=== PATIENT | female | born 1940 | race Caucasian/White ===

== ENCOUNTER → 2017-07-27 10:10 | Outpatient (REF) | payer MEDICARE, BC, SELFPAY ==
[2017-07-27 13:47] LABS: Basophils % 0.6 % (0.1-2.0); Eosinophils # 0.1 K/mm3 (0.0-0.4); Hematocrit 44.2 % (37.0-47.0); Hemoglobin 14.7 g/dL (12.2-16.2); Lymphocytes # 1.2 K/mm3 (0.7-4.5); Mean Corpuscular HGB Conc 33.2 g/dL (31.8-35.4); Mean Corpuscular Hemoglobin 31.3 pg (27.0-31.2); Mean Corpuscular Volume 94.2 fl (81-99); Mean Platelet Volume 7.3 fl (7.4-10.4); Monocytes # 0.3 K/mm3 (0.1-1.0); Monocytes % 4.4 % (1.7-9.3); Neutrophils # 5.7 K/mm3 (1.8-7.8); Platelet Count 442 K/mm3 (142-424); Red Blood Count 4.69 M/mm3 (4.20-5.40); Red Cell Distribution Width 13.4 % (11.5-17.5); White Blood Count 7.3 K/mm3 (4.8-10.8)
[2017-07-27 13:50] LABS: Alanine Aminotransferase 13 U/L (12-78); Albumin Level 3.9 gm/dL (3.4-5.0); Albumin/Globulin Ratio 1.2 (1.1-1.8); Alkaline Phosphatase 154 U/L (46-116); Anion Gap 19.4 mEq/L (5-15); Aspartate Amino Transferase 16 U/L (15-37); Bilirubin,Total 0.7 mg/dL (0.2-1.0); Blood Urea Nitrogen 18 mg/dL (7-18); Calcium 9.6 mg/dL (8.5-10.1); Carbon Dioxide 22 mmol/L (21.0-32.0); Chloride 97 mmol/L (98-107); Creatinine,Serum 0.93 mg/dL (0.55-1.02); Estimated Glomerular Filt Rate 58 ml/min (>60); GFR (African American) 71 ML/MIN (>60); Globulin 3.3 gm/dl (1.3-3.2); Glucose 95 mg/dL (74-106); Potassium 5.4 mmoL/L (3.5-5.1); Sodium 133 mmol/L (136-145); Total Protein,Serum 7.2 gm/dL (6.4-8.2)
== END ==
LOC: LAB.CARL 10:10
PROVIDERS: Visit Provider Emergency Medicine
DX: R53.1 Weakness (principal)
CPT/HCPCS: 80053; 85025

== ENCOUNTER 2018-07-30 11:11 | Inpatient (IN) ==
--- NOTE | 2018-07-30 11:25 | Emergency Department Note ---
ED Disposition Clinical Impression: Hip fracture, Pelvic fracture Hip fracture, intertrochanteric Qualifiers: Encounter type: initial encounter Fracture type: closed Fracture alignment: displaced Laterality: left Qualified Code(s): S72.142A - Displaced intertrochanteric fracture of left femur, initial encounter for closed fracture Disposition: Admitted As Inpatient Condition on Discharge: Fair Time of Disposition: 16:15 - Critical Care Critical Care Time: No Attestation: On , the high probability of a clinically significant, sudden or life threat ening deterioration of the following system(s) required my full and direct attention, intervention and personal management. The time I documented below is in addition to time spent performing reported procedures but includes the following listed in this critical care notation. Medical Decision Making - Medical Records Medical records reviewed: Yes: I reviewed the patient's medical records. - Rudy Inquiry Pt receiving controlled substance: No Rudy was queried for this patient: No Vital Signs: 07/30/18 11:11 07/30/18 11:36 07/30/18 12:11 Temperature 97.7 F Temperature Source Oral Pulse Rate Pulse Rate [Left Radial] 48 L 47 L 50 L Respiratory Rate 16 Blood Pressure Blood Pressure [Right Arm] 115/72 133/63 157/70 H Blood Pressure Mean [Right Arm] 86 86 99 Blood Pressure Source Blood Pressure Source [Right Arm] Automatic Cuff Automatic Cuff Blood Pressure Position Blood Pressure Position [Right Arm] Sitting Sitting 02 Sat by Pulse Oximetry 98 95 96 Oxygen Delivery Method Room Air 07/30/18 12:30 07/30/18 13:30 07/30/18 14:13 Temperature Temperature Source Pulse Rate Pulse Rate [Left Radial] 58 L 59 L 60 Respiratory Rate 16 Blood Pressure Blood Pressure [Right Arm] 162/77 H 133/81 124/61 Blood Pressure Mean [Right Arm] 105 98 82 Blood Pressure Source Blood Pressure Source [Right Arm] Automatic Cuff Blood Pressure Position Blood Pressure Position [Right Arm] Supine 02 Sat by Pulse Oximetry 97 98 Oxygen Delivery Method Room Air 07/30/18 14:23 Temperature 98 F Temperature Source Oral Pulse Rate 58 L Pulse Rate [Left Radial] Respiratory Rate 16 Blood Pressure 120/78 Blood Pressure [Right Arm] Blood Pressure Mean [Right Arm] Blood Pressure Source Automatic Cuff Blood Pressure Source [Right Arm] Blood Pressure Position Supine Blood Pressure Position [Right Arm] 02 Sat by Pulse Oximetry Oxygen Delivery Method Room Air - Lab Data Lab Results 07/30/18 11:35: WBC 15.2 H, RBC 3.49 L, Hgb 9.8 L, Hct 31.6 L, MCV 90.7, MCH 28.1, MCHC 30.9 L, RDW 15.0, Plt Count 435 H, MPV 7.7, Neut % (Auto) 86.9 H, Lymph % (Auto) 8.6 L, [place] % (Auto) 4.1, Eos % (Auto) 0.2, Baso % (Auto) 0.2, Neut # (Auto) 13.2 H, Lymph # (Auto) 1.3, [place] # (Auto) 0.6, Eos # (Auto) 0.0, Baso # (Auto) 0.0, Total Counted 100, Neutrophils % (Manual) 93 H, Lymphocytes % (Manual) 5 L, Monocytes % (Manual) 2, Platelet Estimate Slight increase, RBC Morphology Normal 07/30/18 11:35: Sodium 133 L, Potassium 4.9, Chloride 101, Carbon Dioxide 23, Anion Gap 13.9, BUN 21 H, Creatinine 0.98, Estimated Creat Clear 33, Estimated GFR 55 L, Est GFR ( Amer) 66, Glucose 153 H, Calcium 9.0, Total Bilirubin 0.3, AST 14 L, ALT 15, Alkaline Phosphatase 127 H, Troponin I 0.02, Total Protein 6.4, Albumin 3.3 L, Globulin 3.1, Albumin/Globulin Ratio 1.1 07/30/18 11:35: PT 10.1, INR 0.98, APTT 23.5 L 07/30/18 11:35: Plasma/Serum Alcohol 0 Result diagrams: 08/01/18 09:29 08/01/18 09:29 Orders (Tests/Meds): ED MEDICATIONS Generic Name Dose Route Start Last Admin Trade Name Mary PRN Reason Stop Dose Admin Aspirin 81 mg 08/01/18 11:15 08/01/18 13:01 Aspirin 81mg Enteric Coated Tablet PO 08/31/18 11:14 81 mg DAILY JOSE Administration Folic Acid 1 mg 07/31/18 11:00 08/01/18 09:57 Folic Acid 1mg Tablet PO 08/30/18 10:59 1 mg DAILY JOSE Administration Hydromorphone HCl 0.5 mg 07/30/18 18:39 07/31/18 05:50 Dilaudid 2mg/Ml Syringe IV 08/29/18 18:38 0.5 mg Q2HP PRN Administration Severe Pain Ceftriaxone Sodium 1 gm/ 50 mls @ 100 mls/hr 08/01/18 11:00 08/01/18 10:42 Sodium Chloride IV 08/15/18 10:59 100 mls/hr Q24H JOSE Administration Protocol Lorazepam 0.5 mg 07/31/18 10:49 Ativan 2mg/Ml Vial IV 08/30/18 10:48 Q6HP PRN Agitation Metoprolol Tartrate 12.5 mg 07/31/18 11:15 08/01/18 08:27 Lopressor 25mg Tablet PO 08/30/18 11:14 12.5 mg BID JOSE Administration Nicotine 21 mg 07/30/18 18:40 Nicoderm 21mg/24hr Patch TD 08/29/18 18:39 DAILYP PRN Nicotine Cravings Oxazepam 10 mg 07/30/18 14:24 Serax 10mg Capsule PO 08/29/18 14:23 Q6HP PRN Alcohol Withdrawal Oxycodone/Acetaminophen 1 each 07/30/18 18:38 07/31/18 03:57 Percocet 5/325mg Tablet PO 08/29/18 18:37 1 each Q6HP PRN Administration Breakthru Severe Pain Sodium Chloride 10 ml 07/30/18 14:24 Saline Flush 10ml Syringe IV 08/29/18 14:23 NEEDED PRN Maintain IV Site Discontinued Medications Generic Name Dose Route Start Last Admin Trade Name Freq PRN Reason Stop Dose Admin Ephedrine Sulfate 50 mg 07/30/18 18:05 07/30/18 18:10 Ephedrine Sulf 50mg/Ml Amp IV 10 mg ONCE PRN Administration Hypotension Sodium Chloride 250 mls @ 25 mls/hr 07/30/18 13:15 07/31/18 01:53 Sod Chlor 0.9% 250ml Bag IV 07/31/18 13:14 Not Given .Q10H JOSE Sodium Chloride 250 mls @ 25 mls/hr 07/30/18 14:24 07/31/18 10:57 Sod Chlor 0.9% 250ml Bag IV 07/31/18 13:14 Not Given .Q10H JOSE Sodium Chloride 1,000 mls @ 100 mls/hr 07/30/18 14:24 07/31/18 05:14 Sod Chlor 0.9% 1000ml Bag IV 08/29/18 14:23 Not Given .Q10H JOSE Lactated Ringer's 1,000 mls @ 25 mls/hr 07/30/18 18:15 07/31/18 19:02 Lactated Ringer's 1000 Ml Bag IV 08/29/18 18:14 Not Given .Q25H JOSE Cefazolin Sodium 1 gm/ Sodium 50 mls @ 100 mls/hr 07/30/18 18:45 07/31/18 03:05 Chloride IV 07/31/18 11:14 100 mls/hr Q8H JOSE Administration Protocol Cefazolin Sodium 1 gm/ Sodium 50 mls @ 100 mls/hr 07/31/18 08:30 07/31/18 17:14 Chloride IV 07/31/18 16:59 100 mls/hr Q8H JOSE Administration Protocol Multivitamins 10 ml/ Thiamine 1,015 mls @ 125 mls/hr 07/31/18 11:00 08/01/18 09:57 HCl 100 mg/ Magnesium Sulfate IV 08/30/18 10:59 Not Given 2 gm/ Lactated Ringer's DAILY JOSE Cefazolin Sodium 1 gm/ Sodium 50 mls @ 100 mls/hr 08/01/18 07:00 08/01/18 06:10 Chloride IV 08/15/18 06:59 100 mls/hr Q12H JOSE Administration Ketorolac Tromethamine 15 mg 07/30/18 11:22 07/30/18 11:39 Toradol 30mg/Ml Vial IV 07/30/18 11:23 15 mg ONCE ONE Administration Metoprolol Tartrate 12.5 mg 07/30/18 13:26 07/30/18 14:14 Lopressor 25mg Tablet PO 07/30/18 13:27 Not Given ONCE ONE Morphine Sulfate 2 mg 07/30/18 12:15 07/30/18 12:26 Morphine 2mg/Ml Syringe IV 07/30/18 12:16 2 mg ONCE ONE Administration Morphine Sulfate 2 mg 07/30/18 14:13 07/30/18 14:15 Morphine 2mg/Ml Syringe IV 07/30/18 14:14 2 mg ONCE ONE Administration Morphine Sulfate 2 mg 07/30/18 14:24 Morphine 4mg/Ml Syringe IV 08/29/18 14:23 Q2HP PRN Severe Pain Ondansetron HCl 4 mg 07/30/18 12:16 07/30/18 12:26 Zofran 4mg/2ml Vial IV 07/30/18 12:17 4 mg ONCE ONE Administration Ondansetron HCl 4 mg 07/30/18 14:24 07/31/18 08:10 Zofran 4mg/2ml Vial IV 08/29/18 14:23 4 mg Q8HP PRN Administration Nausea Promethazine HCl 6.25 mg 07/30/18 18:27 07/30/18 18:30 Phenergan 25mg/Ml 1ml Vial IV 07/30/18 20:27 6.25 mg [id number] PRN Administration Nausea And Vomiting Sodium Chloride 10 ml 07/30/18 11:20 Saline Flush 10ml Syringe IV 08/29/18 11:19 NEEDED PRN Maintain IV Site Sodium Chloride 10 ml 07/30/18 14:24 08/01/18 10:41 Saline Flush 10ml Syringe IV 08/29/18 11:19 10 ml NEEDED PRN Administration Maintain IV Site Sodium Chloride 10 ml 07/30/18 18:03 Saline Flush 10ml Syringe IV 08/29/18 18:02 NEEDED PRN Maintain IV Site Sodium Chloride 25 ml 07/30/18 18:27 Sod Chlor 0.9% 25ml Bag IV 07/30/18 20:27 NEEDED PRN for Use with IV Promethazine Sodium Polystyrene Sulfonate 15 gm 07/31/18 10:49 07/31/18 12:03 Kayexalate 15gm/60ml Bottle PO 07/31/18 10:50 15 gm ONCE ONE Administration ORDERS Category Date Time Status Consult to Cardiology [CONS] Routine Cons 07/30/18 12:37 Active Fall HPI - General Chief Complaint: Fall Time Seen by Provider: 07/30/18 11:22 Mode of Arrival: EMS Limitations: No Limitations Description of Symptoms (Recalled from ER Triage Doc. by RN): to ed per squad pt poor historian. pt states fell either lastnight or this am c/o lt hip pain unsure if she has any other pain unsure if any LOC. pt states she was unable to get off the floor after fall. cpta none - History of Present Illness HPI Narrative: fell allegedly last night, cat jumped on her. may have been on floor all night - Related Data Home Medications Medication Instructions Recorded Confirmed RX: Amlodipine Besylate [Norvasc 5 mg PO DAILY 07/30/18 07/30/18 5mg tablet] Allergies Allergy/AdvReac Type Severity Reaction Status Date / Time tetanus immune globulin Allergy Verified 07/30/18 14:51 [facility] History - Hepatitis A Screen Drug use history?: No High risk sexual behaviors?: No History of sexually transmitted infection?: No Currently employed?: No Childcare worker?: No Do you have indoor plumbing?: Yes Do you have electricity?: Yes Attestation statement:: This patient has been screened for Hepatitis A risk factors. I have reviewed the patient's past medical history: Yes - Social History Smoking Status: Current every day smoker Tobacco Type: cigarettes Alcohol Intake: current Alcohol Intake Frequency:: 3 or more drinks per day Occupational Status: other - Psychiatric History Expresses thoughts of harming self/others: None Suicide Plan Description: No Plan ROS Obtained: Yes All systems reviewed & no additional complaints - Constitutional Constitutional: Reports system reviewed and no additional complaints, except as docu, Denies lethargy, Denies weakness - Eyes Eyes: Reports system reviewed and no additional complaints, except as docu, Denies change in vision - ENT Ears, Nose, Mouth, and Throat: Reports system reviewed and no additional complaints, except as docu, Denies sore throat, Denies throat swelling - Cardiovascular Cardiovascular: Reports system reviewed and no additional complaints, except as docu, Denies chest pain, Denies chest pain at rest, Denies chest pain with activity, Denies dyspnea on exertion - Respiratory Respiratory: Yes system reviewed and no additional complaints, except as docu, No chest congestion, No cough - Gastrointestinal Gastrointestingal: Reports: system reviewed and no additional complaints, except as docu. Denies: nausea, vomiting - Genitourinary Female Genitourinary: Reports system reviewed and no additional complaints, except as docu, Denies abnormal vaginal bleeding, Reports pelvic pain - Musculoskeletal Musculoskeletal: Reports system reviewed and no additional complaints, except as docu, Reports joint stiffness, Reports limited range of motion, Reports muscle aches, Reports radiating pain into limb, Reports stiffness - Integumentary/Breasts Skin/Breast: Reports system reviewed and no additional complaints, except as docu, Denies rash, Denies unusual bruising - Neurologic Neurologic: Reports system reviewed and no additional complaints, except as docu, Denies focal weakness, Denies loss of vision, Denies seizure-like activity - Endocrine Endocrine: Reports system reviewed and no additional complaints, except as docu - Hematologic/Lymphatic Henatologic/Lymphatic: Denies easy bleeding, Denies easy bruising, Denies lymphadenopathy Physical Exam - General General appearance: alert - Head Head exam: atraumatic, normocephalic, normal inspection - Eye Eye exam: Present: normal appearance, PERRL, EOMI - ENT ENT exam: Present: normal exam, normal oropharynx, mucous membranes moist, TM's normal bilaterally, normal external ear exam - Neck Neck exam: Present: normal inspection, trachea midline, tenderness, other (kyphotic). Absent: full ROM - Chest Chest inspection: Present: normal inspection, symmetric chest wall rise. Absent: tenderness - Respiratory Respiratory exam: Present: normal lung sounds bilaterally. Absent: respiratory distress - Abdominal Exam Abdominal exam: Present: soft. Absent: distention, tenderness, guarding, rebound - Extremities Exam Extremities exam: Present: tenderness, normal capillary refill. Absent: normal inspection, full ROM - Expanded Lower Extremity Exam Left Hip/Pelvis exam: Present: tenderness, swelling, deformity. Absent: full ROM, pelvis stable Upper leg exam: Present: tenderness, swelling. Absent: normal inspection, full ROM Knee exam: Present: normal inspection Lower leg exam: Present: normal inspection Ankle exam: Present: normal inspection, full ROM Foot/toe exam: Present: normal inspection, full ROM - Back Exam Back exam: Present: normal inspection. Absent: tenderness - Neurological Exam Neurological exam: Present: alert, CN II-XII intact - Psychiatric Psychiatric exam: Present: normal affect, normal mood - Skin Skin exam: Present: warm, dry, intact, normal color. Absent: cyanosis, erythema
[2018-07-30 12:06] LABS: Basophils % 0.2 % (0.1-2.0); Eosinophils % 0.2 % (0.1-12.0); Hematocrit 31.6 % (37.0-47.0); Hemoglobin 9.8 g/dL (12.2-16.2); Lymphocytes # 1.3 K/mm3 (0.7-4.5); Lymphocytes % 8.6 % (10-50); Mean Corpuscular HGB Conc 30.9 g/dL (31.8-35.4); Mean Corpuscular Hemoglobin 28.1 pg (27.0-31.2); Mean Corpuscular Volume 90.7 fl (81-99); Mean Platelet Volume 7.7 fl (7.4-10.4); Monocytes # 0.6 K/mm3 (0.1-1.0); Monocytes % 4.1 % (1.7-9.3); Neutrophils # 13.2 K/mm3 (1.8-7.8); Neutrophils % 86.9 % (37.0-80.0); Platelet Count 435 K/mm3 (142-424); Red Blood Count 3.49 M/mm3 (4.20-5.40); White Blood Count 15.2 K/mm3 (4.8-10.8)
[2018-07-30 12:10] LABS: Albumin Level 3.3 gm/dL (3.4-5.0); Albumin/Globulin Ratio 1.1 (1.1-1.8); Anion Gap 13.9 mEq/L (5-15); Bilirubin,Total 0.3 mg/dL (0.2-1.0); Globulin 3.1 gm/dl (1.3-3.2); Potassium 4.9 mmoL/L (3.5-5.1); Total Protein,Serum 6.4 gm/dL (6.4-8.2)
[2018-07-30 12:23] LABS: Lymphocytes % 5 % (10-50); Monocytes % 2 % (2-9); Neutrophils % 93 % (42-76); RBC Morphology Normal; Total Cells Counted 100
[2018-07-30 12:27] LABS: Activated Partial Thrombo Time 23.5 seconds (23.6-34.0); INR 0.98 (0.9-1.1); Prothrombin Time 10.1 seconds (9.4-11.8)
--- NOTE | 2018-07-30 13:30 | History & Physical Report ---
*Admission Date: 07/30/18 *Chief complaint: fall *History of present illness: pt with fall this am and was lying for a few hrs - she reports trip type injury with no loc - she has hip pain and brought by ems to [facility]- she was found to have hip fx and pelvis fx -she has hx of breat cancer in past and tob and etoh use - ed per squad pt poor historian. pt states fell either lastnight or this am c/o lt hip pain unsure if she has any other pain unsure if any LOC. pt states she was unable to get off the floor after fall. cpta none fell allegedly last night, cat jumped on her. may have been on floor all [facility] History I have reviewed the patient's past medical history: Yes - *Social History Smoking Status: Current every day smoker Tobacco Type: cigarettes Alcohol Intake: current Alcohol Intake Frequency:: 3 or more drinks per day Occupational Status: other Travel in the last 8 weeks: None - Psychiatric History Expresses thoughts of harming self/others: None Suicide Plan Description: No Plan Review of Systems - Review of Systems Review of systems:: pertinent systems reviewed and negative unless documented below - Constitutional Denies fever(s) - Eyes Denies change in vision - ENT Denies neck pain, Denies sore throat - *Cardiovascular Denies chest pain at rest, Denies shortness of breath - *Respiratory Denies cough, Denies coughing up blood - *Gastrointestinal Denies abdominal pain - *Genitourinary Denies blood in urine - *Musculoskeletal Reports joint pain, Reports limited joint movement, Denies neck pain - Integumentary/Breasts Denies rash - *Neurologic Denies confusion, Denies seizure-like activity, Denies localized weakness, Denies loss of vision, Denies seizure-like activity, Denies weakness Meds Home Medications Medication Instructions Recorded Confirmed Type Amlodipine Besylate [Norvasc 5mg 5 mg PO DAILY 07/30/18 07/30/18 History tablet] Allergies Allergy/AdvReac Type Severity Reaction Status Date / Time No Known Drug Allergies Allergy Unknown Verified 07/30/18 11:22 [NKDA] Exam Vital signs and Labs for Last 24 Hours: Temp Pulse Resp BP Pulse Ox 97.7 F 58 L 16 162/77 H 97 07/30/18 11:11 07/30/18 12:30 07/30/18 11:11 07/30/18 12:30 07/30/18 12:30 Laboratory Results - last 24 hr 07/30/18 11:35: WBC 15.2 H, RBC 3.49 L, Hgb 9.8 L, Hct 31.6 L, MCV 90.7, MCH 28.1, MCHC 30.9 L, RDW 15.0, Plt Count 435 H, MPV 7.7, Neut % (Auto) 86.9 H, Lymph % (Auto) 8.6 L, [place] % (Auto) 4.1, Eos % (Auto) 0.2, Baso % (Auto) 0.2, Neut # (Auto) 13.2 H, Lymph # (Auto) 1.3, [place] # (Auto) 0.6, Eos # (Auto) 0.0, Baso # (Auto) 0.0, Total Counted 100, Neutrophils % (Manual) 93 H, Lymphocytes % (Manual) 5 L, Monocytes % (Manual) 2, Platelet Estimate Slight increase, RBC Morphology Normal 07/30/18 11:35: Sodium 133 L, Potassium 4.9, Chloride 101, Carbon Dioxide 23, Anion Gap 13.9, BUN 21 H, Creatinine 0.98, Estimated Creat Clear 33, Estimated GFR 55 L, Est GFR ( Amer) 66, Glucose 153 H, Calcium 9.0, Total Bilirubin 0.3, AST 14 L, ALT 15, Alkaline Phosphatase 127 H, Troponin I 0.02, Total Protein 6.4, Albumin 3.3 L, Globulin 3.1, Albumin/Globulin Ratio 1.1 07/30/18 11:35: PT 10.1, INR 0.98, APTT 23.5 L I & O for Last 24 hours: Intake & Output 07/28/18 07/29/18 07/30/18 07/31/18 11:59 11:59 11:59 11:59 Weight 100 lb - Constitutional no acute distress, thin - *Routine HEENT Exam Head: Present: normocephalic, atraumatic Eye: Present: EOMI, PERRL ENT: Present: mucous membranes dry - *Routine Neck Exam Present: supple. Absent: JVD, carotid bruit - *Routine Respiratory Exam Present: decreased breath sounds. Absent: respiratory distress - *Routine Cardiovascular Exam Present: RRR, murmur, S4 - *Routine Abdominal Exam Present: soft. Absent: tenderness - *Routine Extremities Exam Absent: calf tenderness - Routine Back/Spine/Pelvis Exam Comments: pelvis stable but pain with movement - *Routine Skin Exam Present: intact - *Routine Neurological Exam Present: CN II-XII intact. Absent: sensory deficit, motor deficit gcs=15 - Routine Psychiatric Exam Present: normal affect Assessment and Plan (1) Hip fracture, intertrochanteric Current visit: Yes Status: Acute Qualifiers: Encounter type: initial encounter Fracture type: closed Fracture alignment: displaced Laterality: left Qualified Code(s): S72.142A - Displaced intertrochanteric fracture of left femur, initial encounter for closed fracture Category: Medical Code(s): S72.143A - Displaced intertrochanteric fracture of unspecified femur, initial encounter for closed fracture (2) Closed fracture of single pubic ramus of pelvis Current visit: Yes Status: Acute Qualifiers: Encounter type: initial encounter Laterality: right Qualified Code(s): S32.591A - Other specified fracture of right pubis, initial encounter for closed fracture Category: Medical Code(s): S32.509A - Unspecified fracture of unspecified pubis, initial encounter for closed fracture (3) Low body mass index (BMI) Current visit: Yes Status: Acute Category: Medical (4) History of rib fracture Current visit: Yes Status: Acute Category: Medical Code(s): Z87.81 - Personal history of (healed) traumatic fracture (5) H/O kyphoplasty Current visit: Yes Status: Acute Category: Surgical Code(s): Z98.890 - Other specified postprocedural states (6) Anemia Current visit: Yes Status: Acute Qualifiers: Anemia type: unspecified type Qualified Code(s): D64.9 - Anemia, unspecified Category: Medical Code(s): D64.9 - Anemia, unspecified (7) Tobacco use Current visit: Yes Status: Acute Category: Medical Code(s): Z72.0 - Tobacco use (8) Alcohol use disorder Current visit: Yes Status: Acute Category: Medical
--- NOTE | 2018-07-30 13:32 | Consult Report ---
History of Present Illness Consult date: 07/30/18 Requesting physician: Chalino Oconnor Consult reason: pre-op evaluation Chief complaint: Left hip fracture after fall Additional Medical History:: 1. Tobacco use, continuous approximately 1 pack/day 2. History of ETOH use 3. Remote History of breast cancer x2 (approximate 4 years apart) with left mastectomy and chemotherapy at 4. Mild dementia 5. Hypertension History of present illness: 77-year-old white female brought to the emergency department for complaint of left hip pain. Patient was found after sustaining a fall either last night or early this morning. She states she tripped over her cat. X-rays revealed fracture of the left hip. EKG shows sinus rhythm at 93 bpm with RSR prime pattern and left anterior fascicular block. QT interval measured as prolonged but visually not prolonged. Patient denies any recent chest pain, pressure or tightness. Has any previous cardiac history. Cardiology consulted for evaluation recommendations and for preop evaluation. [facility] History - *Social History Smoking Status: Current every day smoker Tobacco Type: cigarettes Alcohol Intake: current Alcohol Intake Frequency:: 3 or more drinks per day Occupational Status: other Travel in the last 8 weeks: None - Psychiatric History Expresses thoughts of harming self/others: None Suicide Plan Description: No Plan Meds Home Medications Medication Instructions Recorded Confirmed Type Amlodipine Besylate [Norvasc 5mg 5 mg PO DAILY 07/30/18 07/30/18 History tablet] Allergies Allergy/AdvReac Type Severity Reaction Status Date / Time No Known Drug Allergies Allergy Unknown Verified 07/30/18 11:22 [NKDA] Review of Systems - *Cardiovascular Denies chest pain, Denies shortness of breath with activity - *Respiratory Denies shortness of breath - *Gastrointestinal Denies abdominal pain - *Genitourinary Denies blood in urine - *Neurologic Denies localized weakness, Denies loss of vision, Denies seizure-like activity, Denies weakness Exam Vital signs and Labs for Last 24 Hours: Temp Pulse Resp BP Pulse Ox 97.7 F 58 L 16 162/77 H 97 07/30/18 11:11 07/30/18 12:30 07/30/18 11:11 07/30/18 12:30 07/30/18 12:30 Laboratory Results - last 24 hr 07/30/18 11:35: WBC 15.2 H, RBC 3.49 L, Hgb 9.8 L, Hct 31.6 L, MCV 90.7, MCH 28.1, MCHC 30.9 L, RDW 15.0, Plt Count 435 H, MPV 7.7, Neut % (Auto) 86.9 H, Lymph % (Auto) 8.6 L, [place] % (Auto) 4.1, Eos % (Auto) 0.2, Baso % (Auto) 0.2, Neut # (Auto) 13.2 H, Lymph # (Auto) 1.3, [place] # (Auto) 0.6, Eos # (Auto) 0.0, Baso # (Auto) 0.0, Total Counted 100, Neutrophils % (Manual) 93 H, Lymphocytes % (Manual) 5 L, Monocytes % (Manual) 2, Platelet Estimate Slight increase, RBC Morphology Normal 07/30/18 11:35: Sodium 133 L, Potassium 4.9, Chloride 101, Carbon Dioxide 23, Anion Gap 13.9, BUN 21 H, Creatinine 0.98, Estimated Creat Clear 33, Estimated GFR 55 L, Est GFR ( Amer) 66, Glucose 153 H, Calcium 9.0, Total Bilirubin 0.3, AST 14 L, ALT 15, Alkaline Phosphatase 127 H, Troponin I 0.02, Total Protein 6.4, Albumin 3.3 L, Globulin 3.1, Albumin/Globulin Ratio 1.1 07/30/18 11:35: PT 10.1, INR 0.98, APTT 23.5 L I & O for Last 24 hours: Intake & Output 07/28/18 07/29/18 07/30/18 07/31/18 11:59 11:59 11:59 11:59 Weight 100 lb - *Routine Neck Exam Present: supple, carotid bruit. Absent: JVD Comments: Bilateral soft carotid bruits versus radiation murmurs noted - *Routine Respiratory Exam Present: decreased breath sounds, diminished air movement. Absent: accessory muscle use, rales, rhonchi, wheezes - *Routine Cardiovascular Exam Present: RRR, murmur. Absent: gallop, rubs - *Routine Abdominal Exam Present: soft. Absent: tenderness, distended, guarding - *Routine Extremities Exam Absent: edema, calf tenderness - *Routine Neurological Exam Present: alert, oriented X3, moving all extremities Answers questions appropriately. Assessment and Plan (1) Hip fracture, intertrochanteric Current visit: Yes Status: Acute Qualifiers: Encounter type: initial encounter Fracture type: closed Fracture alignment: displaced Laterality: left Qualified Code(s): S72.142A - Displaced intertrochanteric fracture of left femur, initial encounter for closed fracture Category: Medical Code(s): S72.143A - Displaced intertrochanteric fracture of unspecified femur, initial encounter for closed fracture (2) HHD (hypertensive heart disease) Current visit: Yes Status: Acute Category: Medical Code(s): I11.9 - Hypertensive heart disease without heart failure (3) Alcohol use disorder Current visit: Yes Status: Acute Category: Medical (4) Anemia Current visit: Yes Status: Acute Qualifiers: Anemia type: unspecified type Qualified Code(s): D64.9 - Anemia, unspecified Category: Medical Code(s): D64.9 - Anemia, unspecified (5) Tobacco use Current visit: Yes Status: Acute Category: Medical Code(s): Z72.0 - Tobacco use - Assessment and plan all Dx Assessment and Plan for all problems:: 1. Echocardiogram today shows normal left ventricular size and function with left ventricular hypertrophy. Mild MR and TR noted. 2. Recommend discontinuing Norvasc 3. Recommend Lopressor 12.5 mg twice daily perioperatively and postop for treatment of hypertension with LVH. 4. Patient is cleared from a cardiology standpoint to proceed with left hip surgery
--- NOTE | 2018-07-30 14:14 | Cardiology Report ---
PROCEDURE: 2-D M-mode and color Doppler study INDICATIONS FOR THE TEST: Chest pain COPD Heart Murmur Tobacco Smoking+ Palpitations Fatigue Syncope Edema Hypertension Diabetes Mellitus Rheumatic Fever SOB LOWERY Obesity Hyperlipidemia Family History HD Additional History ALCOHOL USE, FELL TODAY, FX HIP PATIENT INFORMATION HEIGHT: 64 WEIGHT:100 GENDER: Female B/P:115/72 2-D/M-MODE INTERPRETATION: 2-D MEASUREMENTS OBSERVED VALUES IN CMS Right Ventricular Dimension (RVDd) 2.0 Interventricular Septum (Thickness)(IVsd) 1.0 Left Ventricular Internal Dimensions(LVIDd) 3.6 Left Ventricular Posterior Wall (Thickness)(LVPWd) 0.8 Aortic Root 3.3 Aortic Cusp Separation 1.7 Left Atrial Dimensions (LAD) 3.5 2D 1. Left atrium is mildly enlarged, left ventricle is normal size, mild concentric left ventricular hypertrophy, visually estimated ejection fraction 55% with no regional wall motion abnormality. 2. The right atrium and right ventricle are normal size and contractility. 3. The aortic valve is thickened and calcified leaflet continue to display mobility. 4. The mitral and tricuspid valve leaflets are minimally thickened. 5. The pulmonic valve is poorly visualized. 6. No Significant pericardial effusion noted. DOPPLER INTERROGATION: Doppler interrogation of the aortic, mitral and tricuspid valvular presence of mild mitral and tricuspid regurgitation, tricuspid regurgitation jet velocity is inadequate for calculation of the right ventricular systolic pressure, Doppler evidence of impaired LV relaxation seen. CONCLUSION: 1. Mildly enlarged left atrium, normal left ventricular size, mild concentric left ventricular hypertrophy, visually estimated ejection fraction 55% with no regional wall motion abnormality, Doppler evidence of impaired relaxation seen. 2. Mild mitral and tricuspid regurgitation 3. No significant pericardial effusion noted.
--- NOTE | 2018-07-30 14:49 | Progress Note ---
[facility] Anesthesia Checklist - Patient Identification Patient Identification: Arm Band, Verbal (Name & ) - Structural Data Admitted From: Inpatient Planned Operative Procedure/s: left hip gamma nail Consent for Planned Operative Procedure(s) Verified: Yes Verified Documents: History and Physical - NPO Status Verified Time NPO: 00:00 - Additional verifications Patient : No Anesthesia Reactions: No Hx Blood Transfusions: No Blood Transfusion Reaction: No Cephalosporin Allergy: No Previous Colonoscopy: No - Cardiovascular Assessment Heart Sounds: S1 & S2 Pulse Strength: Baseline Pulse Rhythm: Regular Peripheral Edema: No - Airway Assessment C-Spine Mobility Assessed: Yes TMJ Mobility Assessed: Yes - Neurological Assessment Level of Consciousness: Awake, Alert, Appropriate Hx Seizures: No Numbness or tingling in extremities: No - Anesthesia Plan Anesthesia Risk discussed: Yes Anesthesia Plan: Verified ASA Class: III Anesthesia Type: Spinal [facility] History I have reviewed the patient's past medical history: Yes Medical History: Reports:: Hypertension - *Social History Smoking Status: Current every day smoker Tobacco Type: cigarettes Alcohol Intake: current Alcohol Intake Frequency:: 3 or more drinks per day Occupational Status: other Travel in the last 8 weeks: None - Psychiatric History Expresses thoughts of harming self/others: None Suicide Plan Description: No Plan
--- NOTE | 2018-07-30 15:35 | Consult Report ---
*Admission Date: 07/30/18 *Chief complaint: L hip pain *History of present illness: 77yo F with a chief complaint of L hip pain s/p fall at home earlier today. She does not know exactly what time she fell, but says it was just getting light outside. She is a poor historian with mild dementia and poor short term memory; she was walking, likely into the kitchen, and believes her cat got underfoot. She fell, unsure of what side, and is unsure if she had LOC. It is unknown how long she was on the floor, but she was found in the morning by her neighbor, who helps look in on her. He is her POA and she would like to have him sign her surgical consent, though I'm unsure if there is a legal document giving him POA. The patient currently complains of pain, but can't vocalize where; she says she's "not sure" when asked where she hurts. No apparent numbness distally in the LLE, able to move her L foot. She lives alone and ambulates in the house; she requires assistance for several things. No anti-coagulant use, no apparent cardiac history that is known. She is a smoker (1ppd) and consumes alcohol daily, though PEGGY in the ER was 0. Review of Systems - Review of Systems Review of systems:: pertinent systems reviewed and negative unless documented below - *Neurologic Denies confusion, Denies seizure-like activity, Denies localized weakness, Denies loss of vision, Denies seizure-like activity, Denies weakness [facility] History Medical History: Reports:: Hypertension Denies:: Seizures Other Medical History: Denies: Blood Transfusion Reaction - *Social History Smoking Status: Current every day smoker Tobacco Type: cigarettes Alcohol Intake: current Alcohol Intake Frequency:: 3 or more drinks per day Occupational Status: other Travel in the last 8 weeks: None - Psychiatric History Expresses thoughts of harming self/others: None Suicide Plan Description: No Plan Meds Home Medications Medication Instructions Recorded Confirmed Type Amlodipine Besylate [Norvasc 5mg 5 mg PO DAILY 07/30/18 07/30/18 History tablet] Allergies Allergy/AdvReac Type Severity Reaction Status Date / Time tetanus immune globulin Allergy Verified 07/30/18 14:51 Exam Vital signs and Labs for Last 24 Hours: Temp Pulse Resp BP Pulse Ox 98 F 58 L 16 120/78 98 07/30/18 14:23 07/30/18 14:23 07/30/18 14:23 07/30/18 14:23 07/30/18 14:13 Laboratory Results - last 24 hr 07/30/18 11:35: WBC 15.2 H, RBC 3.49 L, Hgb 9.8 L, Hct 31.6 L, MCV 90.7, MCH 28.1, MCHC 30.9 L, RDW 15.0, Plt Count 435 H, MPV 7.7, Neut % (Auto) 86.9 H, Lymph % (Auto) 8.6 L, [place] % (Auto) 4.1, Eos % (Auto) 0.2, Baso % (Auto) 0.2, Neut # (Auto) 13.2 H, Lymph # (Auto) 1.3, [place] # (Auto) 0.6, Eos # (Auto) 0.0, Baso # (Auto) 0.0, Total Counted 100, Neutrophils % (Manual) 93 H, Lymphocytes % (Manual) 5 L, Monocytes % (Manual) 2, Platelet Estimate Slight increase, RBC Morphology Normal 07/30/18 11:35: Sodium 133 L, Potassium 4.9, Chloride 101, Carbon Dioxide 23, Anion Gap 13.9, BUN 21 H, Creatinine 0.98, Estimated Creat Clear 33, Estimated GFR 55 L, Est GFR ( Amer) 66, Glucose 153 H, Calcium 9.0, Total Bilirubin 0.3, AST 14 L, ALT 15, Alkaline Phosphatase 127 H, Troponin I 0.02, Total Protein 6.4, Albumin 3.3 L, Globulin 3.1, Albumin/Globulin Ratio 1.1 07/30/18 11:35: PT 10.1, INR 0.98, APTT 23.5 L 07/30/18 11:35: Plasma/Serum Alcohol 0 07/30/18 13:35: Blood Type B Negative, Antibody Screen Negative, Crossmatch (AHG) See Detail 07/30/18 14:17: Blood Type Confirm B Negative I & O for Last 24 hours: Intake & Output 07/28/18 07/29/18 07/30/18 07/31/18 11:59 11:59 11:59 11:59 Weight 100 lb - *Routine Extremities Exam Comments: patient supine in bed, LLE shortened and ER +DF/PF/EHL LLE SILT distally LLE in all distributions calf soft, non-tender LLE palpable pedal pulses LLE, foot warm and well-perfused superficial abrasions, slight ecchymosis over lateral L thigh/hip; do not appear in line with surgical incisions Results - Labs Result Diagrams: 07/30/18 11:35 07/30/18 11:35 Labs: Abnormal lab results 07/30/18 07/30/18 07/30/18 Range/Units 11:35 11:35 11:35 WBC 15.2 H (4.8-10.8) K/mm3 RBC 3.49 L (4.20-5.40) M/mm3 Hgb 9.8 L (12.2-16.2) g/dL Hct 31.6 L (37.0-47.0) % MCHC 30.9 L (31.8-35.4) g/dL Plt Count 435 H (142-424) K/mm3 Neut % (Auto) 86.9 H (37.0-80.0) % Lymph % (Auto) 8.6 L (10-50) % Neut # (Auto) 13.2 H (1.8-7.8) K/mm3 Neutrophils % (Manual) 93 H (42-76) % Lymphocytes % (Manual) 5 L (10-50) % APTT 23.5 L (23.6-34.0) seconds Sodium 133 L (136-145) mmol/L BUN 21 H (7-18) mg/dL Estimated GFR 55 L (>60) ml/min Glucose 153 H (74-106) mg/dL AST 14 L (15-37) U/L Alkaline Phosphatase 127 H (46-116) U/L Albumin 3.3 L (3.4-5.0) gm/dL Crossmatch (AHG) 07/30/18 Range/Units 13:35 WBC (4.8-10.8) K/mm3 RBC (4.20-5.40) M/mm3 Hgb (12.2-16.2) g/dL Hct (37.0-47.0) % MCHC (31.8-35.4) g/dL Plt Count (142-424) K/mm3 Neut % (Auto) (37.0-80.0) % Lymph % (Auto) (10-50) % Neut # (Auto) (1.8-7.8) K/mm3 Neutrophils % (Manual) (42-76) % Lymphocytes % (Manual) (10-50) % APTT (23.6-34.0) seconds Sodium (136-145) mmol/L BUN (7-18) mg/dL Estimated GFR (>60) ml/min Glucose (74-106) mg/dL AST (15-37) U/L Alkaline Phosphatase (46-116) U/L Albumin (3.4-5.0) gm/dL Crossmatch (AHG) See Detail H & H 07/30/18 Range/Units 11:35 Hgb 9.8 L (12.2-16.2) g/dL Hct 31.6 L (37.0-47.0) % Coagulation 07/30/18 Range/Units 11:35 INR 0.98 (0.9-1.1) All other labs normal. - Diagnostic results Hip x-ray: report reviewed, image reviewed (displaced intertrochanteric fracture L hip) Assessment and Plan (1) Hip fracture, intertrochanteric Current visit: Yes Status: Acute Qualifiers: Encounter type: initial encounter Fracture type: closed Fracture alignment: displaced Laterality: left Qualified Code(s): S72.142A - Displaced intertrochanteric fracture of left femur, initial encounter for closed fracture Category: Medical Code(s): S72.143A - Displaced intertrochanteric fracture of unspecified femur, initial encounter for closed fracture (2) HHD (hypertensive heart disease) Current visit: Yes Status: Acute Category: Medical Code(s): I11.9 - Hypertensive heart disease without heart failure (3) Alcohol use disorder Current visit: Yes Status: Acute Category: Medical (4) Anemia Current visit: Yes Status: Acute Qualifiers: Anemia type: unspecified type Qualified Code(s): D64.9 - Anemia, unspecified Category: Medical Code(s): D64.9 - Anemia, unspecified (5) Tobacco use Current visit: Yes Status: Acute Category: Medical Code(s): Z72.0 - Tobacco use - Assessment and plan all Dx Assessment and Plan for all problems:: 77yo F with L hip intertrochanteric fracture -- NPO, IVF -- labs look ok, cleared by both Dr. Oconnor and cardiology -- will take to OR this afternoon for IMN L femur -- further orders/instructions to be placed after surgery -- surgery was discussed with the patient, including risks, benefits and alternatives, including non-operative treatment, and she is electing to proceed with surgery. However, she wants her POA to sign the consent; he was called and verbal consent obtained; Tejinder Lord.
--- NOTE | 2018-07-30 18:02 | Progress Note ---
[facility] [place] Anesthesia Record Part I Intake, IV Amount: 1,000 Estimated blood loss (mL): 75 Urine output (mL): 150 Blood Products used (#): none Blood Pressure: 90/60 SaO2: 100 Pulse Rate: 56 Respiratory Rate: 20 Temperature: 97.7 F Patient is:: Drowsy, Stable Stable to PACU at:: 17:58
--- NOTE | 2018-07-30 18:03 | Progress Note ---
[facility] Anesthesia Record Part II Discharge Time: 18:28 Destination: Medical Surgical Department PACU nurse assessment reviewed?: Yes Patient Condition:: Good Anesthesia Complications:: None Swallowing reflex intact?: Yes Cyanosis?: No
--- NOTE | 2018-07-30 18:48 | Operative Note ---
Date of procedure: 07/30/18 Pre-op Diagnosis:: intertrochanteric fracture of L femur Post-op Diagnosis:: intertrochanteric fracture of L femur Procedure performed:: intramedullary nail L femur (short gamma nail) Surgeon:: Elana Lott MD WHARF BUILDER:: Frank Colon Anesthesia: spinal Estimated blood loss (mL): 75 Clinical Note:: 77-year-old female who presented to the emergency department this morning after having been found down. Somewhere around 4 AM according to her nephew, she got up to get something to drink in the kitchen and fell, possibly tripping over her cat. The patient had immediate pain in the left hip and was unable to get up. She lay on the floor until discovered by family later in the morning. She is not sure whether or not she lost consciousness. She is a heavy smoker and is reported to consume several alcoholic drinks daily. She denies numbness or tingling distally in the left lower extremity and pain is localized only to the left hip at this time. X-rays showed a displaced intertrochanteric fracture of the left proximal femur as well as a nondisplaced inferior pubic ramus fracture on the right. I discussed treatment options with the patient including both operative and nonoperative therapies, and I am recommending surgical treatment at this time. We discussed the risks, including infection, bleeding, nonunion, malunion, hardware failure, difficulty with ambulation after surgery, neurovascular damage, need for blood transfusion, and the risks of anesthesia. The patient did not want to sign her surgical consent herself but would rather have her power of banking attorney, who she described as her neighbor Tejinder. After talking with Tejinder, he is her nephew and he is her power of banking attorney. He was not at the hospital by gave verbal consent over the telephone for surgery. The patient was seen by both Dr. Oconnor, who is her primary care physician, and by cardiology; they both cleared her for surgery. Operative findings:: intertrochanteric fracture L hip [place] short gamma nail, 11 x 180mm, 125deg lag screw, 10.5 x 95mm distal interlocking screw, 5 x 30mm Operative note:: The patient was identified in preoperative holding and the left hip signed by myself. She was then taken to the operating room where spinal anesthetic was p erformed by anesthesia. Once the spinal was completed she was transferred to the fracture table and sedated. The left lower extremity was secured into the table and placed in traction while the uninjured right lower extremity was placed in a flexed and abducted position. Using a combination of longitudinal traction, adduction and internal rotation of the left lower extremity, the left hip fracture was reduced under fluoroscopic guidance. Once the hip was reduced, the hip was prepped and draped in the usual sterile fashion; this was performed with a chlorhexidine prep and a [place] shower curtain drape. Timeout was performed, identifying the correct patient, correct procedure and correct site. Procedure was begun by using a free guidepin held over the hip to localize the level of the greater trochanter. Approximately 2 cm proximal to this, a longitudinal incision was made on the lateral aspect of the hip approximately 3 cm long. The guidepin was placed over the tip of the greater trochanter and fluoroscopy used to confirm the appropriate starting point. The patient's bone was rather soft in this region so the guidepin was actually able to be advanced by hand. It was advanced into the proximal femur and an awl was used to create the entry hole in the tip of the greater trochanter. Incision was made to use a short gamma nail, and an 11 mm nail seemed most appropriate. An 11 mm diameter, 180 mm long, 125 degree gamma nail was advanced through the entry hole and into the proximal femur. It was advanced until the slot for the lag screw was at the desired height on the femoral neck. Next, a guidepin was threaded from the lateral aspect of the thigh into the aiming arm on the side of the nail and into the femoral neck. It was advanced proximally until the desired tip apex distance was met. The measuring tool was used to determine a size 95 mm lag screw would be appropriate. The screw path was drilled and a 10.5 mm diameter, 95 mm long lag screw was advanced into the femoral neck and head. It appeared to be appropriately positioned on both AP and lateral x-ray. Next, the set screw was placed into the top of the nail and secured in place tightly. To secure the distal nail, the locking screw guide was placed through the side arm and the drill bit used to drill both cortices of the femoral shaft. The screw was measuring around 30 mm long, so it through this hole I placed a 5 mm diameter fully threaded, 30 mm long screw and this was advanced under hand power until tightly seated. This completed the procedure and the side arm was removed from the nail, final x-rays taken with confirmation of good positioning of both AP and lateral x-rays. All incisions were irrigated copiously with sterile saline and use bacitracin, and the wounds closed in a layered fashion. The fascia/IT band were closed with 0 Vicryl, followed by 2-0 Vicryl on the subcutaneous tissue, and nory for the skin. The wounds were dressed with Xeroform, 4 x 4's and sterile Tegaderms. The patient was then transferred back to her cart and taken to PACU in good condition. She will be transferred to the [facility] floor and placed on telemetry overnight. There were no complications during this case. Condition: stable Disposition: floor Specimens:: none Complications:: none
[2018-07-30 19:17] LABS: Hemoglobin 6.8 g/dL (12.2-16.2)
[2018-07-30 19:18] LABS: Hematocrit 22.4 % (37.0-47.0)
[2018-07-31 04:55] LABS: Basophils % 0.3 % (0.1-2.0); Eosinophils % 0.2 % (0.1-12.0); Hematocrit 34.7 % (37.0-47.0); Lymphocytes # 1.3 K/mm3 (0.7-4.5); Lymphocytes % 12.3 % (10-50); Mean Corpuscular HGB Conc 31.9 g/dL (31.8-35.4); Mean Corpuscular Hemoglobin 28.2 pg (27.0-31.2); Mean Corpuscular Volume 88.2 fl (81-99); Mean Platelet Volume 7.7 fl (7.4-10.4); Monocytes # 0.7 K/mm3 (0.1-1.0); Monocytes % 6.5 % (1.7-9.3); Neutrophils # 8.4 K/mm3 (1.8-7.8); Neutrophils % 80.7 % (37.0-80.0); Platelet Count 258 K/mm3 (142-424); Red Blood Count 3.93 M/mm3 (4.20-5.40); Red Cell Distribution Width 15.9 % (11.5-17.5); White Blood Count 10.5 K/mm3 (4.8-10.8)
[2018-07-31 04:56] LABS: Hemoglobin 11.1 g/dL (12.2-16.2)
[2018-07-31 05:06] LABS: Anion Gap 17.7 mEq/L (5-15); Calcium 8.3 mg/dL (8.5-10.1); Potassium 5.7 mmoL/L (3.5-5.1)
--- NOTE | 2018-07-31 10:46 | Progress Note ---
Internal Medicine - PN: Subj *Date: 07/31/18 *Time: 08:00 Interval history: pt doing ok this am - s/p blood transfusion - will treat got etoh use and also has pos u/a Exam Vital signs and Labs for Last 24 Hours: Temp Pulse Resp BP Pulse Ox 97.3 F L 87 13 153/83 H 97 07/31/18 08:00 07/31/18 08:00 07/31/18 08:00 07/31/18 08:00 07/31/18 08:00 Laboratory Results - last 24 hr 07/30/18 11:35: WBC 15.2 H, RBC 3.49 L, Hgb 9.8 L, Hct 31.6 L, MCV 90.7, MCH 28.1, MCHC 30.9 L, RDW 15.0, Plt Count 435 H, MPV 7.7, Neut % (Auto) 86.9 H, Lymph % (Auto) 8.6 L, [place] % (Auto) 4.1, Eos % (Auto) 0.2, Baso % (Auto) 0.2, Neut # (Auto) 13.2 H, Lymph # (Auto) 1.3, [place] # (Auto) 0.6, Eos # (Auto) 0.0, Baso # (Auto) 0.0, Total Counted 100, Neutrophils % (Manual) 93 H, Lymphocytes % (Manual) 5 L, Monocytes % (Manual) 2, Platelet Estimate Slight increase, RBC Morphology Normal 07/30/18 11:35: Sodium 133 L, Potassium 4.9, Chloride 101, Carbon Dioxide 23, Anion Gap 13.9, BUN 21 H, Creatinine 0.98, Estimated Creat Clear 33, Estimated GFR 55 L, Est GFR ( Amer) 66, Glucose 153 H, Calcium 9.0, Total Bilirubin 0.3, AST 14 L, ALT 15, Alkaline Phosphatase 127 H, Troponin I 0.02, Total Protein 6.4, Albumin 3.3 L, Globulin 3.1, Albumin/Globulin Ratio 1.1 07/30/18 11:35: PT 10.1, INR 0.98, APTT 23.5 L 07/30/18 11:35: Plasma/Serum Alcohol 0 07/30/18 13:35: Blood Type B Negative, Antibody Screen Negative, Crossmatch (AHG) See Detail 07/30/18 13:50: Urine Color Yellow, Urine Appearance Clear, Urine pH 5.5, Ur Specific [place] 1.025, Urine Protein Negative, Urine Glucose (UA) Negative, Urine Ketones Negative, Urine Blood Negative, Urine Nitrate Positive, Urine Bilirubin Negative, Urine Urobilinogen 0.2, Ur Leukocyte Esterase Negative, Urine Bacteria 3+ A 07/30/18 14:17: Blood Type Confirm B Negative 07/30/18 18:56: Hgb 6.8 L* D, Hct 22.4 L* 07/31/18 04:30: WBC 10.5 D, RBC 3.93 L, Hgb 11.1 L D, Hct 34.7 L, MCV 88.2, MCH 28.2, MCHC 31.9, RDW 15.9, Plt Count 258 D, MPV 7.7, Neut % (Auto) 80.7 H, Lymph % (Auto) 12.3, [place] % (Auto) 6.5, Eos % (Auto) 0.2, Baso % (Auto) 0.3, Neut # (Auto) 8.4 H, Lymph # (Auto) 1.3, [place] # (Auto) 0.7, Eos # (Auto) 0.0, Baso # (Auto) 0.0 07/31/18 04:30: Sodium 135 L, Potassium 5.7 H, Chloride 103, Carbon Dioxide 20 L , Anion Gap 17.7 H, BUN 28 H D, Creatinine 1.43 H D, Estimated Creat Clear 22, Estimated GFR 35 L, Est GFR ( Amer) 43 L D, Glucose 126 H, Calcium 8.3 L I & O for Last 24 hours: Intake & Output 07/28/18 07/29/18 07/30/18 07/31/18 11:59 11:59 11:59 11:59 Intake Total 1572 / 1572 Output Total 150 / 150 Balance 1422 / 1422 Weight 100 lb 91 lb 8 oz Microbiology Reports for the Last 24 Hours: Microbiology 07/30/18 13:50 Urine,[place] Urine Culture - Preliminary Gram Positive Cocci - Constitutional thin - *Routine HEENT Exam Head: Present: normocephalic Eye: Present: EOMI, PERRL ENT: Present: mucous membranes dry - *Routine Neck Exam Absent: JVD - *Routine Respiratory Exam Present: decreased breath sounds - *Routine Cardiovascular Exam Present: RRR, murmur, S4 - *Routine Abdominal Exam Present: soft - *Routine Extremities Exam Absent: calf tenderness - *Routine Skin Exam Present: intact - *Routine Neurological Exam Present: alert, CN II-XII intact. Absent: motor deficit, altered mental status - Routine Psychiatric Exam Present: anxious. Absent: good insight, good judgment Assessment and Plan (1) Hip fracture, intertrochanteric Current visit: Yes Status: Acute Qualifiers: Encounter type: initial encounter Fracture type: closed Fracture alignment: displaced Laterality: left Qualified Code(s): S72.142A - Displaced intertrochanteric fracture of left femur, initial encounter for closed fracture Category: Medical Code(s): S72.143A - Displaced intertrochanteric fracture of unspecified femur, initial encounter for closed fracture (2) HHD (hypertensive heart disease) Current visit: Yes Status: Acute Category: Medical Code(s): I11.9 - Hypert ensive heart disease without heart failure (3) Alcohol use disorder Current visit: Yes Status: Acute Category: Medical (4) Anemia Current visit: Yes Status: Acute Qualifiers: Anemia type: unspecified type Qualified Code(s): D64.9 - Anemia, unspecified Category: Medical Code(s): D64.9 - Anemia, unspecified (5) Tobacco use Current visit: Yes Status: Acute Category: Medical Code(s): Z72.0 - Tobacco use (6) UTI (urinary tract infection) Current visit: Yes Status: Acute Category: Medical Code(s): N39.0 - Urinary tract infection, site not specified (7) Closed fracture of single pubic ramus of pelvis Current visit: Yes Status: Acute Qualifiers: Encounter type: initial encounter Laterality: right Qualified Code(s): S32.591A - Other specified fracture of right pubis, initial encounter for closed fracture Category: Medical Code(s): S32.509A - Unspecified fracture of unspecified pubis, initial encounter for closed fracture (8) Low body mass index (BMI) Current visit: Yes Status: Acute Category: Medical (9) History of rib fracture Current visit: Yes Status: Acute Category: Medical Code(s): Z87.81 - Personal history of (healed) traumatic fracture (10) H/O kyphoplasty Current visit: Yes Status: Acute Category: Surgical Code(s): Z98.890 - Other specified postprocedural states
--- NOTE | 2018-07-31 10:58 | Progress Note ---
Subjective Date: 07/31/18 Time: 10:00 Principal diagnosis: L intertrochanteric femur fx Interval history: The patient's hemoglobin decreased post-operatively from 9.8 to 6.8, rosalva to 11.1 this morning after 2 units PRBC. Blood pressure was low in PACU but after arriving to the floor it returned to normal and has actually been elevated since. Her potassium and creatinine are both elevated; she is being hydrated with IVF and received kayexelate. U/A concerning for UTI; culture positive for GPC. Banana bag running, CIWA protcol started. Pain in the left hip is present but receiving both percocet and dilaudid. PN: Obj Ex Vital signs: Temp Pulse Resp BP Pulse Ox 97.3 F L 87 13 153/83 H 97 07/31/18 08:00 07/31/18 08:00 07/31/18 08:00 07/31/18 08:00 07/31/18 08:00 - Constitutional no acute distress, thin - Routine HEENT Exam Head: Present: normocephalic, atraumatic Eye: Present: EOMI - Routine Extremities Exam Comments: LLE lateral thigh/hip dressings c/d/i, no strikethrough Mild periwound tenderness, no erythema, no fluctuance or drainage +DF/PF/EHL LLE LLE calf soft, non-tender palpable pedal pulses LLE, foot warm SILT distally LLE in all distributions patient wants to lie with L hip/knee flexed; able to fully extend without much pain - Urinary Catheter Management [place] Cath placed during this visit: yes, but has since been removed by the nurse Urethral indwelling: No Insertion date: 07/30/18 Insertion time: 15:40 Removal date: 07/31/18 Progress Note: A&P (1) Hip fracture, intertrochanteric Status: Acute Current Visit: Yes (2) HHD (hypertensive heart disease) Status: Acute Current Visit: Yes (3) Alcohol use disorder Status: Acute Current Visit: Yes (4) Anemia Status: Acute Current Visit: Yes (5) Tobacco use Status: Acute Current Visit: Yes (6) UTI (urinary tract infection) Status: Acute Current Visit: Yes (7) Closed fracture of single pubic ramus of pelvis Status: Acute Current Visit: Yes (8) Low body mass index (BMI) Status: Acute Current Visit: Yes Assessment and Plan for All Diagnoses:: 77yo F POD 1 s/p IMN L femur (dx: IT fx) = short gamma nail; patient also has a non-displaced fracture of the R inferior pubic ramus -- R pubic ramus fracture does not require surgical intervention; WBAT RLE -- L hip: will change dressing POD 3, no current drainage -- WBAT LLE, OOB with PT/OT -- continue pain control with current medication regimen -- encourage IS, continue SCD RLE -- anemia is likely a result of both hemdilution from IVF and bleeding at the fracture site; blood loss during surgery was low (75cc) -- medical management per Dr. Oconnor: CIWA protocol already in effect, nicotine patch ordered; anti-hypertensives being given -- wilkes removed this morning, patient on cefazolin for surgical prophylaxis, and this may also help cover the GPC UTI. oral levaquin also ordered, which she may be d/c'd on. -- hygiene ordered, patient's nephew to clean her dentures before they are r eplaced. -- dispo planning: [facility] working [place] placement [place]
--- NOTE | 2018-07-31 12:29 | Pharmacy Consult Notes ---
[facility] Pharmacy VTE Monitoring - Patient Demographics Admission date: 07/30/18 Report Date: 07/31/18 Time: 12:29 Allergies/Adverse Reactions: Patient Allergies tetanus immune globulin Allergy (Verified 07/30/18 14:51) Height: 1.63 m Weight: 41.504 kg Patient Problems: Current Active Problems Hip fracture, intertrochanteric (Acute) Closed fracture of single pubic ramus of pelvis (Acute) Low body mass index (BMI) (Acute) History of rib fracture (Acute) H/O kyphoplasty (Acute) Anemia (Acute) Tobacco use (Acute) Alcohol use disorder (Acute) HHD (hypertensive heart disease) (Acute) UTI (urinary tract infection) (Acute) - VTE Risk Labs: VTE Related Lab Results Hgb 11.1 g/dL (12.2-16.2) L D 07/31/18 04:30 Hct 34.7 % (37.0-47.0) L 07/31/18 04:30 Plt Count 258 K/mm3 (142-424) D 07/31/18 04:30 PT 10.1 seconds (9.4-11.8) 07/30/18 11:35 INR 0.98 (0.9-1.1) 07/30/18 11:35 APTT 23.5 seconds (23.6-34.0) L 07/30/18 11:35 BUN 28 mg/dL (7-18) H D 07/31/18 04:30 Creatinine 1.43 mg/dL (0.55-1.02) H D 07/31/18 04:30 Estimated Creat Clear 22 mL/min (50-200) 07/31/18 04:30 - Prophylaxis VTE Prophylaxis Ordered?: Yes Types of VTE Prophylaxis: IPCS Thigh High Location of Applied Device: Right Leg
[2018-07-31 21:25] LABS: Anion Gap 13.1 mEq/L (5-15); Calcium 8.3 mg/dL (8.5-10.1); Potassium 5.1 mmoL/L (3.5-5.1)
[2018-08-01 09:41] LABS: Basophils % 0.3 % (0.1-2.0); Eosinophils # 0.1 K/mm3 (0.0-0.4); Eosinophils % 0.8 % (0.1-12.0); Hematocrit 32.1 % (37.0-47.0); Lymphocytes # 0.8 K/mm3 (0.7-4.5); Lymphocytes % 10.1 % (10-50); Mean Corpuscular Hemoglobin 27.7 pg (27.0-31.2); Mean Corpuscular Volume 89.2 fl (81-99); Mean Platelet Volume 7.4 fl (7.4-10.4); Monocytes # 0.5 K/mm3 (0.1-1.0); Monocytes % 5.8 % (1.7-9.3); Neutrophils % 83.1 % (37.0-80.0); Platelet Count 231 K/mm3 (142-424); White Blood Count 8.4 K/mm3 (4.8-10.8)
[2018-08-01 09:45] LABS: Anion Gap 11.9 mEq/L (5-15); Calcium 8.5 mg/dL (8.5-10.1); Potassium 3.9 mmoL/L (3.5-5.1)
--- NOTE | 2018-08-01 10:02 | Progress Note ---
Internal Medicine - PN: Subj *Date: 08/01/18 *Time: 10:00 Interval history: doing better in chair - will add roch for iv gram neg Exam Vital signs and Labs for Last 24 Hours: Temp Pulse Resp BP Pulse Ox 99.3 F 89 19 143/74 H 98 08/01/18 08:00 08/01/18 08:00 08/01/18 08:00 08/01/18 08:00 08/01/18 08:00 Laboratory Results - last 24 hr 07/31/18 21:05: Sodium 134 L, Potassium 5.1, Chloride 101, Carbon Dioxide 25 D, Anion Gap 13.1, BUN 27 H, Creatinine 1.34 H, Estimated Creat Clear 22, Estimated GFR 38 L, Est GFR ( Amer) 46 L, Glucose 114 H, Calcium 8.3 L 08/01/18 09:29: WBC 8.4, RBC 3.60 L, Hgb 10.0 L, Hct 32.1 L, MCV 89.2, MCH 27.7, MCHC 31.0 L, RDW 16.0, Plt Count 231, MPV 7.4, Neut % (Auto) 83.1 H, Lymph % (Auto) 10.1, [place] % (Auto) 5.8, Eos % (Auto) 0.8, Baso % (Auto) 0.3, Neut # (Auto) 7.0, Lymph # (Auto) 0.8, [place] # (Auto) 0.5, Eos # (Auto) 0.1, Baso # (Auto) 0.0 08/01/18 09:29: Sodium 135 L, Potassium 3.9 D, Chloride 100, Carbon Dioxide 27, Anion Gap 11.9, BUN 23 H, Creatinine 1.05 H D, Estimated Creat Clear 28, Estimated GFR 51 L, Est GFR ( Amer) 61 D, Glucose 105, Calcium 8.5 I & O for Last 24 hours: Intake & Output 07/29/18 07/30/18 07/31/18 08/01/18 11:59 11:59 11:59 11:59 Intake Total 1572 / 1572 1490 / 1490 Output Total 150 / 150 175 / 175 Balance 1422 / 1422 1315 / 1315 Weight 100 lb 91 lb 8 oz 91 lb 4 oz Microbiology Reports for the Last 24 Hours: Microbiology 07/30/18 13:50 Urine,[place] Urine Culture - Preliminary Gram Negative Rods - Constitutional no acute distress, thin - *Routine HEENT Exam Head: Present: normocephalic Eye: Present: EOMI, PERRL ENT: Present: mucous membranes dry - *Routine Neck Exam Present: supple - *Routine Respiratory Exam Present: CTA bilaterally - *Routine Cardiovascular Exam Present: RRR, murmur - *Routine Abdominal Exam Present: soft - *Routine Extremities Exam Absent: Stacie's sign - *Routine Skin Exam Present: intact - *Routine Neurological Exam Present: alert, CN II-XII intact - Routine Psychiatric Exam Present: normal affect Assessment and Plan (1) Hip fracture, intertrochanteric Current visit: Yes Status: Acute Qualifiers: Encounter type: initial encounter Fracture type: closed Fracture alignment: displaced Laterality: left Qualified Code(s): S72.142A - Displaced intertrochanteric fracture of left femur, initial encounter for closed fracture Category: Medical Code(s): S72.143A - Displaced intertrochanteric fracture of unspecified femur, initial encounter for closed fracture (2) HHD (hypertensive heart disease) Current visit: Yes Status: Acute Category: Medical Code(s): I11.9 - Hypertensive heart disease without heart failure (3) Alcohol use disorder Current visit: Yes Status: Acute Category: Medical (4) Anemia Current visit: Yes Status: Acute Qualifiers: Anemia type: unspecified type Qualified Code(s): D64.9 - Anemia, unspe cified Category: Medical Code(s): D64.9 - Anemia, unspecified (5) Tobacco use Current visit: Yes Status: Acute Category: Medical Code(s): Z72.0 - Tobacco use (6) UTI (urinary tract infection) Current visit: Yes Status: Acute Category: Medical Code(s): N39.0 - Urinary tract infection, site not specified (7) Closed fracture of single pubic ramus of pelvis Current visit: Yes Status: Acute Qualifiers: Encounter type: initial encounter Laterality: right Qualified Code(s): S32.591A - Other specified fracture of right pubis, initial encounter for closed fracture Category: Medical Code(s): S32.509A - Unspecified fracture of unspecified pubis, initial encounter for closed fracture (8) Low body mass index (BMI) Current visit: Yes Status: Acute Category: Medical
--- NOTE | 2018-08-01 10:49 | Progress Note ---
Subjective Date: 08/01/18 Time: 10:00 Principal diagnosis: L intertrochanteric femur fx Interval history: The patient is doing well this morning. She is having little pain, has been out of bed and took a few steps with both PT and her nurse. She has no complaints this morning. PN: Obj Ex Vital signs: Temp Pulse Resp BP Pulse Ox 99.3 F 89 19 143/74 H 98 08/01/18 08:00 08/01/18 08:00 08/01/18 08:00 08/01/18 08:00 08/01/18 08:00 - Routine Extremities Exam Comments: resting comfortably in bedside chair, curled up onto right side with RLE flexed under her and LLE straightened out dressings L hip/thigh c/d/i, no strikethrough or drainage SILT distally LLE in all distributions LLE calf soft, non-tender +DF/PF/EHL LLE - Urinary Catheter Management Peter Cath placed during this visit: yes, but has since been removed by the nurse Urethral indwelling: No Insertion date: 07/30/18 Insertion time: 15:40 Removal date: 07/31/18 Progress Note: A&P (1) Hip fracture, intertrochanteric Status: Acute Current Visit: Yes (2) HHD (hypertensive heart disease) Status: Acute Current Visit: Yes (3) Alcohol use disorder Status: Acute Current Visit: Yes (4) Anemia Status: Acute Current Visit: Yes (5) Tobacco use Status: Acute Current Visit: Yes (6) UTI (urinary tract infection) Status: Acute Current Visit: Yes (7) Closed fracture of single pubic ramus of pelvis Status: Acute Current Visit: Yes (8) Low body mass index (BMI) Status: Acute Current Visit: Yes Assessment and Plan for All Diagnoses:: 77yo F POD 2 s/p IMN L femur for IT fx + non-displaced R inferior pubic ramus fx -- will change dressings tomorrow -- continue PT/OT, WBAT BLE with walker -- UTI: urine culture has changed overnight from GPC to GNR; Dr. Oconnor changed antibiotics to Rocephin -- K, Cr improving -- Hgb within acceptable limits -- continue IS, SCD, pain control -- starting ASA 81 for DVT prophy -- dispo planning: to [place] for rehab, patient would prefer [facility]
[2018-08-02 06:32] LABS: Basophils % 0.4 % (0.1-2.0); Eosinophils # 0.3 K/mm3 (0.0-0.4); Eosinophils % 3.4 % (0.1-12.0); Hematocrit 31.4 % (37.0-47.0); Hemoglobin 9.8 g/dL (12.2-16.2); Lymphocytes # 0.8 K/mm3 (0.7-4.5); Lymphocytes % 10.3 % (10-50); Mean Corpuscular HGB Conc 31.2 g/dL (31.8-35.4); Mean Corpuscular Hemoglobin 27.8 pg (27.0-31.2); Mean Corpuscular Volume 89.1 fl (81-99); Mean Platelet Volume 10.1 fl (7.4-10.4); Monocytes # 0.6 K/mm3 (0.1-1.0); Monocytes % 7.2 % (1.7-9.3); Neutrophils % 78.7 % (37.0-80.0); Platelet Count 199 K/mm3 (142-424); Red Blood Count 3.52 M/mm3 (4.20-5.40); Red Cell Distribution Width 15.9 % (11.5-17.5); White Blood Count 7.6 K/mm3 (4.8-10.8)
[2018-08-02 06:52] LABS: Anion Gap 13.9 mEq/L (5-15); Potassium 3.9 mmoL/L (3.5-5.1)
--- NOTE | 2018-08-02 12:44 | Progress Note ---
Internal Medicine - PN: Subj *Date: 08/02/18 *Time: 09:00 Interval history: doing better - no specific c/o - e . coli uti Exam Vital signs and Labs for Last 24 Hours: Temp Pulse Resp BP Pulse Ox 98.9 F 90 16 149/57 H 99 08/02/18 08:00 08/02/18 08:40 08/02/18 08:00 08/02/18 08:00 08/02/18 08:40 Laboratory Results - last 24 hr 08/02/18 05:49: WBC 7.6, RBC 3.52 L, Hgb 9.8 L, Hct 31.4 L, MCV 89.1, MCH 27.8, MCHC 31.2 L, RDW 15.9, Plt Count 199, MPV 10.1, Neut % (Auto) 78.7, Lymph % (Auto) 10.3, [place] % (Auto) 7.2, Eos % (Auto) 3.4, Baso % (Auto) 0.4, Neut # (Auto) 6.0, Lymph # (Auto) 0.8, [place] # (Auto) 0.6, Eos # (Auto) 0.3, Baso # (Auto) 0.0 08/02/18 05:49: Sodium 135 L, Potassium 3.9, Chloride 101, Carbon Dioxide 24, Anion Gap 13.9, BUN 26 H, Creatinine 0.88, Estimated Creat Clear 31, Estimated GFR 62, Est GFR ( Amer) 75 D, Glucose 91, Calcium 8.0 L I & O for Last 24 hours: Intake & Output 07/31/18 08/01/18 08/02/18 08/03/18 11:59 11:59 11:59 11:59 Intake Total 1572 / 1572 1490 / 1490 1010 / 1010 Output Total 150 / 150 175 / 175 300 / 300 Balance 1422 / 1422 1315 / 1315 710 / 710 Weight 91 lb 8 oz 91 lb 4 oz 95 lb 4 oz Microbiology Reports for the Last 24 Hours: Microbiology 07/30/18 13:50 Urine,[place] Urine Culture - Final Escherichia coli - Constitutional no acute distress, thin - *Routine HEENT Exam Head: Present: normocephalic Eye: Present: EOMI, PERRL ENT: Present: mucous membranes dry - *Routine Neck Exam Present: supple - *Routine Respiratory Exam Present: decreased breath sounds - *Routine Cardiovascular Exam Present: RRR, murmur, S4 - *Routine Abdominal Exam Present: soft - *Routine Extremities Exam Absent: edema - *Routine Skin Exam Present: intact - *Routine Neurological Exam Present: alert, CN II-XII intact - Routine Psychiatric Exam Present: unable to assess Assessment and Plan (1) Hip fracture, intertrochanteric Current visit: Yes Status: Acute Qualifiers: Encounter type: initial encounter Fracture type: closed Fracture alignment: displaced Laterality: left Qualified Code(s): S72.142A - Displaced intertrochanteric fracture of left femur, initial encounter for closed fracture Category: Medical Code(s): S72.143A - Displaced intertrochanteric fracture of unspecified femur, initial encounter for closed fracture (2) HHD (hypertensive heart disease) Current visit: Yes Status: Acute Category: Medical Code(s): I11.9 - Hypertensive heart disease without heart failure (3) Alcohol use disorder Current visit: Yes Status: Acute Category: Medical (4) Anemia Current visit: Yes Status: Acute Qualifiers: Anemia type: unspecified type Qualified Code(s): D64.9 - Anemia, unspecified Category: Medical Code(s): D64.9 - Anemia, unspecified (5) Tobacco use Current visit: Yes Status: Acute Category: Medical Code(s): Z72.0 - Tobacco use (6) UTI (urinary tract infection) Current visit: Yes Status: Acute Category: Medical Code(s): N39.0 - Urinary tract infection, site not specified (7) Closed fracture of single pubic ramus of pelvis Current visit: Yes Status: Acute Qualifiers: Encounter type: initial encounter Laterality: right Qualified Code(s): S32.591A - Other specified fracture of right pubis, initial encounter for closed fracture Category: Medical Code(s): S32.509A - Unspecified fracture of unspecified pubis, initial encounter for closed fracture (8) Low body mass index (BMI) Current visit: Yes Status: Acute Category: Medical (9) Escherichia coli urinary tract infection Current visit: Yes Status: Acute Category: Medical Code(s): N39.0 - Urinary tract infection, site not specified; B96.20 - Unspecified Escherichia coli [E. coli] as the cause of diseases classified elsewhere
--- NOTE | 2018-08-03 08:35 | Discharge Summary ---
General - General Admission date:: 07/30/18 Discharge date: 08/03/18 HPI HPI: pt with fall this am and was lying for a few hrs - she reports trip type injury with no loc - she has hip pain and brought by em[facility] to [facility]- she was found to have hip fx and pelvis fx -she has hx of breat cancer in past and tob and etoh use - ed per squad pt poor historian. pt states fell either lastnight or this am c/o lt hip pain unsure if she has any other pain unsure if any LOC. pt states she was unable to get off the floor after fall. cpta none fell allegedly last night, cat jumped on her. may have been on floor all Hospital Course Hospital Course: See ortho note. We will transfer to [facility] today 77yo F POD 2 s/p IMN L femur for IT fx + non-displaced R inferior pubic ramus fx -- will change dressings tomorrow -- continue PT/OT, WBAT BLE with walker -- UTI: urine culture has changed overnight from GPC to GNR; Dr. Oconnor changed antibiotics to Rocephin -- K, Cr improving -- Hgb within acceptable limits -- continue IS, SCD, pain control -- starting ASA 81 for DVT prophy -- dispo planning: to [place] for rehab, patient would prefer [facility]- uti discharge on Keflex 500mg po twice a day for 10 days Objective Vital signs: Temp Pulse Resp BP Pulse Ox 98.5 F 74 19 117/50 L 98 08/03/18 08:00 08/03/18 08:00 08/03/18 08:00 08/03/18 08:00 08/03/18 08:00 no acute distress - *Routine HEENT Exam Head: Present: normocephalic Eye: Present: PERRL ENT: Present: mucous membranes moist - *Routine Respiratory Exam Present: CTA bilaterally - *Routine Cardiovascular Exam Present: murmur - *Routine Abdominal Exam Present: soft, normoactive bowel sounds - *Routine Extremities Exam Present: normal capillary refill Comments: Dressing to left hip clean dry and intact - *Routine Skin Exam Comments: Dressing to left hip clean dry and intact - *Routine Neurological Exam Present: alert, oriented X3 - Routine Psychiatric Exam Present: normal affect, normal thought process Results - Additional Comments Rounded with Dr. Oconnor all orders per Elvin DS: Diagnosis - Discharge Diagnosis (1) Hip fracture, intertrochanteric Status: Acute (2) HHD (hypertensive heart disease) Status: Acute (3) Alcohol use disorder Status: Acute (4) Anemia Status: Acute (5) Tobacco use Status: Acute (6) UTI (urinary tract infection) Status: Acute (7) Closed fracture of single pubic ramus of pelvis Status: Acute (8) Low body mass index (BMI) Status: Acute (9) Escherichia coli urinary tract infection Status: Acute (10) Protein calorie malnutrition Status: Acute Discharge Plan - Patient Discharge Instructions ACTIVITY: Continue current activity DIET: continue same diet Patient Instructions: DI for Pelvic Fracture, DI for Hip Fracture, DI for Urinary Tract Infection (UTI), DI for Surgical Site Infection - Follow up Plan Follow up with: Chalino Oconnor MD [Primary Care Provider] - Disposition: [facility] Home Medications: Home Medications Medication Instructions Recorded Confirmed Type Amlodipine Besylate [Norvasc 5mg 5 mg PO DAILY 07/30/18 07/30/18 History tablet] Aspirin [Aspirin 81mg EC Tab] 81 mg PO DAILY 30 Days #30 08/03/18 Rx tablet. Metoprolol Tartrate [Lopressor 12.5 mg PO BID 30 Days #60 tab 08/03/18 Rx 25mg tablet] cephALEXin [Keflex 500mg Cap] 500 mg PO BID 10 Days #20 cap 08/03/18 Rx Prescriptions/Medication Reconciliation: New Folic Acid [Folic Acid 1mg tablet] 1 mg PO DAILY tablet cephALEXin [Keflex 500mg Cap] 500 mg PO BID 10 Days #20 cap Metoprolol Tartrate [Lopressor 25mg tablet] 12.5 mg PO BID 30 Days #60 tab Aspirin [Aspirin 81mg EC Tab] 81 mg PO DAILY 30 Days #30 tablet. Discontinued Amlodipine Besylate [Norvasc 5mg tablet] 5 mg PO DAILY
--- NOTE | 2018-08-04 12:35 | Progress Note ---
Subjective Date: 08/03/18 Time: 12:00 Principal diagnosis: L intertrochanteric femur fx Interval history: The patient is doing well, pain controlled with meds. Working with PT, no complaints today. PN: Obj Ex Vital signs: Temp Pulse Resp BP Pulse Ox 98.5 F 74 19 117/50 L 98 08/03/18 08:00 08/03/18 08:00 08/03/18 08:00 08/03/18 08:00 08/03/18 08:00 - Constitutional Comments: AAOx3, NAD L hip dressings changed, incisions c/d/i with no drainage or charles-wound erythema/ecchymosis, minimally tender LLE NVI with SILT distally and +DF/PF/EHL LLE calf soft, non-tender palpable pedal pulses LLE, foot warm/well-perfused - Urinary Catheter Management Peter Cath placed during this visit: yes, but has since been removed by the nurse Urethral indwelling: No Insertion date: 07/30/18 Insertion time: 15:40 Removal date: 07/31/18 Progress Note: A&P (1) Hip fracture, intertrochanteric Status: Acute (2) HHD (hypertensive heart disease) Status: Acute (3) Alcohol use disorder Status: Acute (4) Anemia Status: Acute (5) Tobacco use Status: Acute (6) UTI (urinary tract infection) Status: Acute (7) Closed fracture of single pubic ramus of pelvis Status: Acute (8) Low body mass index (BMI) Status: Acute (9) Escherichia coli urinary tract infection Status: Acute (10) Protein calorie malnutrition Status: Acute Assessment and Plan for All Diagnoses:: 77yo F POD 4 s/p IMN L femur for IT fx + non-displaced R pubic ramus fx -- continue WBAT, continue PT/OT -- change dressings PRN, at least QOD -- ok to d/c to [facility] from [facility]o standpoint -- f/u with me in office as scheduled
== END 2018-08-03 11:57 | DRG 956 ==
LOC: ER 11:11 → 2ND 13:24
PROVIDERS: ADMIT Emergency Medicine; ATTEND Emergency Medicine
CPT/HCPCS: 36415; 71010; 71045; 72040; 73502; 73552; 76000; 80048; 80053; 81001; 84484; 85007; 85014; 85018; 85025; 85610; 85730; 86850; 87040; 87086; 87088; 87186; 93005; 93306; 96374; 96375; 97110; 97162; 97530; 99285; C1713; C1769; J2405; P9016

== ENCOUNTER → 2018-08-18 12:57 | Outpatient (CLI) | payer MEDICARE, BC, SELFPAY ==
--- NOTE | 2018-08-18 13:07 | XR_ITS ---
XR femur LT 2V CLINICAL INDICATION: Follow-up fracture/ORIF ITS.REASON: sp short gamma nail ORDERING PHYSICIAN: Chalino Oconnor MD PATIENT AGE: 77 years Comparison: [id number] FINDINGS: Gamma nail with short intramedullary yung once again noted stabilizing the comminuted intertrochanteric fracture of the left hip. There is displacement of the lesser trochanter medially at or. The main fracture fragments are in good alignment. No obvious orthopedic complication. The distal shaft of the femur shows no acute finding. Fibroid involvement of the uterus once again noted IMPRESSION: Overall no change in alignment status post ORIF intertrochanteric fracture left femur
== END ==
PROVIDERS: PCP Emergency Medicine; Visit Provider Emergency Medicine
DX: Z48.89 Encounter for other specified surgical aftercare (principal)
CPT/HCPCS: 73552

== ENCOUNTER → 2018-09-09 12:20 | Outpatient (CLI) | payer MEDICARE, BC, SELFPAY ==
--- NOTE | 2018-09-09 12:24 | XR_ITS ---
XR hip LT 2-3V w/pelvis Ordering Physician: Elana Lott MD Patient Age: 78 years: Female HISTORY: ITS.REASON: sp SHORT GAMMA NAIL dos 07/30/18 Left hip fracture ORIF TECHNIQUE: AP and crosstable lateral view left hip FINDINGS comparison is made to 08/03/2018 left hip postop left hip study. Skin nory and been removed in the interval. We again ORIF intertrochanteric fracture left hip.- With gamma nail and short intramedullary yung in place. Good position no fracture and fixation elements.. As the fracture has seated to the gamma nail now has slid through the medullary yung very slightly, with this there again malleolus slightly very slightly more prominent were extends lateral to the proximal femur.. Mild sclerosis now seen at the trochanteric fracture due to this as well as early healing. Again the generous lesser trochanter fracture] displaced medially noted and stable. Mild diffuse demineralization Popcorn-like calcification areas lower pelvis reflect the generous calcified uterine fibroids and appears similar to studies dating back to March 2017 . Suggestion/question subtle stable fracture involving the inferior ramus on right. Unchanged IMPRESSION: ORIF left intertrochanteric fracture
== END ==
PROVIDERS: PCP Emergency Medicine; Visit Provider Orthopaedic Surgery
DX: Z48.89 Encounter for other specified surgical aftercare; S72.002A Fracture of unspecified part of neck of left femur, initial encounter for closed fracture
CPT/HCPCS: 73502

== ENCOUNTER → 2018-10-13 12:55 | Outpatient (CLI) | payer MEDICARE, BC, SELFPAY ==
--- NOTE | 2018-10-13 13:01 | XR_ITS ---
XR hip LT 2-3V w/pelvis HISTORY: Follow-up ORIF left hip ITS.REASON: sp short gamma nail ORDERING PHYSICIAN: Elana Lott MD PATIENT AGE: 78 years COMPARISON: 09/09/2018 FINDINGS: Status post ORIF left hip with a gamma nail and short intramedullary right stabilizing the intertrochanteric fracture with displaced lesser trochanter. There is good alignment of the fracture fragments with mild impaction as 4. Fracture line show some sclerosis on the crosstable view. Incidental note made of fibroid calcification of the uterus. IMPRESSION: Good alignment of the main intertrochanteric fracture fragments status post ORIF
== END ==
PROVIDERS: PCP Emergency Medicine; Visit Provider Orthopaedic Surgery
DX: S72.009A Fracture of unspecified part of neck of unspecified femur, initial encounter for closed fracture (principal)
CPT/HCPCS: 73502

== ENCOUNTER → 2018-11-11 11:19 | Outpatient (CLI) | payer MEDICARE, BC, SELFPAY ==
--- NOTE | 2018-11-11 11:27 | XR_ITS ---
XR hip LT 2-3V w/pelvis HISTORY: Follow-up ORIF, fracture, pain ITS.REASON: sp short gamma nail ORDERING PHYSICIAN: Elana Lott MD PATIENT AGE: 78 years COMPARISON: 10/13/2018 FINDINGS: Gamma nail present with a short intramedullary right stabilizing the intertrochanteric fracture with good alignment. Hypertrophic changes are present along the lesser trochanter region. IMPRESSION: Good alignment status post ORIF left intertrochanteric fracture
--- NOTE | 2018-11-11 11:27 | XR_ITS ---
XR shoulder RT min 2V HISTORY: Pain following injury ITS.REASON: evaluate for possible fracture ORDERING PHYSICIAN: Elana Lott MD PATIENT AGE: 78 years Comparison: None FINDINGS: The glenohumeral joint has an unremarkable appearance. There is a fracture of the junction of the mid-distal third of the clavicle with inferior displacement of the distal clavicular fragment. There is also a nondisplaced fracture involving the right fifth rib laterally. There are surgical clips in right axilla. IMPRESSION: 1. Mildly displaced distal clavicular fracture. 2. Nondisplaced right fifth rib fracture
--- NOTE | 2018-11-11 11:27 | XR_ITS ---
XR hip RT 2-3V w/pelvis HISTORY: ITS.REASON: right hip pain ORDERING PHYSICIAN: Elana Lott MD PATIENT AGE: 78 years COMPARISON: None FINDINGS: No fracture or dislocation. No lytic or blastic change. There is generalized vascular calcification and there is a fibroid calcification within the uterus. IMPRESSION: No acute finding
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
== END ==
PROVIDERS: PCP Emergency Medicine; Visit Provider Orthopaedic Surgery
DX: M25.551 Pain in right hip; M25.511 Pain in right shoulder; S72.002A Fracture of unspecified part of neck of left femur, initial encounter for closed fracture
CPT/HCPCS: 73030; 73502

== ENCOUNTER → 2018-12-03 10:02 | Outpatient (CLI) | payer MEDICARE, BC, SELFPAY ==
--- NOTE | 2018-12-03 10:13 | XR_ITS ---
XR wrist RT min 3V HISTORY follow-up fracture ITS.REASON: 3 views ORDERING PHYSICIAN: Elana Lott MD PATIENT AGE: 78 years Comparison: None FINDINGS: There is a comminuted impacted fracture involving the distal radius with intra-articular extension. There is a dorsal fragment which is displaced dorsally x 7 mm. Nondisplaced fracture is noted involving the base of the ulnar styloid. There is good alignment of the radial fracture IMPRESSION: 1. Mildly impacted distal radial fracture with associated ulnar styloid fracture
--- NOTE | 2018-12-03 10:13 | XR_ITS ---
XR clavicle RT HISTORY: Follow-up fracture ITS.REASON: AP + 30 degree cephalic tilt ORDERING PHYSICIAN: Elana Lott MD PATIENT AGE: 78 years COMPARISON: 11/11/2018 FINDINGS: There is a displaced fracture of the distal clavicle. There is 14 mm inferior displacement of the distal fracture fragment with some mild bayoneting of the fracture fragments. The glenohumeral joint is unremarkable. There are surgical clips in the right axilla. IMPRESSION: Displaced distal clavicle fracture
== END ==
PROVIDERS: Visit Provider Orthopaedic Surgery
DX: S42.009A Fracture of unspecified part of unspecified clavicle, initial encounter for closed fracture (principal); M25.531 Pain in right wrist
CPT/HCPCS: 73000; 73110

== ENCOUNTER 2019-01-08 10:21 | Observation (INO) ==
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
[2019-01-08 12:02] LABS: Basophils % 0.5 % (0.1-2.0); Eosinophils # 0.1 K/mm3 (0.0-0.4); Eosinophils % 1.8 % (0.1-12.0); Hematocrit 44.2 % (37.0-47.0); Hemoglobin 14.1 g/dL (12.2-16.2); Lymphocytes % 12.4 % (10-50); Mean Corpuscular Volume 96.8 fl (81-99); Mean Platelet Volume 7.7 fl (7.4-10.4); Monocytes # 0.5 K/mm3 (0.1-1.0); Monocytes % 6.4 % (1.7-9.3); Neutrophils # 6.1 K/mm3 (1.8-7.8); Neutrophils % 78.8 % (37.0-80.0); Platelet Count 313 K/mm3 (142-424); Red Blood Count 4.57 M/mm3 (4.20-5.40); Red Cell Distribution Width 15.5 % (11.5-17.5); White Blood Count 7.7 K/mm3 (4.8-10.8)
[2019-01-08 12:15] LABS: Anion Gap 17.6 mEq/L (5-15)
[2019-01-09 06:58] LABS: Basophils # 0.1 K/mm3 (0-0.2); Basophils % 0.7 % (0.1-2.0); Eosinophils # 0.3 K/mm3 (0.0-0.4); Eosinophils % 4.5 % (0.1-12.0); Hematocrit 39.2 % (37.0-47.0); Lymphocytes # 1.2 K/mm3 (0.7-4.5); Lymphocytes % 18.8 % (10-50); Mean Corpuscular HGB Conc 31.4 g/dL (31.8-35.4); Mean Corpuscular Volume 96.1 fl (81-99); Mean Platelet Volume 7.7 fl (7.4-10.4); Monocytes # 0.4 K/mm3 (0.1-1.0); Monocytes % 6.6 % (1.7-9.3); Neutrophils # 4.5 K/mm3 (1.8-7.8); Neutrophils % 69.4 % (37.0-80.0); Platelet Count 312 K/mm3 (142-424); Red Blood Count 4.08 M/mm3 (4.20-5.40); Red Cell Distribution Width 15.4 % (11.5-17.5); White Blood Count 6.4 K/mm3 (4.8-10.8)
[2019-01-09 07:02] LABS: Anion Gap 12.4 mEq/L (5-15); Calcium 8.3 mg/dL (8.5-10.1); Hemoglobin 12.3 g/dL (12.2-16.2)
--- NOTE | 2019-01-09 11:37 | Progress Note ---
Internal Medicine - PN: Subj *Date: 01/09/19 *Time: 11:15 Interval history: Patient doing well with no complaints today. She mentions that she is still having some pain on her left fifth digit. She is tolerating diet per dietitian and is requesting crackers. Exam Vital signs and Labs for Last 24 Hours: Temp Pulse Resp BP Pulse Ox 97.9 F 77 20 151/83 H 93 L 01/09/19 08:00 01/09/19 08:00 01/09/19 08:00 01/09/19 08:00 01/09/19 08:00 Laboratory Results - last 24 hr 01/08/19 11:50: WBC 7.7, RBC 4.57, Hgb 14.1, Hct 44.2, MCV 96.8, MCH 31.0, MCHC 32.0, RDW 15.5, Plt Count 313, MPV 7.7, Neut % (Auto) 78.8, Lymph % (Auto) 12.4, Island % (Auto) 6.4, Eos % (Auto) 1.8, Baso % (Auto) 0.5, Neut # (Auto) 6.1, Lymph # (Auto) 1.0, Island # (Auto) 0.5, Eos # (Auto) 0.1, Baso # (Auto) 0.0 01/08/19 11:50: Sodium 128 L, Potassium 4.6, Chloride 95 L, Carbon Dioxide 20 L, Anion Gap 17.6 H, BUN 13, Creatinine 0.74, Estimated Creat Clear 27, Estimated GFR 76, Est GFR ( Amer) 91, Glucose 91, Calcium 9.0, Magnesium 1.8 01/09/19 06:18: WBC 6.4, RBC 4.08 L, Hgb 12.3 D, Hct 39.2, MCV 96.1, MCH 30.2, MCHC 31.4 L, RDW 15.4, Plt Count 312, MPV 7.7, Neut % (Auto) 69.4, Lymph % (Auto) 18.8, Island % (Auto) 6.6, Eos % (Auto) 4.5, Baso % (Auto) 0.7, Neut # (Auto) 4.5, Lymph # (Auto) 1.2, Island # (Auto) 0.4, Eos # (Auto) 0.3, Baso # (Auto) 0.1 01/09/19 06:18: Sodium 131 L, Potassium 4.4, Chloride 99, Carbon Dioxide 24, Anion Gap 12.4, BUN 13, Creatinine 0.71, Estimated Creat Clear 26, Estimated GFR 79, Est GFR ( Amer) 96, Glucose 91, Calcium 8.3 L I & O for Last 24 hours: Intake & Output 01/06/19 01/07/19 01/08/19 01/09/19 11:59 11:59 11:59 11:59 Intake Total 181 / 181 Output Total 350 / 350 Balance 1461 / 1461 Weight 82 lb 9 oz 82 lb 7.246 oz - Constitutional no acute distress, thin, cachectic - *Routine HEENT Exam Head: Present: normocephalic Eye: Present: EOMI, PERRL ENT: Present: mucous membranes moist - *Routine Neck Exam Present: supple. Absent: lymphadenopathy - *Routine Respiratory Exam Present: CTA bilaterally - *Routine Cardiovascular Exam Present: RRR - *Routine Abdominal Exam Present: soft, normoactive bowel sounds. Absent: tenderness - *Routine Extremities Exam Present: cyanosis. Absent: clubbing, edema Comments: left fifth digit notable for cyanosis; unable to move most of her extremities secondary to multiple fractures in the past - *Routine Skin Exam Present: warm. Absent: rash Comments: Stage I pressure ulcer noted on lower back above buttock - *Routine Neurological Exam Present: alert, oriented X3 Assessment and Plan (1) Physical deconditioning Current visit: Yes Status: Acute Category: Medical Code(s): R53.81 - Other malaise (2) Pressure ulcer Current visit: Yes Status: Acute Category: Medical Code(s): L89.90 - Pressure ulcer of unspecified site, unspecified stage (3) Pain in finger of left hand Current visit: Yes Status: Acute Category: Medical Code(s): M79.645 - Pain in left finger(s) (4) HHD (hypertensive heart disease) Current visit: No Status: Chronic Qualifiers: Heart failure presence: without heart failure Qualified Code(s): I11.9 - Hypertensive heart disease without heart failure Category: Medical Code(s): I11.9 - Hypertensive heart disease without heart failure (5) Low body mass index (BMI) Current visit: No Status: Chronic Category: Medical (6) Protein calorie malnutrition Current visit: No Status: Chronic Qualifiers: Protein-calorie malnutrition severity: unspecified severity Qualified Code(s): E46 - Unspecified protein-calorie malnutrition Category: Medical Code(s): E46 - Unspecified protein-calorie malnutrition (7) Wheelchair bound Current visit: Yes Status: Acute Category: Medical Code(s): Z99.3 - Dependence on wheelchair (8) Tobacco use Current visit: No Status: Acute Category: Medical Code(s): Z72.0 - Tobacco use (9) Impaired mobility and ADLs Current visit: Yes Status: Acute Category: Medical Code(s): Z74.09 - Other reduced mobility (10) Status post fracture of femur Current visit: Yes Status: Chronic Category: Medical Code(s): Z87.81 - Personal history of (healed) traumatic fracture - Assessment and plan all Dx Assessment and Plan for all problems:: Will await PT evaluation. Appreciate dietary's input.
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
[2019-01-10 06:47] LABS: Basophils % 0.7 % (0.1-2.0); Eosinophils # 0.2 K/mm3 (0.0-0.4); Eosinophils % 3.5 % (0.1-12.0); Hematocrit 39.5 % (37.0-47.0); Hemoglobin 12.4 g/dL (12.2-16.2); Lymphocytes % 15.1 % (10-50); Mean Corpuscular HGB Conc 31.3 g/dL (31.8-35.4); Mean Corpuscular Volume 97.6 fl (81-99); Mean Platelet Volume 7.5 fl (7.4-10.4); Monocytes # 0.4 K/mm3 (0.1-1.0); Neutrophils # 4.9 K/mm3 (1.8-7.8); Neutrophils % 74.7 % (37.0-80.0); Platelet Count 318 K/mm3 (142-424); Red Blood Count 4.04 M/mm3 (4.20-5.40); Red Cell Distribution Width 15.3 % (11.5-17.5); White Blood Count 6.6 K/mm3 (4.8-10.8)
[2019-01-10 06:53] LABS: Albumin Level 2.7 gm/dL (3.4-5.0); Albumin/Globulin Ratio 0.9 (1.1-1.8); Anion Gap 15.1 mEq/L (5-15); Bilirubin,Total 0.3 mg/dL (0.2-1.0); Calcium 8.1 mg/dL (8.5-10.1); Total Protein,Serum 5.7 gm/dL (6.4-8.2)
--- NOTE | 2019-01-10 08:22 | Progress Note ---
<Evette Sauer - Last Filed: 01/10/19 08:19> Internal Medicine - PN: Subj *Date: 01/10/19 *Time: 08:19 Interval history: States she is doing well. Did sleep last night. She is eating without difficulty. She walks with assistance to the bathroom. She states she is a little short of breath this morning. She denies chest pain. Exam Vital signs and Labs for Last 24 Hours: Temp Pulse Resp BP Pulse Ox 97.8 F 81 20 142/83 H 95 01/10/19 07:44 01/10/19 07:44 01/10/19 07:44 01/10/19 07:44 01/10/19 07:44 Laboratory Results - last 24 hr 01/10/19 06:25: Sodium 133 L, Potassium 4.1, Chloride 99, Carbon Dioxide 23, Anion Gap 15.1 H, BUN 9 D, Creatinine 0.62, Estimated Creat Clear 28, Estimated GFR 93, Est GFR ( Amer) 112, Glucose 92, Calcium 8.1 L, Total Bilirubin 0.3, AST 15, ALT 15, Alkaline Phosphatase 130 H, Total Protein 5.7 L, Albumin 2.7 L, Globulin 3.0, Albumin/Globulin Ratio 0.9 L 01/10/19 06:25: WBC 6.6, RBC 4.04 L, Hgb 12.4, Hct 39.5, MCV 97.6, MCH 30.6, MCHC 31.3 L, RDW 15.3, Plt Count 318, MPV 7.5, Neut % (Auto) 74.7, Lymph % (Auto) 15.1, [place] % (Auto) 6.0, Eos % (Auto) 3.5, Baso % (Auto) 0.7, Neut # (Auto) 4.9, Lymph # (Auto) 1.0, [place] # (Auto) 0.4, Eos # (Auto) 0.2, Baso # (Auto) 0.0 I & O for Last 24 hours: Intake & Output 01/07/19 01/08/19 01/09/19 01/10/19 11:59 11:59 11:59 11:59 Intake Total 1811 / 1811 1269 / 1269 Output Total 350 / 350 Balance 1461 / 1461 1269 / 1269 Weight 82 lb 9 oz 82 lb 7.246 oz 86 lb 8 oz - Constitutional no acute distress Comments: Sitting up in the bed and eating her breakfast. Appears comfortable. - *Routine Respiratory Exam Comments: Occasional wheezing and scattered rhonchi throughout. - *Routine Cardiovascular Exam Present: RRR - *Routine Abdominal Exam Present: soft, normoactive bowel sounds. Absent: tenderness, distended - *Routine Extremities Exam Absent: edema, calf tenderness Assessment and Plan (1) Physical deconditioning Current visit: Yes Status: Acute Category: Medical Code(s): R53.81 - Other malaise (2) Pressure ulcer Current visit: Yes Status: Acute Category: Medical Code(s): L89.90 - Pressure ulcer of unspecified site, unspecified stage (3) Pain in finger of left hand Current visit: Yes Status: Acute Category: Medical Code(s): M79.645 - Pain in left finger(s) (4) HHD (hypertensive heart disease) Current visit: No Status: Chronic Qualifiers: Heart failure presence: without heart failure Qualified Code(s): I11.9 - Hypertensive heart disease without heart failure Category: Medical Code(s): I11.9 - Hypertensive heart disease without heart failure (5) Low body mass index (BMI) Current visit: No Status: Chronic Category: Medical (6) Protein calorie malnutrition Current visit: No Status: Chronic Qualifiers: Protein-calorie malnutrition severity: unspecified severity Qualified Code(s): E46 - Unspecified protein-calorie malnutrition Category: Medical Code(s): E46 - Unspecified protein-calorie malnutrition (7) Wheelchair bound Current visit: Yes Status: Acute Category: Medical Code(s): Z99.3 - Dependence on wheelchair (8) Tobacco use Current visit: No Status: Acute Category: Medical Code(s): Z72.0 - Tobacco use (9) Impaired mobility and ADLs Current visit: Yes Status: Acute Category: Medical Code(s): Z74.09 - Other reduced mobility (10) Status post fracture of femur Current visit: Yes Status: Chronic Category: Medical Code(s): Z87.81 - Personal history of (healed) traumatic fracture - Assessment and plan all Dx Assessment and Plan for all problems:: Care management and physical therapy to see patient today. Otherwise we will continue current care. <Dinorah Cornell - Last Filed: 01/10/19 09:40> Internal Medicine - PN: Subj *Date: 01/10/19 *Time: 09:40 Exam Vital signs and Labs for Last 24 Hours: Temp Pulse Resp BP Pulse Ox 97.8 F 81 20 142/83 H 95 01/10/19 07:44 01/10/19 07:44 01/10/19 07:44 01/10/19 07:44 01/10/19 07:44 Laboratory Results - last 24 hr 01/10/19 06:25: Sodium 133 L, Potassium 4.1, Chloride 99, Carbon Dioxide 23, Anion Gap 15.1 H, BUN 9 D, Creatinine 0.62, Estimated Creat Clear 28, Estimated GFR 93, Est GFR ( Amer) 112, Glucose 92, Calcium 8.1 L, Total Bilirubin 0.3, AST 15, ALT 15, Alkaline Phosphatase 130 H, Total Protein 5.7 L, Albumin 2.7 L, Globulin 3.0, Albumin/Globulin Ratio 0.9 L 01/10/19 06:25: WBC 6.6, RBC 4.04 L, Hgb 12.4, Hct 39.5, MCV 97.6, MCH 30.6, MCHC 31.3 L, RDW 15.3, Plt Count 318, MPV 7.5, Neut % (Auto) 74.7, Lymph % (Auto) 15.1, [place] % (Auto) 6.0, Eos % (Auto) 3.5, Baso % (Auto) 0.7, Neut # (Auto) 4.9, Lymph # (Auto) 1.0, [place] # (Auto) 0.4, Eos # (Auto) 0.2, Baso # (Auto) 0.0 I & O for Last 24 hours: Intake & Output 01/07/19 01/08/19 01/09/19 01/10/19 11:59 11:59 11:59 11:59 Intake Total 1811 / 1811 1389 / 1389 Output Total 350 / 350 Balance 1461 / 1461 1389 / 1389 Weight 82 lb 9 oz 82 lb 7.246 oz 86 lb 8 oz Assessment and Plan (1) Physical deconditioning Current visit: Yes Status: Acute Category: Medical Code(s): R53.81 - Other malaise (2) Pressure ulcer Current visit: Yes Status: Acute Category: Medical Code(s): L89.90 - Pressure ulcer of unspecified site, unspecified stage (3) Pain in finger of left hand Current visit: Yes Status: Acute Category: Medical Code(s): M79.645 - Pain in left finger(s) (4) HHD (hypertensive heart disease) Current visit: No Status: Chronic Qualifiers: Heart failure presence: without heart failure Qualified Code(s): I11.9 - Hypertensive heart disease without heart failure Category: Medical Code(s): I11.9 - Hypertensive heart disease without heart f ailure (5) Low body mass index (BMI) Current visit: No Status: Chronic Category: Medical (6) Protein calorie malnutrition Current visit: No Status: Chronic Qualifiers: Protein-calorie malnutrition severity: unspecified severity Qualified Code(s): E46 - Unspecified protein-calorie malnutrition Category: Medical Code(s): E46 - Unspecified protein-calorie malnutrition (7) Wheelchair bound Current visit: Yes Status: Acute Category: Medical Code(s): Z99.3 - Dependence on wheelchair (8) Tobacco use Current visit: No Status: Acute Category: Medical Code(s): Z72.0 - Tobacco use (9) Impaired mobility and ADLs Current visit: Yes Status: Acute Category: Medical Code(s): Z74.09 - Other reduced mobility (10) Status post fracture of femur Current visit: Yes Status: Chronic Category: Medical Code(s): Z87.81 - Personal history of (healed) traumatic fracture - Assessment and plan all Dx Assessment and Plan for all problems:: Discharged today.
--- NOTE | 2019-01-10 14:46 | Discharge Summary ---
General - General Admission date:: 01/08/19 Discharge date: 01/10/19 HPI HPI: Ms. Vergara is an 78-year-old female who currently lives in her own home with a [employer] labor [employer] (her nephew). She has history of hypertension, chronic back pain, and depression. She sustained a fracture to her femur, clavicle, ribs, and forearm a few months ago and was seen by Dr. Lott who then reported the situation to [facility]. The patient's nephew was unhappy with the care and refused to see Dr. Lott again, therefore he was going to take the patient to for further management of her fractures. She did not do well after the fractures and was essentially unable to walk. She became extremely weak. Her nephew wanted her to be placed in a rehab facility, however they could not afford this. He then wanted her to have home health physical therapy. She was seen in the office on 01/03/2019 with complaints of weakness and a left fifth digit that was turning blue. Dr. Cornell did give the patient's nephew the number to contact [facility]. The patient then developed a bedsore on her left buttock and her finger began turning purple. Her caregiver was advised to bring her back for evaluation. She was seen in the office on 01/08/2019 and was felt to possibly hare ve some necrosis of the left fifth digit. She was unable to walk and felt to be deconditioned. She was admitted for further evaluation and treatment. Hospital Course Hospital Course: The patient's hand x-ray showed nothing acute. Physical therapy and Occupational Therapy were consulted as was dietary. Dietary felt she should supplement her diet with Ensure with meals 3 times daily and protein fortified shakes. They also added a vitamin. The patient did tolerate the diet per the dietitian. She was able to walk with assistance to the bathroom. She was seen by Occupational Therapy and they felt she would benefit from returning home with a home health evaluation to increase safety in her home environment. Care management spoke with [facility] and they were in agreement to start services when she returned home. She was stable to be discharged home with home health. Objective Vital signs: Temp Pulse Resp BP Pulse Ox 97.8 F 81 20 142/83 H 95 01/10/19 07:44 01/10/19 07:44 01/10/19 07:44 01/10/19 07:44 01/10/19 07:44 Narrative: - Constitutional no acute distress, cachectic Comments: Frail, unable to walk - *Routine HEENT Exam Head: Present: normocephalic Eye: Present: EOMI, PERRL ENT: Present: mucous membranes dry - *Routine Neck Exam Present: supple. Absent: lymphadenopathy - *Routine Respiratory Exam Present: CTA bilaterally - *Routine Cardiovascular Exam Present: RRR - *Routine Abdominal Exam Present: soft, normoactive bowel sounds. Absent: tenderness - *Routine Extremities Exam Present: cyanosis. Absent: clubbing, edema - *Routine Skin Exam Present: warm. Absent: rash Comments: left fifth digit is bluish/black in color and ttp, there is a stage I pressure ulcer on her left buttock - *Routine Neurological Exam Present: alert, altered mental status Results Labs on day of discharge: Labs from last 24 hours 01/10/19 01/10/19 06:25 06:25 WBC 6.6 RBC 4.04 L Hgb 12.4 Hct 39.5 MCV 97.6 MCH 30.6 MCHC 31.3 L RDW 15.3 Plt Count 318 MPV 7.5 Neut % (Auto) 74.7 Lymph % (Auto) 15.1 Dent % (Auto) 6.0 Eos % (Auto) 3.5 Baso % (Auto) 0.7 Neut # (Auto) 4.9 Lymph # (Auto) 1.0 Dent # (Auto) 0.4 Eos # (Auto) 0.2 Baso # (Auto) 0.0 Sodium 133 L Potassium 4.1 Chloride 99 Carbon Dioxide 23 Anion Gap 15.1 H BUN 9 D Creatinine 0.62 Estimated Creat Clear 28 Estimated GFR 93 Est GFR ( Amer) 112 Glucose 92 Calcium 8.1 L Total Bilirubin 0.3 AST 15 ALT 15 Alkaline Phosphatase 130 H Total Protein 5.7 L Albumin 2.7 L Globulin 3.0 Albumin/Globulin Ratio 0.9 L DS: Diagnosis - Discharge Diagnosis (1) Physical deconditioning Status: Acute (2) Pressure ulcer Status: Acute (3) Pain in finger of left hand Status: Acute (4) HHD (hypertensive heart disease) Status: Chronic (5) Low body mass index (BMI) Status: Chronic (6) Protein calorie malnutrition Status: Chronic (7) Wheelchair bound Status: Acute (8) Tobacco use Status: Acute (9) Impaired mobility and ADLs Status: Acute (10) Status post fracture of femur Status: Chronic Discharge Plan - Patient Discharge Instructions ACTIVITY: Continue current activity DIET: continue same diet Patient Instructions: How to Prevent Pressure Ulcers, DI for Pressure Sores, DI for Muscle Weakness - Follow up Plan Follow up with: Dinorah Cornell MD [Primary Care Provider] - 01/17/19 1:00 pm Disposition: Home Health Service Home Medications: Home Medications Medication Instructions Recorded Confirmed Type Aspirin [Low Dose Aspirin EC] 81 mg PO DAILY 01/08/19 01/08/19 History Folic Acid [Folic Acid 1mg tablet] 1 mg PO DAILY 01/08/19 01/08/19 History Hydrocodone/Acetaminophen 1 each PO BID 01/08/19 01/09/19 History [Hydrocodone-Acetamin 7.5-325] Lidocaine 1 patch TOPICAL DAILY 01/08/19 01/08/19 History Losartan Potassium 25 mg PO DAILY 01/08/19 01/08/19 History Mirtazapine [Remeron] 15 mg PO HS 01/08/19 01/08/19 History Multivit with Iron-Minerals 1 tab PO DAILY 01/08/19 01/08/19 History [Complete Senior] Tizanidine HCl 6 mg PO TIDP PRN 01/09/19 01/09/19 History Prescriptions/Medication Reconciliation: Continued Losartan Potassium 25 mg PO DAILY Hydrocodone/Acetaminophen [Hydrocodone-Acetamin 7.5-325] 1 each PO BID Lidocaine 1 patch TOPICAL DAILY Folic Acid [Folic Acid 1mg tablet] 1 mg PO DAILY Aspirin [Low Dose Aspirin EC] 81 mg PO DAILY Multivit with Iron-Minerals [Complete Senior] 1 tab PO DAILY Mirtazapine [Remeron] 15 mg PO HS Tizanidine HCl 6 mg PO TIDP PRN PRN Reason: Muscle Spasm
== END 2019-01-10 12:25 | disposition home health service (06) ==
LOC: 2ND
PROVIDERS: ADMIT Emergency Medicine; ATTEND Emergency Medicine
DX: Z68.1 Body mass index [BMI] 19.9 or less, adult; R53.81 Other malaise; Z87.81 Personal history of (healed) traumatic fracture; Z79.899 Other long term (current) drug therapy; Z79.82 Long term (current) use of aspirin; I11.9 Hypertensive heart disease without heart failure; L89.90 Pressure ulcer of unspecified site, unspecified stage; Z72.0 Tobacco use; Z74.09 Other reduced mobility; Z88.7 Allergy status to serum and vaccine; E46 Unspecified protein-calorie malnutrition; Z99.3 Dependence on wheelchair
CPT/HCPCS: 36415; 73130; 80048; 80053; 83735; 85025; 93005; 97161; 97166; G0378

== ENCOUNTER → 2019-03-11 15:17 | Outpatient (CLI) | payer MEDICARE, BC, SELFPAY ==
--- NOTE | 2019-03-11 15:40 | XR_ITS ---
PROCEDURE: XR ELBOW LT MIN 3V CLINICAL INDICATION: FALL,SPRIAN OF LT ELBOW Pain following injury COMPARISON: No exams were available for comparison FINDINGS: At the olecranon process there is a subtle lucency. This could be related to a nondisplaced fracture age indeterminate. An atypical osteophyte could have a similar appearance. There is prominent overlying soft tissue swelling at the olecranon region. No other significant anomalies are evident. IMPRESSION: Possible nondisplaced fracture of the tip ill of the olecranon versus atypical osteophyte with prominent soft tissue swelling at the olecranon area Dictated by: Alan Boyd MD 03/11/2019 16:42 Electronically signed by Alan Boyd MD in [place] 03/11/2019 16:42
== END ==
PROVIDERS: PCP Emergency Medicine; Visit Provider Emergency Medicine
DX: S53.402A Unspecified sprain of left elbow, initial encounter (principal); W19.XXXA Unspecified fall, initial encounter
CPT/HCPCS: 73080

== ENCOUNTER → 2019-07-18 11:21 | Outpatient (CLI) | payer MEDICARE, BC, SELFPAY ==
--- NOTE | 2019-07-18 11:32 | XR_ITS ---
PROCEDURE: XR CHEST 2V CLINICAL HISTORY: SOA Congestion and shortness of air COMPARISON: CXR2 CHEST-AP VIEW ONLY from 04/02/2017 CXR1VP XR chest portable from 07/30/2018 FINDINGS: There is cardiomegaly without failure. No lobar consolidation or collapse. There is some mild pleural thickening in the left lung base laterally with possible small area of infiltrate. Surgical clips are present overlying the right apex. There is diffuse osteopenia. There has been prior vertebroplasty at T12 and L3. Multiple wedge compression changes are present at L1 T10, T9. The upper thoracic spine is poorly demonstrated due to the diffuse osteopenia. Aortic valve calcifications are noted. There is mild thoracic scoliosis convex left IMPRESSION: 1. Cardiomegaly with pleural thickening in the left lung base with possible left basilar infiltrate 2. Diffuse osteopenia with multiple wedge compression changes and prior vertebroplasty as detailed above Dictated by: Alan Boyd MD 07/18/2019 16:20 Electronically signed by Alan Boyd MD in [place] 07/18/2019 16:20
== END ==
PROVIDERS: PCP Emergency Medicine; Visit Provider Physician Assistant
DX: R06.00 Dyspnea, unspecified (principal)
CPT/HCPCS: 71046

== ENCOUNTER → 2019-08-01 12:30 | Outpatient (CLI) | payer MEDICARE, BC, SELFPAY ==
--- NOTE | 2019-08-01 12:33 | XR_ITS ---
PROCEDURE: XR CHEST 2V CLINICAL HISTORY: Dyspnea COMPARISON: CXR2 CHEST-AP VIEW ONLY from 04/02/2017 CXR1VP XR chest portable from 07/30/2018 XR CHEST 2V from 07/18/2019 FINDINGS: There is mild cardiomegaly without failure. There is severe thoracic kyphosis with multiple wedge compression changes of the thoracic spine. There has been prior vertebroplasty at T11 and L2. Moderate wedge compression changes involve T12 and L1 not significantly changed. There are also compression changes involving T9 T8 and T7 unchanged. There is aortic valve calcification. There are old right-sided rib fractures. Surgical clips are present in the right axilla and there is a healing right humeral neck fracture. There are some chronic interstitial changes of the lungs. Previously noted pleural thickening in the left lung base has shown some improvement or is less apparent due to positioning. IMPRESSION: Overall no significant change with no acute finding. Dictated by: Alan Boyd MD 08/01/2019 14:30 Electronically signed by Alan Boyd MD in [place] 08/01/2019 14:30
== END ==
PROVIDERS: PCP Emergency Medicine; Visit Provider Physician Assistant
DX: R06.00 Dyspnea, unspecified (principal)
CPT/HCPCS: 71046

== ENCOUNTER 2019-08-03 08:38 | Inpatient (IN) ==
[2019-08-03 09:10] LABS: ABG Base Excess -1.3 mmol/L (-2.4-2.3); ABG HCO3 22.9 mmhg (22.0-26.0); ABG Oxygen Saturation 94 % (90-100); ABG PCO2 34.8 mmhg (35.0-45.0); ABG PH 7.44 mmol/L (7.35-7.45); ABG PO2 74.8 mmhg (80-100)
[2019-08-03 09:11] LABS: Allen's Test Acceptable; Oxygen 4L NC %
[2019-08-03 09:14] LABS: Microscopic, Urine URINE MICROSCOPIC (MICROSCOPIC)
[2019-08-03 09:16] LABS: Basophils % 0.5 % (0.1-2.0); Eosinophils # 0.3 K/mm3 (0.0-0.4); Eosinophils % 3.7 % (0.1-12.0); Hematocrit 45.4 % (37.0-47.0); Hemoglobin 13.8 g/dL (12.2-16.2); Lymphocytes # 0.9 K/mm3 (0.7-4.5); Lymphocytes % 12.3 % (10-50); Mean Corpuscular HGB Conc 30.4 g/dL (31.8-35.4); Mean Corpuscular Volume 95.4 fl (81-99); Mean Platelet Volume 9.4 fl (7.4-10.4); Monocytes # 0.4 K/mm3 (0.1-1.0); Monocytes % 6.3 % (1.7-9.3); Neutrophils # 5.4 K/mm3 (1.8-7.8); Neutrophils % 77.3 % (37.0-80.0); Platelet Count 243 K/mm3 (142-424); Red Blood Count 4.76 M/mm3 (4.20-5.40); Red Cell Distribution Width 14.4 % (11.5-17.5)
[2019-08-03 09:29] LABS: Appearance,Urine CLOUDY (Clear); Bilirubin,Urine Negative (Negative); Blood, Urine 2+ (Negative); Color,Urine YELLOW (Yellow); Glucose,Urine (UA) Negative (Negative); Ketones,Urine Negative (Negative); Leukocyte Esterase,Urine 2+ (Negative); Protein,Urine 2+ (Negative); Specific Gravity, Urine >= 1.030 (1.005-1.030); Urobilinogen,Urine 0.2 EU/dl (0.2)
[2019-08-03 09:40] LABS: Albumin Level 3.9 gm/dL (3.4-5.0); Albumin/Globulin Ratio 1.2 (1.1-1.8); Anion Gap 15.6 mEq/L (5-15); Bilirubin,Total 0.6 mg/dL (0.2-1.0); Globulin 3.2 gm/dl (1.3-3.2); Total Protein,Serum 7.1 gm/dL (6.4-8.2)
[2019-08-03 09:41] LABS: Bacteria,Urine 2+ /lpf; Squamous Epithelial Cell,Urine Occasional #/hpf (0-5)
--- NOTE | 2019-08-03 09:57 | Emergency Department Note ---
ED Disposition Clinical Impression: UTI (urinary tract infection) Qualifiers: Urinary tract infection type: acute cystitis Hematuria presence: without hematuria Qualified Code(s): N30.00 - Acute cystitis without hematuria Community acquired pneumonia Qualifiers: Laterality: unspecified laterality Qualified Code(s): J18.9 - Pneumonia, unspecified organism Disposition: Admitted as Observation Condition on Discharge: Undetermined - Critical Care Critical Care Time: No Attestation: On , the high probability of a clinically significant, sudden or life threatening deterioration of the following system(s) required my full and direct attention, intervention and personal management. The time I documented below is in addition to time spent performing reported procedures but includes the following listed in this critical care notation. Medical Decision Making - Rudy Inquiry Pt receiving controlled substance: No Vital Signs: 08/03/19 08:39 08/03/19 09:11 08/03/19 10:30 Temperature 97.6 F 97.7 F Temperature Source Oral Rectal Pulse Rate Pulse Rate [Right Brachial] 90 71 Respiratory Rate 24 18 Blood Pressure Blood Pressure [Right Arm] 165/111 H 160/100 H Blood Pressure Mean [Right Arm] 129 120 Blood Pressure Position [Right Arm] 02 Sat by Pulse Oximetry 97 97 Oxygen Delivery Method Nasal Cannula Oxygen Flow Rate (LPM) 2 08/03/19 11:24 08/03/19 11:51 08/03/19 12:00 Temperature Temperature Source Pulse Rate Pulse Rate [Right Brachial] 77 Respiratory Rate 18 Blood Pressure Blood Pressure [Right Arm] 178/100 H Blood Pressure Mean [Right Arm] 126 Blood Pressure Position [Right Arm] 02 Sat by Pulse Oximetry 97 Oxygen Delivery Method Nasal Cannula Nasal Cannula Nasal Cannula Oxygen Flow Rate (LPM) 2 2 1 08/03/19 12:05 08/03/19 12:06 Temperature 98.1 F Temperature Source Pulse Rate 109 H Pulse Rate [Right Brachial] 113 H Respiratory Rate 20 18 Blood Pressure 165/91 H Blood Pressure [Right Arm] 165/91 H Blood Pressure Mean [Right Arm] 115 Blood Pressure Position [Right Arm] Supine 02 Sat by Pulse Oximetry 96 Oxygen Delivery Method Nasal Cannula Room Air Oxygen Flow Rate (LPM) - Lab Data Lab Results 08/03/19 08:44: Specimen Source Right brachial, O2 % 4l nc, ABG pH 7.44, ABG pCO2 34.8 L, ABG pO2 74.8 L, ABG HCO3 22.9, ABG Total CO2 24.0, ABG O2 Saturation 94, ABG Base Excess -1.3, Alan Test Acceptable 08/03/19 08:49: Urine Color Yellow, Urine Appearance Cloudy, Urine pH 6.0, Ur Specific [place] >= 1.030, Urine Protein 2+, Urine Glucose (UA) Negative, Urine Ketones Negative, Urine Blood 2+, Urine Nitrate Positive, Urine Bilirubin Negative, Urine Urobilinogen 0.2, Ur Leukocyte Esterase 2+ A, Urine RBC 5-10, Urine WBC 5-10, Ur Squamous Epith Cells Occasional, Urine Bacteria 2+ 08/03/19 08:49: WBC 7.0, RBC 4.76, Hgb 13.8, Hct 45.4, MCV 95.4, MCH 29.0, MCHC 30.4 L, RDW 14.4, Plt Count 243, MPV 9.4, Neut % (Auto) 77.3, Lymph % (Auto) 12.3, Kimble % (Auto) 6.3, Eos % (Auto) 3.7, Baso % (Auto) 0.5, Neut # (Auto) 5.4, Lymph # (Auto) 0.9, Kimble # (Auto) 0.4, Eos # (Auto) 0.3, Baso # (Auto) 0.0 08/03/19 08:49: Sodium 147 H, Potassium 3.6, Chloride 108 H, Carbon Dioxide 27, Anion Gap 15.6 H, BUN 23 H, Creatinine 1.20 H, Estimated Creat Clear 21, Estimated GFR 43 L, Est GFR ( Amer) 52 L, Glucose 99, Calcium 9.0, Total Bilirubin 0.6, AST 13 L, ALT 16, Alkaline Phosphatase 149 H, Troponin I 0.04, Total Protein 7.1, Albumin 3.9, Globulin 3.2, Albumin/Globulin Ratio 1.2 08/03/19 08:49: Lactate 1.5 08/03/19 08:49: Influenza Type A Ag Negative, Influenza Type B Ag Negative 08/03/19 12:15: Troponin I 0.03 Result diagrams: 08/03/19 08:49 08/03/19 08:49 Orders (Tests/Meds): ED MEDICATIONS Generic Name Dose Route Start Last Admin Trade Name Freq PRN Reason Stop Dose Admin Azithromycin 500 mg/ Sodium 250 mls @ 250 mls/hr 08/04/19 11:00 Chloride IV 08/17/19 10:59 Q24H JOSE Protocol Ertapenem 0.5 gm/ Sodium 50 mls @ 100 mls/hr 08/04/19 11:00 Chloride IV 08/17/19 10:59 Q24H JOSE Protocol Nicotine 21 mg 08/03/19 18:00 08/03/19 18:10 Nicoderm 21mg/24hr Patch TD 09/02/19 17:59 21 mg DAILY JOSE Administration Sodium Chloride 10 ml 08/03/19 13:35 Saline Flush 10ml Syringe IV 09/02/19 13:34 NEEDED PRN Maintain IV Site Discontinued Medications Generic Name Dose Route Start Last Admin Trade Name Freq PRN Reason Stop Dose Admin Albuterol/Ipratropium 3 ml 08/03/19 08:45 08/03/19 08:55 Duoneb 3ml Neb IH 08/03/19 08:46 3 ml ONCE ONE Administration Sodium Chloride 1,000 mls @ 999 mls/hr 08/03/19 08:45 08/03/19 08:57 Sod Chlor 0.9% 1000ml Bag IV 08/03/19 09:45 999 mls/hr .Q1H1M JOSE Administration Ceftriaxone Sodium 1 gm/ 50 mls @ 100 mls/hr 08/03/19 11:15 08/03/19 11:17 Sodium Chloride IV 08/17/19 11:14 100 mls/hr Q24H JOSE Administration Protocol Azithromycin 500 mg/ Sodium 250 mls @ 250 mls/hr 08/03/19 11:15 08/03/19 11:17 Chloride IV 08/17/19 11:14 250 mls/hr Q24H JOSE Administration Protocol Sodium Chloride 1,000 mls @ 250 mls/hr 08/03/19 11:15 08/03/19 13:00 Sod Chlor 0.9% 1000ml Bag IV 09/02/19 11:14 Not Given .Q4H JOSE Ertapenem 0.5 gm/ Sodium 50 mls @ 100 mls/hr 08/03/19 11:30 08/03/19 12:48 Chloride IV 08/17/19 11:29 100 mls/hr Q24H JOSE Administration Protocol Methylprednisolone Sodium Succinate 125 mg 08/03/19 08:44 08/03/19 08:57 Solu-Medrol 125mg/2ml Vial IV 08/03/19 08:45 125 mg ONCE ONE Administration ORDERS Category Date Time Status Blood Culture Stat Micro 08/03/19 08:49 Received Urine Culture Stat Micro 08/03/19 08:49 Received Medical Decision Narrative: In summary this is an 78-year-old female presenting to the emergency department with altered mental status and shortness of breath. Patient is requiring 2 L by nasal cannula to maintain oxygen saturations greater than 90%. Afebrile another vital signs stable on arrival to the emergency department. She is frail. Differential diagnoses include pneumonia, bronchitis, ACS, urinary tract infection, respiratory failure. Plan to obtain CBC, CMP, urinalysis, ABG, chest x-ray, EKG, troponin profile, noncontrast head CT and reassess. Patient given DuoNeb Chart review states that the patient is on Keflex and steroids for treatment of presumptive pneumonia. Laboratory results remarkable for elevated creatinine at 1.20. Urinalysis shows signs of urinary tract infection with leukoesterase and bacteria. Patient also appears to be dehydrated. Given IV fluid bolus, IV Rocephin. She still is requiring 2 L by nasal cannula. Does not use home oxygen. We will add azithr omycin for atypical pneumonia coverage. [facility] medicine, Dr. Oconnor, consulted for evaluation admission. General Adult HPI - General Chief complaint: Shortness of Breath/Dyspnea Stated complaint: altered mental status Time Seen by Provider: 08/03/19 09:04 Mode of Arrival: EMS Limitations: Physical Limitations Description of Symptoms (Recalled from ER Triage Doc. by RN): pt presents to ed by ems. ems states that this morning when patients son got her up she "passed out." pt has recently been treated for pneumonia. - History of Present Illness HPI narrative: 78-year-old female presenting to the emergency department after a syncopal episode. EMS states that the patient's son went to help her get up this morning and she was fatigued, had difficulty standing. Unclear if she fell or not. On arrival to the emergency department patient is a very poor historian. Answers yes and no questions appropriately, but does not provide additional information. Chart review states that she has a history of low BMI, alcohol use, tobacco use. EMS stated that she was being treated for pneumonia at home. Do not believe that she uses oxygen at home. Patient denies any current chest pain, abdominal pain, nausea, vomiting, speech difficulty, focal numbness or weakness. - Related Data Home Medications Medication Instructions Recorded Confirmed Donepezil HCl [Aricept 10mg 10 mg PO HS 08/03/19 08/03/19 tablet] Previous Rx's Medication Instructions Recorded aspirin 81 mg tablet,delayed 81 mg PO DAILY #90 tab 06/15/19 release losartan 25 mg tablet 25 mg PO DAILY #90 tab 06/15/19 mirtazapine 15 mg tablet 15 mg PO HS #90 tab 06/15/19 hydrocodone 7.5 mg-acetaminophen 1 tab PO BID #60 tab 08/01/19 325 mg tablet Allergies Allergy/AdvReac Type Severity Reaction Status Date / Time tetanus immune globulin Allergy Verified 08/03/19 08:43 [facility] History - Hepatitis A Screen Drug use history?: No High risk sexual behaviors?: No History of sexually transmitted infection?: No Currently employed?: No Childcare worker?: No Do you have indoor plumbing?: Yes Do you have electricity?: Yes Attestation statement:: This patient has been screened for Hepatitis A risk factors. I have reviewed the patient's past medical history: Yes Medical History: Reports:: Hyperlipidemia, Hypertension Denies:: Cancer, Diabetes Mellitus Type 1, Diabetes Mellitus Type 2, MRSA, Seizures Other Medical History: Denies: Blood Transfusion Reaction Comment: Documented history of alcohol use and tobacco use Laterality Cases: Bilateral: Mastectomy Other Surgeries: Yes: Other (femur repair) Amputation: No Fractures: Yes (HIP FRACTURE) - Social History Smoking Status: Current every day smoker Tobacco Type: cigarettes # Packs/Day (cigarettes): 1 Alcohol Intake: former Alcohol Intake Frequency:: a few times a week Occupational Status: retired, other Housing: house Household Members: family Family Hx:: Hypertension ROS Obtained: Yes All systems reviewed & no additional complaints - Constitutional Constitutional: Reports body ache, Reports chills, Reports fatigue, Denies fever(s), Reports frequent falls, Denies headache(s), Reports lethargy - Eyes Eyes: Denies blurry vision, Denies change in vision - ENT Ears, Nose, Mouth, and Throat: Denies headache(s), Denies neck pain - Cardiovascular Cardiovascular: Denies chest pain, Denies shortness of breath when lying down, Denies palpitations - Respiratory Respiratory: Yes cough, Yes dyspnea, Yes wheezing - Gastrointestinal Gastrointestingal: Denies: abdominal pain, diarrhea, vomiting - Musculoskeletal Musculoskeletal: Reports decreased muscle mass, Denies back pain, Denies muscle cramps, Denies muscle weakness, Denies neck pain - Integumentary/Breasts Skin/Breast: Denies lesions, Denies rash - Neurologic Neurologic: Reports confusion, Reports unsteadiness, Denies headache(s), Denies numbness, Reports weakness - Endocrine Endocrine: Reports other (Weight loss, poor muscle mass) Physical Exam - General General appearance: alert, in no apparent distress, other (thin, frail) - Head Head exam: atraumatic, normocephalic - Eye Eye exam: Present: normal appearance, EOMI. Absent: scleral icterus - ENT ENT exam: Present: mucous membranes dry - Neck Neck exam: Present: normal inspection, trachea midline. Absent: meningismus, lymphadenopathy - Chest Chest inspection: Present: normal inspection, symmetric chest wall rise - Respiratory Respiratory exam: Present: normal lung sounds bilaterally, wheezes, other (Shallow inspiratory effort). Absent: respiratory distress, accessory muscle use - Cardiovascular Cardiovascular exam: Present: regular rate, normal rhythm, systolic murmur (Ejection murmur, holosystolic) - Abdominal Exam Abdominal exam: Present: soft, normal bowel sounds. Absent: tenderness, gua rding - Extremities Exam Extremities exam: Present: normal inspection, other (muscle wasting) - Neurological Exam Neurological exam: Present: alert. Absent: oriented X3 (Disoriented to place and time) - Psychiatric Psychiatric exam: Present: flat affect - Skin Skin exam: Present: warm, dry, intact
--- NOTE | 2019-08-03 12:01 | Pharmacy Consult Notes ---
[facility] Pharmacy VTE Monitoring - Patient Demographics Admission date: 08/03/19 Report Date: 08/03/19 Time: 12:01 Allergies/Adverse Reactions: Patient Allergies tetanus immune globulin Allergy (Verified 08/03/19 08:43) Height: 1.52 m Weight: 36.287 kg - VTE Risk Labs: VTE Related Lab Results Hgb 13.8 g/dL (12.2-16.2) 08/03/19 08:49 Hct 45.4 % (37.0-47.0) 08/03/19 08:49 Plt Count 243 K/mm3 (142-424) 08/03/19 08:49 BUN 23 mg/dL (7-18) H 08/03/19 08:49 Creatinine 1.20 mg/dL (0.55-1.02) H 08/03/19 08:49 Estimated Creat Clear 21 mL/min (50-200) 08/03/19 08:49 Clinical Trial Participant: No - Prophylaxis VTE Prophylaxis Ordered?: Yes Types of VTE Prophylaxis: TEDS Knee High
--- NOTE | 2019-08-03 15:56 | Electrocardiograph Report ---
APPROVED REPORT Exam: Resting ECG HR:76 bpm ECG Measurements Heart Rate 76 AXES FL 128 P 52 QRSd 108 QRS -65 QT 414 T92 QTc 465 <Conclusion> Sinus rhythm with premature supraventricular complexes Possible Left atrial enlargement Left anterior fascicular block Left ventricular hypertrophy with repolarization abnormality Incomplete RBBB Abnormal ECG Electronically signed by : Michele Yen, 08/03/2019 15:56:14
--- NOTE | 2019-08-03 20:56 | History & Physical Report ---
*Admission Date: 08/03/19 *Chief complaint: altered mental status *History of present illness: this pt presented to the ed -presents to ed by ems. ems states that this morning when patients son got her up she "passed out." pt has recently been treated for pneumonia. 78-year-old female presenting to the emergency department after a syncopal episode. EMS states that the patient's son went to help her get up this morning and she was fatigued, had difficulty standing. Unclear if she fell or not. On arrival to the emergency department patient is a very poor historian. Answers yes and no questions appropriately, but does not provide additional information. Chart review states that she has a history of low BMI, alcohol use, tobacco use. EMS stated that she was being treated for pneumonia at home. Do not believe that she uses oxygen at home. Patient denies any current chest pain, abdominal pain, nausea, vomiting, speech difficulty, focal numbness or weakness. n summary this is an 78-year-old female presenting to the emergency department with altered mental status and shortness of breath. Patient is requiring 2 L by nasal cannula to maintain oxygen saturations greater than 90%. Afebrile another vital signs stable on arrival to the emergency department. She is frail. Differential diagnoses include pneumonia, bronchitis, ACS, urinary tract infection, respiratory failure. Plan to obtain CBC, CMP, urinalysis, ABG, chest x-ray, EKG, troponin profile, noncontrast head CT and reassess. Patient given DuoNeb Chart review states that the patient is on Keflex and steroids for treatment of presumptive pneumonia. Laboratory results remarkable for elevated creatinine at 1.20. Urinalysis shows signs of urinary tract infection with leukoesterase and bacteria. Patient also appears to be dehydrated. Given IV fluid bolus, IV Rocephin. She still is requiring 2 L by nasal cannula. Does not use home oxygen. We will add azithromycin for atypical pneumonia coverage. Hospital medicine, Dr. Oconnor, consulted for evaluation admission. pt with abn ua and had been treated as pneumonia as op will admit with orders [facility] History I have reviewed the patient's past medical history: Yes Medical History: Reports:: Hyperlipidemia, Hypertension Denies:: Cancer, Diabetes Mellitus Type 1, Diabetes Mellitus Type 2, MRSA, Seizures *Have you ever received a pneumonia vaccine?: No *Have you received a flu vaccine this season?: No Other Medical History: Denies: Blood Transfusion Reaction Laterality Cases: Bilateral: Mastectomy Other Surgeries: Yes: Other (femur repair) Amputation: No Fractures: Yes (HIP FRACTURE) - *Social History Smoking Status: Current every day smoker Tobacco Type: cigarettes # Packs/Day (cigarettes): 1 Alcohol Intake: former Alcohol Intake Frequency:: 3 or more drinks per day *Occupational Status:: retired, other Housing: house Household Members: family *Travel in the last 8 weeks: None Family Hx:: Stroke Review of Systems - Review of Systems Review of systems:: pertinent systems reviewed and negative unless documented below - Constitutional Reports weakness, Denies fever(s) - Eyes Denies change in vision - ENT Reports dry mouth, Denies sore throat - *Cardiovascular Denies chest pain, Denies shortness of breath - *Respiratory Denies cough - *Gastrointestinal Denies abdominal pain, Denies vomiting - *Genitourinary Denies blood in urine - *Musculoskeletal Denies joint pain - Integumentary/Breasts Denies rash - *Neurologic Reports confusion, Reports unsteadiness, Reports frequent falls, Reports weakness, Denies headache(s), Denies numbness - Psychiatric Denies thoughts of hurting/killing yourself Meds Home Medications Medication Instructions Recorded Confirmed Type aspirin 81 mg tablet,delayed 81 mg PO DAILY #90 tab 06/15/19 08/03/19 Rx release losartan 25 mg tablet 25 mg PO DAILY #90 tab 06/15/19 08/03/19 Rx mirtazapine 15 mg tablet 15 mg PO HS #90 tab 06/15/19 08/03/19 Rx hydrocodone 7.5 mg-acetaminophen 1 tab PO BID #60 tab 08/01/19 08/03/19 Rx 325 mg tablet Donepezil HCl [Aricept 10mg 10 mg PO HS 08/03/19 08/03/19 History tablet] Allergies Allergy/AdvReac Type Severity Reaction Status Date / Time tetanus immune globulin Allergy Verified 08/03/19 08:43 Exam Vital signs and Labs for Last 24 Hours: Temp Pulse Resp BP Pulse Ox 97.5 F L 90 20 158/80 H 92 L 08/03/19 19:37 08/03/19 19:37 08/03/19 19:37 08/03/19 19:37 08/03/19 19:37 Laboratory Results - last 24 hr 08/03/19 08:44: Specimen Source Right brachial, O2 % 4l nc, ABG pH 7.44, ABG pCO2 34.8 L, ABG pO2 74.8 L, ABG HCO3 22.9, ABG Total CO2 24.0, ABG O2 Saturation 94, ABG Base Excess -1.3, Alan Test Acceptable 08/03/19 08:49: Urine Color Yellow, Urine Appearance Cloudy, Urine pH 6.0, Ur Specific [place] >= 1.030, Urine Protein 2+, Urine Glucose (UA) Negative, Urine Ketones Negative, Urine Blood 2+, Urine Nitrate Positive, Urine Bilirubin Negative, Urine Urobilinogen 0.2, Ur Leukocyte Esterase 2+ A, Urine RBC 5-10, Urine WBC 5-10, Ur Squamous Epith Cells Occasional, Urine Bacteria 2+ 08/03/19 08:49: WBC 7.0, RBC 4.76, Hgb 13.8, Hct 45.4, MCV 95.4, MCH 29.0, MCHC 30.4 L, RDW 14.4, Plt Count 243, MPV 9.4, Neut % (Auto) 77.3, Lymph % (Auto) 12.3, [place] % (Auto) 6.3, Eos % (Auto) 3.7, Baso % (Auto) 0.5, Neut # (Auto) 5.4, Lymph # (Auto) 0.9, Cross # (Auto) 0.4, Eos # (Auto) 0.3, Baso # (Auto) 0.0 08/03/19 08:49: Sodium 147 H, Potassium 3.6, Chloride 108 H, Carbon Dioxide 27, Anion Gap 15.6 H, BUN 23 H, Creatinine 1.20 H, Estimated Creat Clear 21, Estimated GFR 43 L, Est GFR ( Amer) 52 L, Glucose 99, Calcium 9.0, Total Bilirubin 0.6, AST 13 L, ALT 16, Alkaline Phosphatase 149 H, Troponin I 0.04, Total Protein 7.1, Albumin 3.9, Globulin 3.2, Albumin/Globulin Ratio 1.2 08/03/19 08:49: Lactate 1.5 08/03/19 08:49: Influenza Type A Ag Negative, Influenza Type B Ag Negative 08/03/19 12:15: Troponin I 0.03 08/03/19 14:49: Troponin I 0.03 I & O for Last 24 hours: Intake & Output 08/01/19 08/02/19 08/03/19 08/04/19 11:59 11:59 11:59 11:59 Intake Total 1600 / 1600 Balance 1600 / 1600 Weight 89 lb 84 lb - Constitutional no acute distress, thin - *Routine HEENT Exam Head: Present: normocephalic, atraumatic Eye: Present: EOMI, PERRL. Absent: nystagmus ENT: Present: mucous membranes dry - *Routine Neck Exam Present: supple. Absent: JVD - *Routine Respiratory Exam Present: decreased breath sounds. Absent: respiratory distress - *Routine Cardiovascular Exam Present: RRR, murmur, S4 - *Routine Abdominal Exam Present: soft - *Routine Extremities Exam Absent: calf tenderness - *Routine Skin Exam Present: intact - *Routine Neurological Exam Present: alert, oriented X3, CN II-XII intact. Absent: motor deficit - Routine Psychiatric Exam Present: normal affect Assessment and Plan (1) UTI (urinary tract infection) Current visit: Yes Status: Acute Qualifiers: Urinary tract infection type: acute cystitis Hematuria presence: without hematuria Qualified Code(s): N30.00 - Acute cystitis without hematuria Category: Medical Code(s): N39.0 - Urinary tract infection, site not specified (2) H/O kyphoplasty Current visit: No Status: Acute Category: Surgical Code(s): Z98.890 - Other specified postprocedural states (3) History of rib fracture Current visit: No Status: Acute Category: Medical Code(s): Z87.81 - Personal history of (healed) traumatic fracture (4) Tobacco use Current visit: No Status: Acute Category: Social Hx Code(s): Z72.0 - Tobacco use (5) HHD (hypertensive heart disease) Current visit: No Status: Chronic Qualifiers: Heart failure presence: without heart failure Qualified Code(s): I11.9 - Hypertensive heart disease without heart failure Category: Medical Code(s): I11.9 - Hypertensive heart disease without heart failure (6) Hypertension Current visit: No Status: Chronic Qualifiers: Hypertension type: essential hypertension Qualified Code(s): I10 - Essential (primary) hypertension Category: Medical Code(s): I10 - Essential (primary) hypertension (7) Low body mass index (BMI) Current visit: No Status: Chronic Category: Medical (8) Renal insufficiency Current visit: Yes Status: Acute Category: Medical Code(s): N28.9 - Disorder of kidney and ureter, unspecified (9) Encephalomalacia Current visit: Yes Status: Acute Category: Medical Code(s): G93.89 - Other specified disorders of brain
--- NOTE | 2019-08-04 09:02 | Progress Note ---
Internal Medicine - PN: Subj *Date: 08/04/19 *Time: 08:59 Interval history: pt confused, rt side weakness Exam Vital signs and Labs for Last 24 Hours: Temp Pulse Resp BP Pulse Ox 98.1 F 102 H 18 154/84 H 90 L 08/04/19 08:00 08/04/19 08:00 08/04/19 08:00 08/04/19 08:00 08/04/19 08:00 Laboratory Results - last 24 hr 08/03/19 08:44: Specimen Source Right brachial, O2 % 4l nc, ABG pH 7.44, ABG pCO2 34.8 L, ABG pO2 74.8 L, ABG HCO3 22.9, ABG Total CO2 24.0, ABG O2 Saturation 94, ABG Base Excess -1.3, Alan Test Acceptable 08/03/19 08:49: Urine Color Yellow, Urine Appearance Cloudy, Urine pH 6.0, Ur Specific [place] >= 1.030, Urine Protein 2+, Urine Glucose (UA) Negative, Urine Ketones Negative, Urine Blood 2+, Urine Nitrate Positive, Urine Bilirubin Negative, Urine Urobilinogen 0.2, Ur Leukocyte Esterase 2+ A, Urine RBC 5-10, Urine WBC 5-10, Ur Squamous Epith Cells Occasional, Urine Bacteria 2+ 08/03/19 08:49: WBC 7.0, RBC 4.76, Hgb 13.8, Hct 45.4, MCV 95.4, MCH 29.0, MCHC 30.4 L, RDW 14.4, Plt Count 243, MPV 9.4, Neut % (Auto) 77.3, Lymph % (Auto) 12.3, [place] % (Auto) 6.3, Eos % (Auto) 3.7, Baso % (Auto) 0.5, Neut # (Auto) 5.4, Lymph # (Auto) 0.9, [place] # (Auto) 0.4, Eos # (Auto) 0.3, Baso # (Auto) 0.0 08/03/19 08:49: Sodium 147 H, Potassium 3.6, Chloride 108 H, Carbon Dioxide 27, Anion Gap 15.6 H, BUN 23 H, Creatinine 1.20 H, Estimated Creat Clear 21, Estimated GFR 43 L, Est GFR ( Amer) 52 L, Glucose 99, Calcium 9.0, Total Bilirubin 0.6, AST 13 L, ALT 16, Alkaline Phosphatase 149 H, Troponin I 0.04, Total Protein 7.1, Albumin 3.9, Globulin 3.2, Albumin/Globulin Ratio 1.2 08/03/19 08:49: Lactate 1.5 08/03/19 08:49: Influenza Type A Ag Negative, Influenza Type B Ag Negative 08/03/19 12:15: Troponin I 0.03 08/03/19 14:49: Troponin I 0.03 I & O for Last 24 hours: Intake & Output 08/01/19 08/02/19 08/03/19 08/04/19 11:59 11:59 11:59 11:59 Intake Total 1720 / 1720 Output Total 150 / 150 Balance 1570 / 1570 Weight 89 lb 86 lb 3 oz - Constitutional mild distress, thin, chronically ill appearing - *Routine HEENT Exam Head: Present: normocephalic Eye: Present: PERRL ENT: Present: mucous membranes moist - *Routine Neck Exam Present: supple. Absent: lymphadenopathy - *Routine Respiratory Exam Present: decreased breath sounds, rhonchi Comments: increase effort with breathing - *Routine Cardiovascular Exam Present: RRR - *Routine Abdominal Exam Present: soft, normoactive bowel sounds. Absent: tenderness - *Routine Extremities Exam Present: full ROM. Absent: cyanosis, clubbing, edema - *Routine Skin Exam Present: warm. Absent: rash - *Routine Neurological Exam Present: alert, altered mental status rt side weakness, rt side facial drop, unable to grasp with rt hand, unable to kelsi onset - Routine Psychiatric Exam Present: unable to assess Assessment and Plan (1) UTI (urinary tract infection) Current visit: Yes Status: Acute Qualifiers: Urinary tract infection type: acute cystitis Hematuria presence: without hematuria Qualified Code(s): N30.00 - Acute cystitis without hematuria Category: Medical Code(s): N39.0 - Urinary tract infection, site not specified (2) H/O kyphoplasty Current visit: No Status: Acute Category: Surgical Code(s): Z98.890 - Other specified postprocedural states (3) History of rib fracture Current visit: No Status: Acute Category: Medical Code(s): Z87.81 - Personal history of (healed) traumatic fracture (4) Tobacco use Current visit: No Status: Acute Category: Social Hx Code(s): Z72.0 - Tobacco use (5) HHD (hypertensive heart disease) Current visit: No Status: Chronic Qualifiers: Heart failure presence: without heart failure Qualified Code(s): I11.9 - Hypertensive heart disease without heart failure Category: Medical Code(s): I11.9 - Hypertensive heart disease without heart failure (6) Hypertension Current visit: No Status: Chronic Qualifiers: Hypertension type: essential hypertension Qualified Code(s): I10 - Essential (primary) hypertension Category: Medical Code(s): I10 - Essential (primary) hypertension (7) Low body mass index (BMI) Current visit: No Status: Chronic Category: Medical (8) Renal insufficiency Current visit: Yes Status: Acute Category: Medical Code(s): N28.9 - Disorder of kidney and ureter, unspecified (9) Encephalomalacia Current visit: Yes Status: Acute Category: Medical Code(s): G93.89 - Other specified disorders of brain (10) CVA (cerebral vascular accident) Current visit: Yes Status: Acute Qualifiers: CVA mechanism: other Qualified Code(s): I63.89 - Other cerebral infarction Category: Medical Code(s): I63.9 - Cerebral infarction, unspecified unknown time (11) Cachexia Current visit: Yes Status: Acute Category: Medical Code(s): R64 - Cachexia (12) Wheelchair bound Current visit: No Status: Acute Category: Medical Code(s): Z99.3 - Dependence on wheelchair (13) Protein calorie malnutrition Current visit: No Status: Chronic Qualifiers: Protein-calorie malnutrition severity: unspecified severity Qualified Code(s): E46 - Unspecified protein-calorie malnutrition Category: Medical Code(s): E46 - Unspecified protein-calorie malnutrition - Assessment and plan all Dx Assessment and Plan for all problems:: rounded with dr coffey all orders per dr coffey
[2019-08-04 09:04] LABS: Eosinophils % 0.2 % (0.1-12.0)
[2019-08-04 09:08] LABS: Basophils % 0.4 % (0.1-2.0); Hematocrit 38.8 % (37.0-47.0); Lymphocytes % 9.9 % (10-50); Mean Corpuscular HGB Conc 32.3 g/dL (31.8-35.4); Monocytes # 0.8 K/mm3 (0.1-1.0); Monocytes % 8.6 % (1.7-9.3); Neutrophils # 7.9 K/mm3 (1.8-7.8); Neutrophils % 80.9 % (37.0-80.0); Platelet Count 210 K/mm3 (142-424); Red Blood Count 4.26 M/mm3 (4.20-5.40); Red Cell Distribution Width 14.6 % (11.5-17.5); White Blood Count 9.8 K/mm3 (4.8-10.8)
[2019-08-04 09:10] LABS: Hemoglobin 12.5 g/dL (12.2-16.2)
[2019-08-04 09:44] LABS: Calcium 8.6 mg/dL (8.5-10.1)
[2019-08-05 07:02] LABS: Basophils # 0.1 K/mm3 (0-0.2); Basophils % 0.6 % (0.1-2.0); Eosinophils # 0.2 K/mm3 (0.0-0.4); Eosinophils % 2.1 % (0.1-12.0); Hematocrit 42.9 % (37.0-47.0); Lymphocytes # 1.2 K/mm3 (0.7-4.5); Lymphocytes % 12.5 % (10-50); Mean Corpuscular HGB Conc 30.2 g/dL (31.8-35.4); Mean Platelet Volume 10.2 fl (7.4-10.4); Monocytes # 0.7 K/mm3 (0.1-1.0); Neutrophils # 7.1 K/mm3 (1.8-7.8); Neutrophils % 76.7 % (37.0-80.0); Platelet Count 179 K/mm3 (142-424); Red Blood Count 4.51 M/mm3 (4.20-5.40); Red Cell Distribution Width 14.5 % (11.5-17.5); White Blood Count 9.2 K/mm3 (4.8-10.8)
--- NOTE | 2019-08-05 08:56 | Progress Note ---
Internal Medicine - PN: Subj *Date: 08/05/19 *Time: 08:57 Interval history: family at bedside pt alert and responsive to questions Exam Vital signs and Labs for Last 24 Hours: Temp Pulse Resp BP Pulse Ox 97.1 F L 65 20 161/83 H 97 08/05/19 04:00 08/05/19 04:00 08/05/19 04:00 08/05/19 04:00 08/05/19 04:00 Laboratory Results - last 24 hr 08/03/19 08:49: Urine Color Yellow, Urine Appearance Cloudy, Urine pH 6.0, Ur Specific [place] >= 1.030, Urine Protein 2+, Urine Glucose (UA) Negative, Urine Ketones Negative, Urine Blood 2+, Urine Nitrate Positive, Urine Bilirubin Negative, Urine Urobilinogen 0.2, Ur Leukocyte Esterase 2+ A, Urine RBC 5-10, Urine WBC 5-10, Ur Squamous Epith Cells Occasional, Urine Bacteria 2+ 08/04/19 07:40: WBC 9.8 D, RBC 4.26, Hgb 12.5, Hct 38.8, MCV 91.0, MCH 29.4, MCHC 32.3, RDW 14.6, Plt Count 210, MPV 11.0 H, Neut % (Auto) 80.9 H, Lymph % (Auto) 9.9 L, [place] % (Auto) 8.6, Eos % (Auto) 0.2, Baso % (Auto) 0.4, Neut # (Auto) 7.9 H, Lymph # (Auto) 1.0, [place] # (Auto) 0.8, Eos # (Auto) 0.0, Baso # (Auto) 0.0 08/04/19 07:40: Sodium 150 H, Potassium 5.0 D, Chloride 113 H, Carbon Dioxide 18 L D, Anion Gap 24.0 H, BUN 28 H, Creatinine 1.15 H, Estimated Creat Clear 24, Estimated GFR 45 L, Est GFR ( Amer) 55 L, Glucose 111 H, Calcium 8.6 08/05/19 06:13: WBC 9.2, RBC 4.51, Hgb 13.0, Hct 42.9, MCV 95.0, MCH 28.7, MCHC 30.2 L, RDW 14.5, Plt Count 179, MPV 10.2, Neut % (Auto) 76.7, Lymph % (Auto) 12.5, [place] % (Auto) 8.0, Eos % (Auto) 2.1, Baso % (Auto) 0.6, Neut # (Auto) 7.1, Lymph # (Auto) 1.2, [place] # (Auto) 0.7, Eos # (Auto) 0.2, Baso # (Auto) 0.1 I & O for Last 24 hours: Intake & Output 08/02/19 08/03/19 08/04/19 08/05/19 11:59 11:59 11:59 11:59 Intake Total 1720 / 1720 635 / 635 Output Total 150 / 150 100 / 100 Balance 1570 / 1570 535 / 535 Weight 89 lb 86 lb 3 oz 86 lb 7 oz Microbiology Reports for the Last 24 Hours: Microbiology 08/03/19 08:49 Urine,Catheterized Urine Culture - Final Escherichia coli - Constitutional thin, chronically ill appearing - *Routine HEENT Exam Head: Present: normocephalic Eye: Present: PERRL ENT: Present: mucous membranes moist - *Routine Neck Exam Present: supple, full ROM. Absent: lymphadenopathy - *Routine Respiratory Exam Present: decreased breath sounds, rhonchi - *Routine Cardiovascular Exam Present: RRR - *Routine Abdominal Exam Present: soft, normoactive bowel sounds. Absent: tenderness - *Routine Extremities Exam Present: pulses intact, normal capillary refill. Absent: cyanosis, clubbing, edema Comments: rt side weakness both ext unable to move upper and lower ext - *Routine Skin Exam Present: warm. Absent: rash - *Routine Neurological Exam Present: alert, altered mental status rt sided facial drop unable to move or grasp with rt upper ext rt lower ext unable to move - Routine Psychiatric Exam Present: unable to assess Assessment and Plan (1) UTI (urinary tract infection) Current visit: Yes Status: Acute Qualifiers: Urinary tract infection type: acute cystitis Hematuria presence: without hematuria Qualified Code(s): N30.00 - Acute cystitis without hematuria Category: Medical Code(s): N39.0 - Urinary tract infection, site not specified ecoli uti- on invanz remove wilkes (2) H/O kyphoplasty Current visit: No Status: Acute Category: Surgical Code(s): Z98.890 - Other specified postprocedural states (3) History of rib fracture Current visit: No Status: Acute Category: Medical Code(s): Z87.81 - Personal history of (healed) traumatic fracture (4) Tobacco use Current visit: No Status: Acute Category: Social Hx Code(s): Z72.0 - Tobacco use (5) HHD (hypertensive heart disease) Current visit: No Status: Chronic Qualifiers: Heart failure presence: without heart failure Qualified Code(s): I11.9 - Hypertensive heart disease without heart failure Category: Medical Code(s): I11.9 - Hypertensive heart disease without heart failure (6) Hypertension Current visit: No Status: Chronic Qualifiers: Hypertension type: essential hypertension Qualified Code(s): I10 - Essential (primary) hypertension Category: Medical Code(s): I10 - Essential (primary) hypertension (7) Low body mass index (BMI) Current visit: No Status: Chronic Category: Medical eval for feeding tube pending speech eval (8) Renal insufficiency Current visit: Yes Status: Acute Category: Medical Code(s): N28.9 - Disorder of kidney and ureter, unspecified chronic kidney dz stage 3 (9) Encephalomalacia Current visit: Yes Status: Acute Category: Medical Code(s): G93.89 - Other specified disorders of brain (10) CVA (cerebral vascular accident) Current visit: Yes Status: Acute Qualifiers: CVA mechanism: other Qualified Code(s): I63.89 - Other cerebral infarction Category: Medical Code(s): I63.9 - Cerebral infarction, unspecified 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 (11) Cachexia Current visit: Yes Status: Acute Category: Medical Code(s): R64 - Cachexia (12) Wheelchair bound Current visit: No Status: Acute Category: Medical Code(s): Z99.3 - Dependence on wheelchair (13) Protein calorie malnutrition Current visit: No Status: Chronic Qualifiers: Protein-calorie malnutrition severity: unspecified severity Qualified Code(s): E46 - Unspecified protein-calorie malnutrition Category: Medical Code(s): E46 - Unspecified protein-calorie malnutrition (14) Pneumonia, aspiration Current visit: Yes Status: Acute Category: Medical Code(s): J69.0 - Pneumonitis due to inhalation of food and vomit speech will reeval pt today unable to obtain sputum cx at this time - Assessment and plan all Dx Assessment and Plan for all problems:: rounded with alexx all orders per alexx waiting for speech eval and pt/family to discuss poss peg placement vs hospice
[2019-08-05 09:26] LABS: Albumin/Globulin Ratio 1.1 (1.1-1.8); Anion Gap 14.6 mEq/L (5-15); Bilirubin,Total 0.4 mg/dL (0.2-1.0); Calcium 8.5 mg/dL (8.5-10.1); Globulin 2.8 gm/dl (1.3-3.2); Total Protein,Serum 5.8 gm/dL (6.4-8.2)
[2019-08-06 07:22] LABS: Basophils # 0.1 K/mm3 (0-0.2); Basophils % 0.8 % (0.1-2.0); Eosinophils # 0.3 K/mm3 (0.0-0.4); Eosinophils % 5.3 % (0.1-12.0); Hemoglobin 11.3 g/dL (12.2-16.2); Lymphocytes # 0.7 K/mm3 (0.7-4.5); Lymphocytes % 10.4 % (10-50); Mean Corpuscular HGB Conc 30.5 g/dL (31.8-35.4); Mean Corpuscular Volume 91.8 fl (81-99); Mean Platelet Volume 8.4 fl (7.4-10.4); Monocytes # 0.3 K/mm3 (0.1-1.0); Monocytes % 5.1 % (1.7-9.3); Neutrophils % 78.4 % (37.0-80.0); Platelet Count 201 K/mm3 (142-424); Red Blood Count 4.03 M/mm3 (4.20-5.40); Red Cell Distribution Width 14.4 % (11.5-17.5); White Blood Count 6.4 K/mm3 (4.8-10.8)
[2019-08-06 08:01] LABS: Anion Gap 17.9 mEq/L (5-15); Calcium 7.9 mg/dL (8.5-10.1)
--- NOTE | 2019-08-06 09:15 | Progress Note ---
Internal Medicine - PN: Subj *Date: 08/07/19 *Time: 11:02 Interval history: still npo and not sure about g tube and will discuss with family - dec glu will change to d5 and modify abx Exam Vital signs and Labs for Last 24 Hours: Temp Pulse Resp BP Pulse Ox 97.7 F 111 H 16 162/86 H 96 08/06/19 07:58 08/06/19 07:58 08/06/19 07:58 08/06/19 07:58 08/06/19 07:58 Laboratory Results - last 24 hr 08/05/19 08:50: Sodium 147 H, Potassium 3.6 D, Chloride 111 H, Carbon Dioxide 25 D, Anion Gap 14.6, BUN 30 H, Creatinine 1.10 H, Estimated Creat Clear 25, Estimated GFR 48 L, Est GFR ( Amer) 58 L, Glucose 67 L, Calcium 8.5, Total Bilirubin 0.4, AST 25 D, ALT 13, Alkaline Phosphatase 113, Total Protein 5.8 L, Albumin 3.0 L, Globulin 2.8, Albumin/Globulin Ratio 1.1 08/06/19 06:34: WBC 6.4 D, RBC 4.03 L, Hgb 11.3 L, Hct 37.0, MCV 91.8, MCH 28.0, MCHC 30.5 L, RDW 14.4, Plt Count 201, MPV 8.4, Neut % (Auto) 78.4, Lymph % (Auto) 10.4, [place] % (Auto) 5.1, Eos % (Auto) 5.3, Baso % (Auto) 0.8, Neut # (Auto) 5.0, Lymph # (Auto) 0.7, [place] # (Auto) 0.3, Eos # (Auto) 0.3, Baso # (Auto) 0.1 08/06/19 06:34: Sodium 144, Potassium 3.9, Chloride 109 H, Carbon Dioxide 21, Anion Gap 17.9 H, BUN 29 H, Creatinine 0.95, Estimated Creat Clear 30, Estimated GFR 57 L, Est GFR ( Amer) 68, Glucose 43 L D, Calcium 7.9 L I & O for Last 24 hours: Intake & Output 08/03/19 08/04/19 08/05/19 08/06/19 11:59 11:59 11:59 11:59 Intake Total 1720 / 1720 635 / 635 1968 / 1968 Output Total 150 / 150 300 / 300 200 / 200 Balance 1570 / 1570 335 / 335 1769 / 1769 Weight 89 lb 86 lb 3 oz 85 lb 15.684 oz 92 lb Microbiology Reports for the Last 24 Hours: Microbiology 08/03/19 08:49 Blood Blood Culture - Preliminary NO GROWTH AFTER 48 HOURS 08/03/19 08:49 Blood Blood Culture - Preliminary NO GROWTH AFTER 48 HOURS 08/03/19 08:49 Urine,Catheterized Urine Culture - Final Escherichia coli - Constitutional no acute distress, thin - *Routine HEENT Exam Head: Present: normocephalic Eye: Present: EOMI, PERRL ENT: Present: mucous membranes dry - *Routine Neck Exam Absent: JVD - *Routine Respiratory Exam Present: decreased breath sounds - *Routine Cardiovascular Exam Present: RRR, murmur - *Routine Abdominal Exam Present: soft - *Routine Extremities Exam Comments: rt hand swollen - *Routine Skin Exam Present: intact - *Routine Neurological Exam Present: motor deficit dec rt side use - Routine Psychiatric Exam Present: unable to assess Assessment and Plan (1) UTI (urinary tract infection) Current visit: Yes Status: Acute Qualifiers: Urinary tract infection type: acute cystitis Hematuria presence: without hematuria Qualified Code(s): N30.00 - Acute cystitis without hematuria Category: Medical Code(s): N39.0 - Urinary tract infection, site not specified (2) H/O kyphoplasty Current visit: No Status: Acute Category: Surgical Code(s): Z98.890 - Other specified postprocedural states (3) History of rib fracture Current visit: No Status: Acute Category: Medical Code(s): Z87.81 - Personal history of (healed) traumatic fracture (4) Tobacco use Current visit: No Status: Acute Category: Social Hx Code(s): Z72.0 - Tobacco use (5) HHD (hypertensive heart disease) Current visit: No Status: Chronic Qualifiers: Heart failure presence: without heart failure Qualified Code(s): I11.9 - Hypertensive heart disease without heart failure Category: Medical Code(s): I11.9 - Hypertensive heart disease without heart failure (6) Hypertension Current visit: No Status: Chronic Qualifiers: Hypertension type: essential hypertension Qualified Code(s): I10 - Essential (primary) hypertension Category: Medical Code(s): I10 - Essential (primary) hypertension (7) Low body mass index (BMI) Current visit: No Status: Chronic Category: Medical (8) Renal insufficiency Current visit: Yes Status: Acute Category: Medical Code(s): N28.9 - Disorder of kidney and ureter, unspecified (9) Encephalomalacia Current visit: Yes Status: Acute Category: Medical Code(s): G93.89 - Other specified disorders of brain (10) CVA (cerebral vascular accident) Current visit: Yes Status: Acute Qualifiers: CVA mechanism: other Qualified Code(s): I63.89 - Other cerebral infarction Category: Medical Code(s): I63.9 - Cerebral infarction, unspecified (11) Cachexia Current visit: Yes Status: Acute Category: Medical Code(s): R64 - Cachexia (12) Wheelchair bound Current visit: No Status: Acute Category: Medical Code(s): Z99.3 - Dependence on wheelchair (13) Protein calorie malnutrition Current visit: No Status: Chronic Qualifiers: Protein-calorie malnutrition severity: unspecified severity Qualified Code(s): E46 - Unspecified protein-calorie malnutrition Category: Medical Code(s): E46 - Unspecified protein-calorie malnutrition (14) Pneumonia, aspiration Current visit: Yes Status: Acute Category: Medical Code(s): J69.0 - Pneumonitis due to inhalation of food and vomit
[2019-08-07 07:07] LABS: Basophils % 0.6 % (0.1-2.0); Eosinophils # 0.7 K/mm3 (0.0-0.4); Eosinophils % 9.6 % (0.1-12.0); Hematocrit 41.2 % (37.0-47.0); Lymphocytes # 0.8 K/mm3 (0.7-4.5); Lymphocytes % 10.7 % (10-50); Mean Corpuscular HGB Conc 30.4 g/dL (31.8-35.4); Mean Corpuscular Volume 91.3 fl (81-99); Mean Platelet Volume 8.7 fl (7.4-10.4); Monocytes # 0.5 K/mm3 (0.1-1.0); Monocytes % 6.5 % (1.7-9.3); Neutrophils # 5.3 K/mm3 (1.8-7.8); Neutrophils % 72.7 % (37.0-80.0); Platelet Count 214 K/mm3 (142-424); Red Blood Count 4.52 M/mm3 (4.20-5.40); Red Cell Distribution Width 14.5 % (11.5-17.5); White Blood Count 7.3 K/mm3 (4.8-10.8)
[2019-08-07 07:13] LABS: Hemoglobin 12.6 g/dL (12.2-16.2)
--- NOTE | 2019-08-07 11:04 | Progress Note ---
Internal Medicine - PN: Subj *Date: 08/08/19 *Time: 09:24 Interval history: weaker - speech eval in progress Exam Vital signs and Labs for Last 24 Hours: Temp Pulse Resp BP Pulse Ox 97.7 F 112 H 18 152/92 H 97 08/07/19 07:56 08/07/19 07:56 08/07/19 07:56 08/07/19 07:56 08/07/19 07:56 Laboratory Results - last 24 hr 08/06/19 08:18: POC Glucose 162 H 08/06/19 13:28: POC Glucose 90 08/06/19 14:42: POC Glucose 88 08/06/19 17:09: POC Glucose 104 08/06/19 22:26: POC Glucose 119 H 08/07/19 05:59: POC Glucose 141 H 08/07/19 06:21: WBC 7.3, RBC 4.52, Hgb 12.6 D, Hct 41.2, MCV 91.3, MCH 27.8, MCHC 30.4 L, RDW 14.5, Plt Count 214, MPV 8.7, Neut % (Auto) 72.7, Lymph % (Auto) 10.7, [place] % (Auto) 6.5, Eos % (Auto) 9.6, Baso % (Auto) 0.6, Neut # (Auto) 5.3, Lymph # (Auto) 0.8, [place] # (Auto) 0.5, Eos # (Auto) 0.7 H, Baso # (Auto) 0.0 08/07/19 06:21: Sodium 139, Potassium 3.0 L, Chloride 104, Carbon Dioxide 25, Anion Gap 13.0, BUN 18 D, Creatinine 0.93, Estimated Creat Clear 30, Estimated GFR 58 L, Est GFR ( Amer) 70, Glucose 119 H D, Calcium 8.0 L I & O for Last 24 hours: Intake & Output 08/04/19 08/05/19 08/06/19 08/07/19 11:59 11:59 11:59 11:59 Intake Total 1720 / 1720 635 / 635 1969 / 1968 177 / 177 Output Total 150 / 150 300 / 300 200 / 200 850 / 850 Balance 1570 / 1570 335 / 335 1769 / 1769 929 / 929 Weight 86 lb 3 oz 85 lb 15.684 oz 92 lb 92 lb 2 oz - Constitutional no acute distress - *Routine HEENT Exam Head: Present: normocephalic Eye: Present: EOMI, PERRL ENT: Present: mucous membranes dry - *Routine Neck Exam Absent: JVD - *Routine Respiratory Exam Present: prolonged expiratory phase - *Routine Cardiovascular Exam Present: RRR - *Routine Abdominal Exam Present: soft - *Routine Extremities Exam Absent: edema - *Routine Skin Exam Present: intact - *Routine Neurological Exam Present: motor deficit, altered mental status - Routine Psychiatric Exam Present: unable to assess Assessment and Plan (1) UTI (urinary tract infection) Current visit: Yes Status: Acute Qualifiers: Urinary tract infection type: acute cystitis Hematuria presence: without hematuria Qualified Code(s): N30.00 - Acute cystitis without hematuria Category: Medical Code(s): N39.0 - Urinary tract infection, site not specified (2) H/O kyphoplasty Current visit: No Status: Acute Category: Surgical Code(s): Z98.890 - Other specified postprocedural states (3) History of rib fracture Current visit: No Status: Acute Category: Medical Code(s): Z87.81 - Personal history of (healed) traumatic fracture (4) Tobacco use Current visit: No Status: Acute Category: Social Hx Code(s): Z72.0 - Tobacco use (5) HHD (hypertensive heart disease) Current visit: No Status: Chronic Qualifiers: Heart failure presence: without heart failure Qualified Code(s): I11.9 - Hypertensive heart disease without heart failure Category: Medical Code(s): I11.9 - Hypertensive heart disease without heart failure (6) Hypertension Current visit: No Status: Chronic Qualifiers: Hypertension type: essential hypertension Qualified Code(s): I10 - Essential (primary) hypertension Category: Medical Code(s): I10 - Essential (primary) hypertension (7) Low body mass index (BMI) Current visit: No Status: Chronic Category: Medical (8) Renal insufficiency Current visit: Yes Status: Acute Category: Medical Code(s): N28.9 - Disorder of kidney and ureter, unspecified (9) Encephalomalacia Current visit: Yes Status: Acute Category: Medical Code(s): G93.89 - Other specified disorders of brain (10) CVA (cerebral vascular accident) Current visit: Yes Status: Acute Qualifiers: CVA mechanism: other Qualified Code(s): I63.89 - Other cerebral infarction Category: Medical Code(s): I63.9 - Cerebral infarction, unspecified (11) Cachexia Current visit: Yes Status: Acute Category: Medical Code(s): R64 - Cachexia (12) Wheelchair bound Current visit: No Status: Acute Category: Medical Code(s): Z99.3 - Dependence on wheelchair (13) Protein calorie malnutrition Current visit: No Status: Chronic Qualifiers: Protein-calorie malnutrition severity: unspecified severity Qualified Code(s): E46 - Unspecified protein-calorie malnutrition Category: Medical Code(s): E46 - Unspecified protein-calorie malnutrition (14) Pneumonia, aspiration Current visit: Yes Status: Acute Category: Medical Code(s): J69.0 - Pneumonitis due to inhalation of food and vomit
[2019-08-08 05:56] LABS: Basophils % 0.3 % (0.1-2.0); Eosinophils # 0.7 K/mm3 (0.0-0.4); Eosinophils % 6.1 % (0.1-12.0); Hematocrit 43.9 % (37.0-47.0); Lymphocytes # 0.7 K/mm3 (0.7-4.5); Lymphocytes % 6.6 % (10-50); Mean Corpuscular HGB Conc 32.4 g/dL (31.8-35.4); Mean Corpuscular Volume 87.5 fl (81-99); Mean Platelet Volume 9.4 fl (7.4-10.4); Monocytes # 0.9 K/mm3 (0.1-1.0); Monocytes % 8.7 % (1.7-9.3); Neutrophils # 8.4 K/mm3 (1.8-7.8); Neutrophils % 78.3 % (37.0-80.0); Platelet Count 211 K/mm3 (142-424); Red Blood Count 5.02 M/mm3 (4.20-5.40); Red Cell Distribution Width 14.5 % (11.5-17.5); White Blood Count 10.7 K/mm3 (4.8-10.8)
[2019-08-08 05:59] LABS: Hemoglobin 14.2 g/dL (12.2-16.2)
[2019-08-08 06:08] LABS: Anion Gap 17.5 mEq/L (5-15)
--- NOTE | 2019-08-08 09:33 | Progress Note ---
Internal Medicine - PN: Subj *Date: 08/08/19 *Time: 09:35 Interval history: family at bedside, pt alert Exam Vital signs and Labs for Last 24 Hours: Temp Pulse Resp BP Pulse Ox 97.8 F 85 18 162/99 H 91 L 08/08/19 08:00 08/08/19 08:00 08/08/19 08:00 08/08/19 08:00 08/08/19 08:00 Laboratory Results - last 24 hr 08/07/19 12:22: POC Glucose 114 H 08/08/19 05:33: WBC 10.7 D, RBC 5.02, Hgb 14.2 D, Hct 43.9, MCV 87.5, MCH 28.4, MCHC 32.4, RDW 14.5, Plt Count 211, MPV 9.4, Neut % (Auto) 78.3, Lymph % (Auto) 6.6 L, [place] % (Auto) 8.7, Eos % (Auto) 6.1, Baso % (Auto) 0.3, Neut # (Auto) 8.4 H, Lymph # (Auto) 0.7, [place] # (Auto) 0.9, Eos # (Auto) 0.7 H, Baso # (Auto) 0.0 08/08/19 05:33: Sodium 133 L, Potassium 3.5, Chloride 97 L, Carbon Dioxide 22, Anion Gap 17.5 H, BUN 8 D, Creatinine 0.73 D, Estimated Creat Clear 29, Estimated GFR 77, Est GFR ( Amer) 93 D, Glucose 132 H, Calcium 8.0 L I & O for Last 24 hours: Intake & Output 08/05/19 08/06/19 08/07/19 08/08/19 11:59 11:59 11:59 11:59 Intake Total 635 / 635 1969 / 1968 1779 / 1779 1642 / 1642 Output Total 300 / 300 200 / 200 850 / 850 2150 / 2150 Balance 335 / 335 1769 / 1769 929 / 929 -508 / -508 Weight 85 lb 15.684 oz 92 lb 92 lb 2 oz 89 lb 2 oz Microbiology Reports for the Last 24 Hours: Microbiology 08/03/19 08:49 Blood Blood Culture - Final NO GROWTH AFTER 5 DAYS 08/03/19 08:49 Blood Blood Culture - Final NO GROWTH AFTER 5 DAYS - Constitutional no acute distress, thin, chronically ill appearing - *Routine HEENT Exam Head: Present: normocephalic Eye: Present: PERRL ENT: Present: mucous membranes moist - *Routine Neck Exam Present: supple. Absent: lymphadenopathy - *Routine Respiratory Exam Present: CTA bilaterally - *Routine Cardiovascular Exam Present: RRR - *Routine Abdominal Exam Present: soft, normoactive bowel sounds. Absent: tenderness - *Routine Extremities Exam Present: FARHAN stockings. Absent: cyanosis, clubbing, edema Comments: rt side weakness in upper and lower ext - *Routine Skin Exam Present: warm. Absent: rash - *Routine Neurological Exam Present: alert, oriented X3, facial asymmetry rt side weakness(flaccid), facial drop, unable to talk will smile when spoken to. unable to grasp with rt hand, - Routine Psychiatric Exam Present: normal affect Assessment and Plan (1) UTI (urinary tract infection) Current visit: Yes Status: Acute Qualifiers: Urinary tract infection type: acute cystitis Hematuria presence: without hematuria Qualified Code(s): N30.00 - Acute cystitis without hematuria Category: Medical Code(s): N39.0 - Urinary tract infection, site not specified continue antibiotics remove wilkes (2) H/O kyphoplasty Current visit: No Status: Acute Category: Surgical Code(s): Z98.890 - Other specified postprocedural states (3) History of rib fracture Current visit: No Status: Acute Category: Medical Code(s): Z87.81 - Personal history of (healed) traumatic fracture (4) Tobacco use Current visit: No Status: Acute Category: Social Hx Code(s): Z72.0 - To bacco use (5) HHD (hypertensive heart disease) Current visit: No Status: Chronic Qualifiers: Heart failure presence: without heart failure Qualified Code(s): I11.9 - Hypertensive heart disease without heart failure Category: Medical Code(s): I11.9 - Hypertensive heart disease without heart failure (6) Hypertension Current visit: No Status: Chronic Qualifiers: Hypertension type: essential hypertension Qualified Code(s): I10 - Essential (primary) hypertension Category: Medical Code(s): I10 - Essential (primary) hypertension (7) Low body mass index (BMI) Current visit: No Status: Chronic Category: Medical (8) Renal insufficiency Current visit: Yes Status: Acute Category: Medical Code(s): N28.9 - Disorder of kidney and ureter, unspecified (9) Encephalomalacia Current visit: Yes Status: Acute Category: Medical Code(s): G93.89 - Other specified disorders of brain (10) CVA (cerebral vascular accident) Current visit: Yes Status: Acute Qualifiers: CVA mechanism: other Qualified Code(s): I63.89 - Other cerebral infarction Category: Medical Code(s): I63.9 - Cerebral infarction, unspecified (11) Cachexia Current visit: Yes Status: Acute Category: Medical Code(s): R64 - Cachexia (12) Wheelchair bound Current visit: No Status: Acute Category: Medical Code(s): Z99.3 - Dependence on wheelchair (13) Protein calorie malnutrition Current visit: No Status: Chronic Qualifiers: Protein-calorie malnutrition severity: unspecified severity Qualified Code(s): E46 - Unspecified protein-calorie malnutrition Category: Medical Code(s): E46 - Unspecified protein-calorie malnutrition (14) Pneumonia, aspiration Current visit: Yes Status: Acute Category: Medical Code(s): J69.0 - Pneumonitis due to inhalation of food and vomit - Assessment and plan all Dx Assessment and Plan for all problems:: rounded with dr coffey all orders per alexx modified speech eval eval for poss peg tube placement
--- NOTE | 2019-08-08 14:37 | Consult Report ---
*Admission Date: 08/03/19 *Reason for consult:: PEG tube placement *History of present illness: Patient is an 78-year-old female who had been admitted approximately 5 days ago after she had developed some mental status changes and upon evaluation in the emergency department after transport by EMS was found to have findings of dehydration and pneumonia. During her subsequent hospitalization she has had progressive failure to thrive and neurologic symptoms consistent with cerebrovascular accident. She underwent modified barium swallow today which recommends gastrostomy feedings. Surgical consultation was obtained. Review of Systems - Review of Systems Review of systems:: unable to obtain - *Neurologic Reports confusion, Reports unsteadiness, Reports frequent falls, Reports weakness, Denies headache(s), Denies numbness [facility] History I have reviewed the patient's past medical history: Yes Medical History: Reports:: Hyperlipidemia, Hypertension Denies:: Cancer, Diabetes Mellitus Type 1, Diabetes Mellitus Type 2, MRSA, Seizures *Have you ever received a pneumonia vaccine?: No *Have you received a flu vaccine this season?: No Other Medical History: Denies: Blood Transfusion Reaction Laterality Cases: Bilateral: Mastectomy Other Surgeries: Yes: Other (femur repair) Amputation: No Fractures: Yes (HIP FRACTURE) - *Social History Smoking Status: Current every day smoker Tobacco Type: cigarettes # Packs/Day (cigarettes): 1 Alcohol Intake: former Alcohol Intake Frequency:: 3 or more drinks per day *Occupational Status:: retired, other Housing: house Household Members: family *Travel in the last 8 weeks: None Family Hx:: Stroke Meds Home Medications Medication Instructions Recorded Confirmed Type aspirin 81 mg tablet,delayed 81 mg PO DAILY #90 tab 06/15/19 08/03/19 Rx release losartan 25 mg tablet 25 mg PO DAILY #90 tab 06/15/19 08/03/19 Rx mirtazapine 15 mg tablet 15 mg PO HS #90 tab 06/15/19 08/03/19 Rx hydrocodone 7.5 mg-acetaminophen 1 tab PO BID #60 tab 08/01/19 08/03/19 Rx 325 mg tablet Donepezil HCl [Aricept 10mg 10 mg PO HS 08/03/19 08/03/19 History tablet] Allergies Allergy/AdvReac Type Severity Reaction Status Date / Time tetanus immune globulin Allergy Verified 08/03/19 08:43 Exam Vital signs and Labs for Last 24 Hours: Temp Pulse Resp BP Pulse Ox 97.9 F 57 L 16 108/44 L 93 L 08/08/19 12:00 08/08/19 12:00 08/08/19 12:00 08/08/19 12:00 08/08/19 12:00 Laboratory Results - last 24 hr 08/06/19 08:06: POC Glucose 49 L* 08/08/19 05:33: WBC 10.7 D, RBC 5.02, Hgb 14.2 D, Hct 43.9, MCV 87.5, MCH 28.4, MCHC 32.4, RDW 14.5, Plt Count 211, MPV 9.4, Neut % (Auto) 78.3, Lymph % (Auto) 6.6 L, [place] % (Auto) 8.7, Eos % (Auto) 6.1, Baso % (Auto) 0.3, Neut # (Auto) 8.4 H, Lymph # (Auto) 0.7, [place] # (Auto) 0.9, Eos # (Auto) 0.7 H, Baso # (Auto) 0.0 08/08/19 05:33: Sodium 133 L, Potassium 3.5, Chloride 97 L, Carbon Dioxide 22, Anion Gap 17.5 H, BUN 8 D, Creatinine 0.73 D, Estimated Creat Clear 29, Estimated GFR 77, Est GFR ( Amer) 93 D, Glucose 132 H, Calcium 8.0 L I & O for Last 24 hours: Intake & Output 08/06/19 08/07/19 08/08/19 08/09/19 11:59 11:59 11:59 11:59 Intake Total 1968 / 1968 1779 / 1779 1642 / 1642 0 / 0 Output Total 200 / 200 850 / 850 2450 / 2450 Balance 1769 / 1769 929 / 929 -808 / -808 0 / 0 Weight 92 lb 92 lb 2 oz 89 lb 2 oz Microbiology Reports for the Last 24 Hours: Microbiology 08/03/19 08:49 Blood Blood Culture - Final NO GROWTH AFTER 5 DAYS 08/03/19 08:49 Blood Blood Culture - Final NO GROWTH AFTER 5 DAYS Narrative: Patient is quite frail appearing. Thin. No acute distress. Diminished breath sounds. Her abdomen is soft and nontender with no surgical scars. Results - Labs 08/08/19 05:33 08/08/19 05:33 Laboratory Results - last 24 hr 08/06/19 08:06: POC Glucose 49 L* 08/08/19 05:33: WBC 10.7 D, RBC 5.02, Hgb 14.2 D, Hct 43.9, MCV 87.5, MCH 28.4, MCHC 32.4, RDW 14.5, Plt Count 211, MPV 9.4, Neut % (Auto) 78.3, Lymph % (Auto) 6.6 L, [place] % (Auto) 8.7, Eos % (Auto) 6.1, Baso % (Auto) 0.3, Neut # (Auto) 8.4 H, Lymph # (Auto) 0.7, [place] # (Auto) 0.9, Eos # (Auto) 0.7 H, Baso # (Auto) 0.0 08/08/19 05:33: Sodium 133 L, Potassium 3.5, Chloride 97 L, Carbon Dioxide 22, Anion Gap 17.5 H, BUN 8 D, Creatinine 0.73 D, Estimated Creat Clear 29, Estimated GFR 77, Est GFR ( Amer) 93 D, Glucose 132 H, Calcium 8.0 L Assessment and Plan (1) UTI (urinary tract infection) Current visit: Yes Status: Acute Qualifiers: Urinary tract infection type: acute cystitis Hematuria presence: without hematuria Qualified Code(s): N30.00 - Acute cystitis without hematuria Category: Medical Code(s): N39.0 - Urinary tract infection, site not specified (2) H/O kyphoplasty Current visit: No Status: Acute Category: Surgical Code(s): Z98.890 - Other specified postprocedural states (3) History of rib fracture Current visit: No Status: Acute Category: Medical Code(s): Z87.81 - Personal history of (healed) traumatic fracture (4) Tobacco use Current visit: No Status: Acute Category: Social Hx Code(s): Z72.0 - Tobacco use (5) HHD (hypertensive heart disease) Current visit: No Status: Chronic Qualifiers: Heart failure presence: without heart failure Qualified Code(s): I11.9 - Hypertensive heart disease without heart failure Category: Medical Code(s): I11.9 - Hypertensive heart disease without heart f ailure (6) Hypertension Current visit: No Status: Chronic Qualifiers: Hypertension type: essential hypertension Qualified Code(s): I10 - Essential (primary) hypertension Category: Medical Code(s): I10 - Essential (primary) hypertension (7) Low body mass index (BMI) Current visit: No Status: Chronic Category: Medical (8) Renal insufficiency Current visit: Yes Status: Acute Category: Medical Code(s): N28.9 - Disorder of kidney and ureter, unspecified (9) Encephalomalacia Current visit: Yes Status: Acute Category: Medical Code(s): G93.89 - Other specified disorders of brain (10) CVA (cerebral vascular accident) Current visit: Yes Status: Acute Qualifiers: CVA mechanism: other Qualified Code(s): I63.89 - Other cerebral infarction Category: Medical Code(s): I63.9 - Cerebral infarction, unspecified (11) Cachexia Current visit: Yes Status: Acute Category: Medical Code(s): R64 - Cachexia (12) Wheelchair bound Current visit: No Status: Acute Category: Medical Code(s): Z99.3 - Dependence on wheelchair (13) Protein calorie malnutrition Current visit: No Status: Chronic Qualifiers: Protein-calorie malnutrition severity: unspecified severity Qualified Code(s): E46 - Unspecified protein-calorie malnutrition Category: Medical Code(s): E46 - Unspecified protein-calorie malnutrition (14) Pneumonia, aspiration Current visit: Yes Status: Acute Category: Medical Code(s): J69.0 - Pneumonitis due to inhalation of food and vomit - Assessment and plan all Dx Assessment and Plan for all problems:: Tentatively will plan for percutaneous endoscopic gastrostomy tube placement tomorrow.
--- NOTE | 2019-08-09 06:55 | Progress Note ---
Subjective Narrative: Pt resting. Exam Vital signs and Labs for Last 24 Hours: Temp Pulse Resp BP Pulse Ox 98.8 F 66 18 138/76 95 08/09/19 04:00 08/09/19 04:00 08/09/19 04:00 08/09/19 04:00 08/09/19 04:00 Laboratory Results - last 24 hr 08/06/19 08:06: POC Glucose 49 L* I & O for Last 24 hours: Intake & Output 08/06/19 08/07/19 08/08/19 08/09/19 11:59 11:59 11:59 11:59 Intake Total 1968 / 1968 1779 / 1779 1642 / 1642 891 / 891 Output Total 200 / 200 850 / 850 2450 / 2450 Balance 1769 / 1769 929 / 929 -808 / -808 891 / 891 Weight 92 lb 92 lb 2 oz 89 lb 2 oz 88 lb 2 oz Microbiology Reports for the Last 24 Hours: Microbiology 08/03/19 08:49 Blood Blood Culture - Final NO GROWTH AFTER 5 DAYS 08/03/19 08:49 Blood Blood Culture - Final NO GROWTH AFTER 5 DAYS Narrative: Sleeping. Progress Note: A&P (1) UTI (urinary tract infection) Status: Acute Current Visit: Yes (2) H/O kyphoplasty Status: Acute Current Visit: No (3) History of rib fracture Status: Acute Current Visit: No (4) Tobacco use Status: Acute Current Visit: No (5) HHD (hypertensive heart disease) Status: Chronic Current Visit: No (6) Hypertension Status: Chronic Current Visit: No (7) Low body mass index (BMI) Status: Chronic Current Visit: No (8) Renal insufficiency Status: Acute Current Visit: Yes (9) Encephalomalacia Status: Acute Current Visit: Yes (10) CVA (cerebral vascular accident) Status: Acute Current Visit: Yes (11) Cachexia Status: Acute Current Visit: Yes (12) Wheelchair bound Status: Acute Current Visit: No (13) Protein calorie malnutrition Status: Chronic Current Visit: No (14) Pneumonia, aspiration Status: Acute Current Visit: Yes Assessment and Plan for All Diagnoses:: PEG later today.
[2019-08-09 06:56] LABS: Basophils % 0.3 % (0.1-2.0); Eosinophils # 0.7 K/mm3 (0.0-0.4); Eosinophils % 8.3 % (0.1-12.0); Hematocrit 40.5 % (37.0-47.0); Hemoglobin 12.8 g/dL (12.2-16.2); Lymphocytes # 0.9 K/mm3 (0.7-4.5); Lymphocytes % 9.8 % (10-50); Mean Corpuscular HGB Conc 31.5 g/dL (31.8-35.4); Mean Corpuscular Volume 89.8 fl (81-99); Monocytes # 0.8 K/mm3 (0.1-1.0); Monocytes % 9.4 % (1.7-9.3); Neutrophils # 6.4 K/mm3 (1.8-7.8); Neutrophils % 72.1 % (37.0-80.0); Platelet Count 183 K/mm3 (142-424); Red Blood Count 4.51 M/mm3 (4.20-5.40); Red Cell Distribution Width 14.6 % (11.5-17.5); White Blood Count 8.9 K/mm3 (4.8-10.8)
[2019-08-09 07:02] LABS: Anion Gap 11.6 mEq/L (5-15); Calcium 8.2 mg/dL (8.5-10.1)
--- NOTE | 2019-08-09 09:37 | Progress Note ---
Internal Medicine - PN: Subj *Date: 08/09/19 *Time: 09:37 Exam Vital signs and Labs for Last 24 Hours: Temp Pulse Resp BP Pulse Ox 97.7 F 63 16 157/79 H 96 08/09/19 08:00 08/09/19 08:00 08/09/19 08:00 08/09/19 08:00 08/09/19 08:00 Laboratory Results - last 24 hr 08/06/19 08:06: POC Glucose 49 L* 08/09/19 06:05: WBC 8.9, RBC 4.51, Hgb 12.8, Hct 40.5, MCV 89.8, MCH 28.3, MCHC 31.5 L, RDW 14.6, Plt Count 183, MPV 9.0, Neut % (Auto) 72.1, Lymph % (Auto) 9.8 L, Ritchie % (Auto) 9.4 H, Eos % (Auto) 8.3, Baso % (Auto) 0.3, Neut # (Auto) 6.4, Lymph # (Auto) 0.9, Ritchie # (Auto) 0.8, Eos # (Auto) 0.7 H, Baso # (Auto) 0.0 08/09/19 06:05: Sodium 137, Potassium 2.6 L* D, Chloride 101, Carbon Dioxide 27 D, Anion Gap 11.6, BUN 4 L D, Creatinine 0.73, Estimated Creat Clear 28, Estimated GFR 77, Est GFR ( Amer) 93, Glucose 101, Calcium 8.2 L I & O for Last 24 hours: Intake & Output 08/06/19 08/07/19 08/08/19 08/09/19 23:59 23:59 23:59 23:59 Intake Total 1968 / 1968 2814 / 2814 1498 / 1498 0 / 0 Output Total 750 / 750 1350 / 1950 1400 / 1400 Balance 1219 / 1219 1464 / 864 98 / 98 0 / 0 Weight 92 lb 92 lb 2 oz 89 lb 2 oz 88 lb 2 oz Microbiology Reports for the Last 24 Hours: Microbiology 08/03/19 08:49 Blood Blood Culture - Final NO GROWTH AFTER 5 DAYS 08/03/19 08:49 Blood Blood Culture - Final NO GROWTH AFTER 5 DAYS - Constitutional no acute distress, chronically ill appearing - *Routine HEENT Exam Head: Present: normocephalic, atraumatic. Absent: tenderness of temporal artery Eye: Present: EOMI, PERRL. Absent: conjunctival icterus ENT: Present: mucous membranes dry. Absent: sinus tenderness - *Routine Neck Exam Present: supple. Absent: JVD, tracheal deviation - *Routine Respiratory Exam Present: CTA bilaterally. Absent: accessory muscle use - *Routine Cardiovascular Exam Present: RRR - *Routine Abdominal Exam Present: soft, normoactive bowel sounds. Absent: tenderness, firm - *Routine Extremities Exam Present: pulses intact Comments: R Sided Weakness - *Routine Skin Exam Present: intact, warm. Absent: erythema - *Routine Neurological Exam Present: alert R Sided Weakness - Routine Psychiatric Exam Present: unable to assess Assessment and Plan (1) UTI (urinary tract infection) Current visit: Yes Status: Acute Qualifiers: Urinary tract infection type: acute cystitis Hematuria presence: without hematuria Qualified Code(s): N30.00 - Acute cystitis without hematuria Category: Medical Code(s): N39.0 - Urinary tract infection, site not specified (2) H/O kyphoplasty Current visit: No Status: Acute Category: Surgical Code(s): Z98.890 - Other specified postprocedural states (3) History of rib fracture Current visit: No Status: Acute Category: Medical Code(s): Z87.81 - Personal history of (healed) traumatic fracture (4) Tobacco use Current visit: No Status: Acute Category: Social Hx Code(s): Z72.0 - Tobacco use (5) HHD (hypertensive heart disease) Current visit: No Status: Chronic Qualifiers: Heart failure presence: without heart failure Qualified Code(s): I11.9 - Hypertensive heart disease without heart failure Category: Medical Code(s): I11.9 - Hypertensive heart disease without heart failure (6) Hypertension Current visit: No Status: Chronic Qualifiers: Hypertension type: essential hypertension Qualified Code(s): I10 - Essential (primary) hypertension Category: Medical Code(s): I10 - Essential (primary) hypertension (7) Low body mass index (BMI) Current visit: No Status: Chronic Category: Medical (8) Renal insufficiency Current visit: Yes Status: Acute Category: Medical Code(s): N28.9 - Disorder of kidney and ureter, unspecified (9) Encephalomalacia Current visit: Yes Status: Acute Category: Medical Code(s): G93.89 - Other specified disorders of brain (10) CVA (cerebral vascular accident) Current visit: Yes Status: Acute Qualifiers: CVA mechanism: other Qualified Code(s): I63.89 - Other cerebral infarction Category: Medical Code(s): I63.9 - Cerebral infarction, unspecified (11) Cachexia Current visit: Yes Status: Acute Category: Medical Code(s): R64 - Cachexia (12) Wheelchair bound Current visit: No Status: Acute Category: Medical Code(s): Z99.3 - Dependence on wheelchair (13) Protein calorie malnutrition Current visit: No Status: Chronic Qualifiers: Protein-calorie malnutrition severity: unspecified severity Qualified Code(s): E46 - Unspecified protein-calorie malnutrition Category: Medical Code(s): E46 - Unspecified protein-calorie malnutrition (14) Pneumonia, aspiration Current visit: Yes Status: Acute Category: Medical Code(s): J69.0 - Pneumonitis due to inhalation of food and vomit - Assessment and plan all Dx Assessment and Plan for all problems:: Rounded with Dr. Oconnor, orders per Dr. Oconnor 1. Potassium 2.6 will receive 3 rounds of 20 K 2. PEG placement today
--- NOTE | 2019-08-09 11:01 | Progress Note ---
Internal Medicine - PN: Subj *Date: 08/09/19 *Time: 11:01 Exam Vital signs and Labs for Last 24 Hours: Temp Pulse Resp BP Pulse Ox 97.7 F 63 16 157/79 H 96 08/09/19 08:00 08/09/19 08:00 08/09/19 08:00 08/09/19 08:00 08/09/19 08:00 Laboratory Results - last 24 hr 08/09/19 06:05: WBC 8.9, RBC 4.51, Hgb 12.8, Hct 40.5, MCV 89.8, MCH 28.3, MCHC 31.5 L, RDW 14.6, Plt Count 183, MPV 9.0, Neut % (Auto) 72.1, Lymph % (Auto) 9.8 L, Mcculloch % (Auto) 9.4 H, Eos % (Auto) 8.3, Baso % (Auto) 0.3, Neut # (Auto) 6.4, Lymph # (Auto) 0.9, [place]och # (Auto) 0.8, Eos # (Auto) 0.7 H, Baso # (Auto) 0.0 08/09/19 06:05: Sodium 137, Potassium 2.6 L* D, Chloride 101, Carbon Dioxide 27 D, Anion Gap 11.6, BUN 4 L D, Creatinine 0.73, Estimated Creat Clear 28, Estimated GFR 77, Est GFR ( Amer) 93, Glucose 101, Calcium 8.2 L I & O for Last 24 hours: Intake & Output 08/06/19 08/07/19 08/08/19 08/09/19 23:59 23:59 23:59 23:59 Intake Total 1969 / 1968 2814 / 2814 1498 / 1498 0 / 0 Output Total 750 / 750 1350 / 1950 1400 / 1400 Balance 1219 / 1219 1464 / 864 98 / 98 0 / 0 Weight 41.73 kg 41.787 kg 40.426 kg 39.973 kg Microbiology Reports for the Last 24 Hours: Microbiology 08/03/19 08:49 Blood Blood Culture - Final NO GROWTH AFTER 5 DAYS 08/03/19 08:49 Blood Blood Culture - Final NO GROWTH AFTER 5 DAYS Assessment and Plan (1) UTI (urinary tract infection) Current visit: Yes Status: Acute Qualifiers: Urinary tract infection type: acute cystitis Hematuria presence: without hematuria Qualified Code(s): N30.00 - Acute cystitis without hematuria Category: Medical Code(s): N39.0 - Urinary tract infection, site not specified (2) H/O kyphoplasty Current visit: No Status: Acute Category: Surgical Code(s): Z98.890 - Other specified postprocedural states (3) History of rib fracture Current visit: No Status: Acute Category: Medical Code(s): Z87.81 - Personal history of (healed) traumatic fracture (4) Tobacco use Current visit: No Status: Acute Category: Social Hx Code(s): Z72.0 - Tobacco use (5) HHD (hypertensive heart disease) Current visit: No Status: Chronic Qualifiers: Heart failure presence: without heart failure Qualified Code(s): I11.9 - Hypertensive heart disease without heart failure Category: Medical Code(s): I11.9 - Hypertensive heart disease without heart failure (6) Hypertension Current visit: No Status: Chronic Qualifiers: Hypertension type: essential hypertension Qualified Code(s): I10 - Essential (primary) hypertension Category: Medical Code(s): I10 - Essential (primary) hypertension (7) Low body mass index (BMI) Current visit: No Status: Chronic Category: Medical (8) Renal insufficiency Current visit: Yes Status: Acute Category: Medical Code(s): N28.9 - Disorder of kidney and ureter, unspecified (9) Encephalomalacia Current visit: Yes Status: Acute Category: Medical Code(s): G93.89 - Other specified disorders of brain (10) CVA (cerebral vascular accident) Current visit: Yes Status: Acute Qualifiers: CVA mechanism: other Qualified Code(s): I63.89 - Other cerebral infarction Category: Medical Code(s): I63.9 - Cerebral infarction, unspecified (11) Cachexia Current visit: Yes Status: Acute Category: Medical Code(s): R64 - Cachexia (12) Wheelchair bound Current visit: No Status: Acute Category: Medical Code(s): Z99.3 - Dependence on wheelchair (13) Protein calorie malnutrition Current visit: No Status: Chronic Qualifiers: Protein-calorie malnutrition severity: unspecified severity Qualified Code(s): E46 - Unspecified protein-calorie malnutrition Category: Medical Code(s): E46 - Unspecified protein-calorie malnutrition (14) Pneumonia, aspiration Current visit: Yes Status: Acute Category: Medical Code(s): J69.0 - Pneumonitis due to inhalation of food and vomit The patient's infection will respond to the chosen ABx?: Yes Is the patient receiving the right drug, dose, and route?: Yes Could a more targeted ABx be ordered?: No
--- NOTE | 2019-08-09 16:37 | Progress Note ---
[facility] Anesthesia Checklist - Structural Data Admitted From: Inpatient Planned Operative Procedure/s: peg tube placement Consent for Planned Operative Procedure(s) Verified: Yes - Additional verifications Anesthesia Reactions: No Hx Blood Transfusions: No Blood Transfusion Reaction: No - Airway Assessment C-Spine Mobility Assessed: Yes TMJ Mobility Assessed: Yes Dentition: Edentulous - Neurological Assessment Level of Consciousness: Awake, Inappropriate, Restless - Anesthesia Plan Anesthesia Risk discussed: No Anesthesia Plan: Patient unable to respond/answer ASA Class: IV Anesthesia Type: MAC [facility] History I have reviewed the patient's past medical history: Yes Medical History: Reports:: Hyperlipidemia, Hypertension Denies:: Cancer, Diabetes Mellitus Type 1, Diabetes Mellitus Type 2, MRSA, Seizures *Have you ever received a pneumonia vaccine?: No *Have you received a flu vaccine this season?: No Other Medical History: Denies: Blood Transfusion Reaction Anesthesia experience/problems:: none Laterality Cases: Bilateral: Mastectomy Other Surgeries: Yes: Other (femur repair) Amputation: No Fractures: Yes (HIP FRACTURE) - *Social History Smoking Status: Current every day smoker Tobacco Type: cigarettes # Packs/Day (cigarettes): 1 Alcohol Intake: former Alcohol Intake Frequency:: 3 or more drinks per day Substance Use Type: unknown *Occupational Status:: retired, other Housing: house Household Members: family *Travel in the last 8 weeks: None Family Hx:: Stroke
--- NOTE | 2019-08-09 16:41 | Procedure Note ---
- Procedure: Date: 08/09/19 Procedure Performed:: Placement of 20 Citizen [place] pull type percutaneous endoscopic gastrostomy tube Indications:: Patient is an 78-year-old debilitated female who has been admitted to hospital for several days. She has shown symptoms of cerebrovascular accident. She had a speech therapy modified barium swallow which revealed aspiration and gastrostomy tube was recommended. Surgical consultation was obtained yesterday and arrangements were made for percutaneous endoscopic gastrostomy tube today. Performing Provider:: Roe Shoemaker MD Referring Provider:: Sandro Oconnor MD Sedation:: Propofol Procedure:: Patient was taken to endoscopy procedure room. She was maintained on the hospital bed in a supine position. Adequate intravenous sedation was achieved. Endoscope was inserted via the oropharynx advanced to the esophagus. Esophagus appeared normal. Stomach was cannulated and insufflated. She had evidence of a very floppy stomach as there was a visible light reflex on the anterior abdominal wall when the endoscope was in the fundus with the light reflex being visualized in the left lower quadrant. The endoscope was advanced to the antrum in the prepyloric location. There is good light reflex at this point in the right upper abdomen. Local anesthetic was infiltrated superficially and then deeply into the abdominal tissue. Approximately 1 cm incision was made. Catheter was inserted once good angle was identified into the gastric lumen. Needle was removed leaving the catheter in place. Loop guidewire was inserted through the catheter. With the grasping loop which had been inserted through the endoscope the loop guidewire was grasped with the grasping loop. The endoscope with the loop guidewire was then withdrawn via the oropharynx. 20 [place] pull type PEG tube was secured to the loop guidewire. Traction was then placed on the loop guidewire such that the gastrostomy tube was pulled through the esophagus and stomach to exit the abdomen. Completion endoscopy was performed which revealed location of the bulb in the prepyloric location in the antrum. Stomach was desufflated and the endoscope was withdrawn. The g astrostomy site antibiotic ointment was applied as was dressing and the obturator bumper. The gastrostomy tube was then cut to the appropriate length and the feeding apparatus valve was attached. Patient tolerated procedure well with no immediately apparent complications. Findings:: Large floppy stomach Recommendations:: Recommend keeping the PEG tube clamped and protected for 24 hours and may start using tomorrow if patient clinically stable. Complications:: None immediately apparent Estimated blood obtained (mL): 4
--- NOTE | 2019-08-10 07:13 | Progress Note ---
Subjective Narrative: No issues overnight after PEG placement. Exam Vital signs and Labs for Last 24 Hours: Temp Pulse Resp BP Pulse Ox 97.8 F 70 18 136/76 98 08/10/19 04:00 08/10/19 04:00 08/10/19 04:00 08/10/19 04:00 08/10/19 04:00 Laboratory Results - last 24 hr 08/09/19 15:15: Potassium 3.9 D I & O for Last 24 hours: Intake & Output 08/07/19 08/08/19 08/09/19 08/10/19 11:59 11:59 11:59 11:59 Intake Total 1779 / 1779 1642 / 1642 891 / 891 931 / 931 Output Total 850 / 850 2450 / 2450 Balance 929 / 929 -808 / -808 891 / 891 931 / 931 Weight 92 lb 2 oz 89 lb 2 oz 88 lb 2 oz 96 lb 3 oz - *Routine Abdominal Exam Present: soft. Absent: tenderness Comments: Gastrostomy site clean and intact. Progress Note: A&P (1) UTI (urinary tract infection) Status: Acute Current Visit: Yes (2) H/O kyphoplasty Status: Acute Current Visit: No (3) History of rib fracture Status: Acute Current Visit: No (4) Tobacco use Status: Acute Current Visit: No (5) HHD (hypertensive heart disease) Status: Chronic Current Visit: No (6) Hypertension Status: Chronic Current Visit: No (7) Low body mass index (BMI) Status: Chronic Current Visit: No (8) Renal insufficiency Status: Acute Current Visit: Yes (9) Encephalomalacia Status: Acute Current Visit: Yes (10) CVA (cerebral vascular accident) Status: Acute Current Visit: Yes (11) Cachexia Status: Acute Current Visit: Yes (12) Wheelchair bound Status: Acute Current Visit: No (13) Protein calorie malnutrition Status: Chronic Assessment and plan: May begin using PEG. Current Visit: No (14) Pneumonia, aspiration Status: Acute Current Visit: Yes
[2019-08-10 07:22] LABS: Basophils % 0.3 % (0.1-2.0); Eosinophils # 0.5 K/mm3 (0.0-0.4); Eosinophils % 4.8 % (0.1-12.0); Hematocrit 39.1 % (37.0-47.0); Hemoglobin 12.8 g/dL (12.2-16.2); Lymphocytes # 0.8 K/mm3 (0.7-4.5); Lymphocytes % 7.9 % (10-50); Mean Corpuscular HGB Conc 32.7 g/dL (31.8-35.4); Mean Corpuscular Volume 87.7 fl (81-99); Mean Platelet Volume 9.2 fl (7.4-10.4); Monocytes # 0.7 K/mm3 (0.1-1.0); Monocytes % 6.7 % (1.7-9.3); Neutrophils # 8.4 K/mm3 (1.8-7.8); Neutrophils % 80.2 % (37.0-80.0); Platelet Count 207 K/mm3 (142-424); Red Blood Count 4.46 M/mm3 (4.20-5.40); Red Cell Distribution Width 14.9 % (11.5-17.5); White Blood Count 10.4 K/mm3 (4.8-10.8)
[2019-08-10 07:39] LABS: Anion Gap 12.4 mEq/L (5-15); Calcium 8.2 mg/dL (8.5-10.1)
--- NOTE | 2019-08-10 10:19 | Progress Note ---
Internal Medicine - PN: Subj *Date: 08/10/19 *Time: 12:00 Interval history: 78 YOF in bed, PEG placed 08/09/2019. She will smile when spoken to. Drsg to PED C/D/I Exam Vital signs and Labs for Last 24 Hours: Temp Pulse Resp BP Pulse Ox 97.8 F 70 18 136/76 98 08/10/19 04:00 08/10/19 04:00 08/10/19 04:00 08/10/19 04:00 08/10/19 04:00 Laboratory Results - last 24 hr 08/09/19 15:15: Potassium 3.9 D 08/10/19 06:56: WBC 10.4, RBC 4.46, Hgb 12.8, Hct 39.1, MCV 87.7, MCH 28.7, MCHC 32.7, RDW 14.9, Plt Count 207, MPV 9.2, Neut % (Auto) 80.2 H, Lymph % (Auto) 7.9 L, Catron % (Auto) 6.7, Eos % (Auto) 4.8, Baso % (Auto) 0.3, Neut # (Auto) 8.4 H, Lymph # (Auto) 0.8, Catron # (Auto) 0.7, Eos # (Auto) 0.5 H, Baso # (Auto) 0.0 08/10/19 06:56: Sodium 133 L, Potassium 3.4 L, Chloride 100, Carbon Dioxide 24, Anion Gap 12.4, BUN 5 L, Creatinine 0.68, Estimated Creat Clear 31, Estimated GFR 83, Est GFR ( Amer) 101, Glucose 119 H, Calcium 8.2 L I & O for Last 24 hours: Intake & Output 08/07/19 08/08/19 08/09/19 08/10/19 23:59 23:59 23:59 23:59 Intake Total 2814 / 2814 1498 / 1498 200 / 200 731 / 731 Output Total 1350 / 1950 1400 / 1400 Balance 1464 / 864 98 / 98 200 / 200 731 / 731 Weight 92 lb 2 oz 89 lb 2 oz 88 lb 2 oz 96 lb 3 oz - Constitutional no acute distress - *Routine HEENT Exam Head: Present: normocephalic, atraumatic. Absent: tenderness of temporal artery Eye: Present: EOMI. Absent: periorbital tenderness ENT: Present: mucous membranes dry. Absent: sinus tenderness - *Routine Neck Exam Present: supple, trachea midline. Absent: JVD, tracheal deviation - *Routine Respiratory Exam Present: CTA bilaterally, diminished air movement. Absent: accessory muscle use - *Routine Cardiovascular Exam Present: RRR - *Routine Abdominal Exam Present: soft, normoactive bowel sounds. Absent: tenderness, firm Comments: PEG Placed - *Routine Extremities Exam Present: pulses intact, FARHAN stockings. Absent: cyanosis, edema - *Routine Skin Exam Present: dry, warm. Absent: jaundice - *Routine Neurological Exam Present: alert R Sided weakness Assessment and Plan (1) UTI (urinary tract infection) Current visit: Yes Status: Acute Qualifiers: Urinary tract infection type: acute cystitis Hematuria presence: without hematuria Qualified Code(s): N30.00 - Acute cystitis without hematuria Category: Medical Code(s): N39.0 - Urinary tract infection, site not specified (2) H/O kyphoplasty Current visit: No Status: Acute Category: Surgical Code(s): Z98.890 - Other specified postprocedural states (3) History of rib fracture Current visit: No Status: Acute Category: Medical Code(s): Z87.81 - Personal history of (healed) traumatic fracture (4) Tobacco use Current visit: No Status: Acute Category: Social Hx Code(s): Z72.0 - Tobacco use (5) HHD (hypertensive heart disease) Current visit: No Status: Chronic Qualifiers: Heart failure presence: without heart failure Qualified Code(s): I11.9 - Hypertensive heart disease without heart failure Category: Medical Code(s): I11.9 - Hypertensive heart disease without heart failure (6) Hypertension Current visit: No Status: Chronic Qualifiers: Hypertension type: essential hypertension Qualified Code(s): I10 - Essential (primary) hypertension Category: Medical Code(s): I10 - Essential (primary) hypertension (7) Low body mass index (BMI) Current visit: No Status: Chronic Category: Medical (8) Renal insufficiency Current visit: Yes Status: Acute Category: Medical Code(s): N28.9 - Disorder of kidney and ureter, unspecified (9) Encephalomalacia Current visit: Yes Status: Acute Category: Medical Code(s): G93.89 - Other specified disorders of brain (10) CVA (cerebral vascular accident) Current visit: Yes Status: Acute Qualifiers: CVA mechanism: other Qualified Code(s): I63.89 - Other cerebral infarction Category: Medical Code(s): I63.9 - Cerebral infarction, unspecified (11) Cachexia Current visit: Yes Status: Acute Category: Medical Code(s): R64 - Cachexia (12) Wheelchair bound Current visit: No Status: Acute Category: Medical Code(s): Z99.3 - Dependence on wheelchair (13) Protein calorie malnutrition Current visit: No Status: Chronic Qualifiers: Protein-calorie malnutrition severity: unspecified severity Qualified Code(s): E46 - Unspecified protein-calorie malnutrition Category: Medical Code(s): E46 - Unspecified protein-calorie malnutrition (14) Pneumonia, aspiration Current visit: Yes Status: Acute Category: Medical Code(s): J69.0 - Pneumonitis due to inhalation of food and vomit - Assessment and plan all Dx Assessment and Plan for all problems:: Rounded w/ Dr. Oconnor, all orders per 1. TF per Gen Surg 2. Possible D/C tomorrow
[2019-08-11 07:03] LABS: Basophils % 0.2 % (0.1-2.0); Eosinophils # 0.7 K/mm3 (0.0-0.4); Eosinophils % 6.7 % (0.1-12.0); Hematocrit 38.5 % (37.0-47.0); Lymphocytes # 0.8 K/mm3 (0.7-4.5); Lymphocytes % 7.5 % (10-50); Mean Corpuscular HGB Conc 31.3 g/dL (31.8-35.4); Mean Corpuscular Volume 90.1 fl (81-99); Mean Platelet Volume 9.3 fl (7.4-10.4); Monocytes # 0.9 K/mm3 (0.1-1.0); Monocytes % 8.7 % (1.7-9.3); Neutrophils # 8.3 K/mm3 (1.8-7.8); Neutrophils % 76.9 % (37.0-80.0); Platelet Count 174 K/mm3 (142-424); Red Blood Count 4.27 M/mm3 (4.20-5.40); White Blood Count 10.8 K/mm3 (4.8-10.8)
[2019-08-11 08:24] LABS: Anion Gap 15.4 mEq/L (5-15)
--- NOTE | 2019-08-11 09:41 | Discharge Summary ---
General - General Admission date:: 08/03/19 Discharge date: 08/11/19 HPI HPI: this pt presented to the ed -presents to ed by ems. ems states that this morning when patients son got her up she "passed out." pt has recently been treated for pneumonia. 78-year-old female presenting to the emergency department after a syncopal episode. EMS states that the patient's son went to help her get up this morning and she was fatigued, had difficulty standing. Unclear if she fell or not. On arrival to the emergency department patient is a very poor historian. Answers yes and no questions appropriately, but does not provide additional information. Chart review states that she has a history of low BMI, alcohol use, tobacco use. EMS stated that she was being treated for pneumonia at home. Do not believe that she uses oxygen at home. Patient denies any current chest pain, abdominal pain, nausea, vomiting, speech difficulty, focal numbness or weakness. n summary this is an 78-year-old female presenting to the emergency department with altered mental status and shortness of breath. Patient is requiring 2 L by nasal cannula to maintain oxygen saturations greater than 90%. Afebrile another vital signs stable on arrival to the emergency department. She is frail. Differential diagnoses include pneumonia, bronchitis, ACS, urinary tract infection, respiratory failure. Plan to obtain CBC, CMP, urinalysis, ABG, chest x-ray, EKG, troponin profile, noncontrast head CT and reassess. Patient given DuoNeb Chart review states that the patient is on Keflex and steroids for treatment of presumptive pneumonia. Laboratory results remarkable for elevated creatinine at 1.20. Urinalysis shows signs of urinary tract infection with leukoesterase and bacteria. Patient also appears to be dehydrated. Given IV fluid bolus, IV Rocephin. She still is requiring 2 L by nasal cannula. Does not use home oxygen. We will add azithromycin for atypical pneumonia coverage. Hospital medicine, Dr. Coffey, consulted for evaluation admission. pt with abn ua and had been treated as pneumonia as op will admit with orders Hospital Course Hospital Course: Laboratory Results - last 72 hr 08/06/19 08/09/19 08/09/19 08:06 06:05 06:05 WBC 8.9 RBC 4.51 Hgb 12.8 Hct 40.5 MCV 89.8 MCH 28.3 MCHC 31.5 L RDW 14.6 Plt Count 183 MPV 9.0 Neut % (Auto) 72.1 Lymph % (Auto) 9.8 L [place] % (Auto) 9.4 H Eos % (Auto) 8.3 Baso % (Auto) 0.3 Neut # (Auto) 6.4 Lymph # (Auto) 0.9 [place] # (Auto) 0.8 Eos # (Auto) 0.7 H Baso # (Auto) 0.0 Sodium 137 Potassium 2.6 L* D Chloride 101 Carbon Dioxide 27 D Anion Gap 11.6 BUN 4 L D Creatinine 0.73 Estimated Creat Clear 28 Estimated GFR 77 Est GFR ( Amer) 93 Glucose 101 POC Glucose 49 L* Calcium 8.2 L 08/09/19 08/10/19 08/10/19 15:15 06:56 06:56 WBC 10.4 RBC 4.46 Hgb 12.8 Hct 39.1 MCV 87.7 MCH 28.7 MCHC 32.7 RDW 14.9 Plt Count 207 MPV 9.2 Neut % (Auto) 80.2 H Lymph % (Auto) 7.9 L [place] % (Auto) 6.7 Eos % (Auto) 4.8 Baso % (Auto) 0.3 Neut # (Auto) 8.4 H Lymph # (Auto) 0.8 [place] # (Auto) 0.7 Eos # (Auto) 0.5 H Baso # (Auto) 0.0 Sodium 133 L Potassium 3.9 D 3.4 L Chloride 100 Carbon Dioxide 24 Anion Gap 12.4 BUN 5 L Creatinine 0.68 Estimated Creat Clear 31 Estimated GFR 83 Est GFR ( Amer) 101 Glucose 119 H POC Glucose Calcium 8.2 L 08/11/19 08/11/19 06:18 06:18 WBC 10.8 RBC 4.27 Hgb 12.0 L Hct 38.5 MCV 90.1 MCH 28.2 MCHC 31.3 L RDW 15.0 Plt Count 174 MPV 9.3 Neut % (Auto) 76.9 Lymph % (Auto) 7.5 L [place] % (Auto) 8.7 Eos % (Auto) 6.7 Baso % (Auto) 0.2 Neut # (Auto) 8.3 H Lymph # (Auto) 0.8 [place] # (Auto) 0.9 Eos # (Auto) 0.7 H Baso # (Auto) 0.0 Sodium 135 L Potassium 3.4 L Chloride 101 Carbon Dioxide 22 Anion Gap 15.4 H BUN 8 D Creatinine 0.64 Estimated Creat Clear 30 Estimated GFR 89 Est GFR ( Amer) 108 Glucose 95 D POC Glucose Calcium 8.0 L Microbiology 08/03/19 08:49 Blood Blood Culture - Final NO GROWTH AFTER 5 DAYS 08/03/19 08:49 Blood Blood Culture - Final NO GROWTH AFTER 5 DAYS 08/03/19 08:49 Urine,Catheterized Urine Culture - Final Escherichia coli pt will be dc home with hospice, tube feeding per peg. uti- ecoli- treated cva- rt side weakness and unable to grasp with rt hand or more rt side ext. Objective Vital signs: Temp Pulse Resp BP Pulse Ox 94.9 F L 64 14 143/96 H 96 08/11/19 08:00 08/11/19 08:00 08/11/19 08:00 08/11/19 08:00 08/11/19 08:00 no acute distress, thin, chronically ill appearing - *Routine HEENT Exam Head: Present: normocephalic Eye: Present: PERRL ENT: Present: mucous membranes moist - *Routine Respiratory Exam Present: CTA bilaterally, rhonchi - *Routine Cardiovascular Exam Present: RRR - *Routine Abdominal Exam Present: soft Comments: peg tube with abd binder - *Routine Extremities Exam Present: normal capillary refill Comments: rt side ext flaccid - *Routine Skin Exam Present: intact - *Routine Neurological Exam Present: alert, motor deficit, facial asymmetry unable to speak, rt side flaccid - Routine Psychiatric Exam Present: unable to assess Results Labs on day of discharge: Labs from last 24 hours 08/11/19 08/11/19 06:18 06:18 WBC 10.8 RBC 4.27 Hgb 12.0 L Hct 38.5 MCV 90.1 MCH 28.2 MCHC 31.3 L RDW 15.0 Plt Count 174 MPV 9.3 Neut % (Auto) 76.9 Lymph % (Auto) 7.5 L [place] % (Auto) 8.7 Eos % (Auto) 6.7 Baso % (Auto) 0.2 Neut # (Auto) 8.3 H Lymph # (Auto) 0.8 [place] # (Auto) 0.9 Eos # (Auto) 0.7 H Baso # (Auto) 0.0 Sodium 135 L Potassium 3.4 L Chloride 101 Carbon Dioxide 22 Anion Gap 15.4 H BUN 8 D Creatinine 0.64 Estimated Creat Clear 30 Estimated GFR 89 Est GFR ( Amer) 108 Glucose 95 D Calcium 8.0 L - Additional Comments rounded with dr coffey all orders per dr coffey DS: Diagnosis - Discharge Diagnosis (1) UTI (urinary tract infection) Status: Acute (2) H/O kyphoplasty Status: Acute (3) History of rib fracture Status: Acute (4) Tobacco use Status: Acute (5) HHD (hypertensive heart disease) Status: Chronic (6) Hypertension Status: Chronic (7) Low body mass index (BMI) Status: Chronic (8) Renal insufficiency Status: Acute (9) Encephalomalacia Status: Acute (10) CVA (cerebral vascular accident) Status: Acute (11) Cachexia Status: Acute (12) Wheelchair bound Status: Acute (13) Protein calorie malnutrition Status: Chronic (14) Pneumonia, aspiration Status: Acute Discharge Plan - Patient Discharge Instructions ACTIVITY: Continue current activity DIET: continue same diet Patient Instructions: DI for Pneumonia -- Adult, DI for Stroke-Ischemic, DI for Urinary Tract Infection (UTI), [id number]-Adults - Follow up Plan Follow up with: Chalino Coffey MD [Primary Care Provider] - Disposition: Hospice - Home Home Medications: Home Medications Medication Instructions Recorded Confirmed Type aspirin 81 mg tablet,delayed 81 mg PO DAILY #90 tab 06/15/19 08/03/19 Rx release losartan 25 mg tablet 25 mg PO DAILY #90 tab 06/15/19 08/03/19 Rx mirtazapine 15 mg tablet 15 mg PO HS #90 tab 06/15/19 08/03/19 Rx hydrocodone 7.5 mg-acetaminophen 1 tab PO BID #60 tab 08/01/19 08/03/19 Rx 325 mg tablet Donepezil HCl [Aricept 10mg 10 mg PO HS 08/03/19 08/03/19 History tablet] Prescriptions/Medication Reconciliation: Continued aspirin 81 mg tablet,delayed release 81 mg PO DAILY #90 tab losartan 25 mg tablet 25 mg PO DAILY #90 tab mirtazapine 15 mg tablet 15 mg PO HS #90 tab hydrocodone 7.5 mg-acetaminophen 325 mg tablet 1 tab PO BID #60 tab Donepezil HCl [Aricept 10mg tablet] 10 mg PO HS - Problem Reconciliation Problems Reviewed?: Yes
== END 2019-08-11 11:35 | disposition hospice, home (50) | DRG 64 ==
LOC: ER 08:38 → 2ND 08:38 → OBSVTOIN 12:19 → 2ND 12:19
PROVIDERS: ADMIT Emergency Medicine; ATTEND Emergency Medicine
CPT/HCPCS: 36415; 70371; 70450; 71010; 71020; 71045; 71046; 80048; 80053; 81001; 82803; 82962; 83605; 84132; 84484; 85025; 87040; 87086; 87088; 87186; 87275; 87276; 92526; 92610; 92611; 93005; 94761; 96365; 96367; 96375; 97110; 97166; 97530; 97535; 99285; J0456; J1335